=== PATIENT | male | born 1940 | race Caucasian/White ===

== ENCOUNTER → 2018-04-29 10:13 | Outpatient (CLI) | payer MEDICARE, OTHER, SELFPAY ==
[2018-04-29 11:01] LABS: Blood Urea Nitrogen 20 mg/dL (9-20); Calcium 9.7 mg/dL (8.4-10.2); Carbon Dioxide 22 mmol/L (22-32); Chloride 101 mmol/L (98-107); Estimated Glomerular Filt Rate > 60.0 mL/min (>60); Glucose 106 mg/dL (80-110); HEMOLYSIS < 15 (0-50); Potassium 4.5 mmol/L (3.4-5.1); Sodium 141 mmol/L (137-145)
[2018-04-29 12:06] LABS: Creatinine Urine Random 77.2 mg/dL; Protein (Total) Urine Random 65 mg/dL (0-12); Protein Creatinine Ratio Urine 0.84 GRAM/24H
[2018-04-29 13:43] LABS: Hematocrit 40.2 % (41-53); Hemoglobin 13.8 g/dL (13.5-17.5); Mean Corpuscular HGB Conc 34.3 % (30-36); Mean Corpuscular Hemoglobin 31.4 PG (26-34); Mean Corpuscular Volume 91.6 fL (80-100); Platelet Count 200 X10^3/uL (150-400); Red Blood Cell Count 4.39 X10^6/uL (4.5-5.9); Red Cell Distribution Width 13.7 % (11.6-14.8); White Blood Cell Count 4.5 X10^3/uL (4.5-11.0)
[2018-05-01 17:35] LABS: Tacrolimus 8.2 mcg/L (5.0-20.0)
== END ==
PROVIDERS: PCP Family Medicine; Visit Provider Student in an Organized Health Care Education/Training Program
DX: N05.9 Unspecified nephritic syndrome with unspecified morphologic changes (principal); D63.1 Anemia in chronic kidney disease; T86.10 Unspecified complication of kidney transplant; R80.9 Proteinuria, unspecified
CPT/HCPCS: 36415; 80048; 80197; 82570; 84156; 85027

== ENCOUNTER → 2018-06-24 13:06 | Outpatient (CLI) | payer MEDICARE, OTHER, SELFPAY ==
[2018-06-24 14:27] LABS: Hemoglobin 13.8 g/dL (13.5-17.5); Mean Corpuscular HGB Conc 34.5 % (30-36); Mean Corpuscular Hemoglobin 31.5 PG (26-34); Mean Corpuscular Volume 91.4 fL (80-100); Platelet Count 229 X10^3/uL (150-400); Red Blood Cell Count 4.38 X10^6/uL (4.5-5.9); Red Cell Distribution Width 14.1 % (11.6-14.8); White Blood Cell Count 4.3 X10^3/uL (4.5-11.0)
[2018-06-24 15:06] LABS: Blood Urea Nitrogen 24 mg/dL (9-20); Calcium 10.8 mg/dL (8.4-10.2); Carbon Dioxide 25 mmol/L (22-32); Chloride 101 mmol/L (98-107); Estimated Glomerular Filt Rate > 60.0 mL/min (>60); Glucose 117 mg/dL (80-110); HEMOLYSIS < 15 (0-50); Potassium 5.3 mmol/L (3.4-5.1); Sodium 140 mmol/L (137-145)
[2018-06-24 15:48] LABS: Creatinine Urine Random 78.8 mg/dL; Protein (Total) Urine Random 65 mg/dL (0-12); Protein Creatinine Ratio Urine 0.82 GRAM/24H
[2018-06-27 13:52] LABS: Tacrolimus 7.1 mcg/L (5.0-20.0)
== END ==
PROVIDERS: PCP Family Medicine; Visit Provider Student in an Organized Health Care Education/Training Program
DX: N05.9 Unspecified nephritic syndrome with unspecified morphologic changes (principal); D70.9 Neutropenia, unspecified; D63.1 Anemia in chronic kidney disease; T86.10 Unspecified complication of kidney transplant; R80.9 Proteinuria, unspecified; I50.32 Chronic diastolic (congestive) heart failure; D50.0 Iron deficiency anemia secondary to blood loss (chronic); D64.9 Anemia, unspecified
CPT/HCPCS: 36415; 80048; 80197; 82570; 84156; 85027

== ENCOUNTER → 2018-06-29 17:13 | Outpatient (CLI) | payer MEDICARE, OTHER, SELFPAY ==
[2018-06-29 17:55] LABS: HEMOLYSIS < 15 (0-50); Potassium 5.1 mmol/L (3.4-5.1)
== END ==
PROVIDERS: PCP Family Medicine; Visit Provider Student in an Organized Health Care Education/Training Program
DX: E78.5 Hyperlipidemia, unspecified (principal)
CPT/HCPCS: 36415; 84132

== ENCOUNTER → 2018-09-07 16:54 | Outpatient (CLI) | payer MEDICARE, OTHER, SELFPAY ==
--- NOTE | 2018-09-07 17:00 | DI.RAD.S_ITS ---
PROCEDURE: XR LUMBAR SPINE 2-3V INDICATIONS: HX OF COMPRESSION FRACTURE/BACK PAIN TECHNIQUE: 3 views of the lumbar spine were acquired. COMPARISON: [facility], CR, L-SPINE 2-3 VIEWS, 01/18/2018, 14:29. [facility] [place], CR, XR LUMBAR SPINE 2 OR 3 VIEWS, 04/08/2018, 16:18. [facility], MR, L-SPINE WITHOUT CONTRAST, 02/18/2018, 16:17. FINDINGS: Bones: 5 [id number] vertebrae are present. There is normal bony alignment. Mild chronic vertebral body compression fracture of L2 appears unchanged. There is severe degenerative disc disease at L2-L3, and mild to moderate degenerative disc disease at L1-L2, L3-L4 and L5 -S1. Moderate facet disease at L5-S1. No suspicious bony lesions. Soft tissues: Overlying bowel gas pattern is normal. No suspicious soft tissue calcifications. IMPRESSION: 1. Mild chronic compression fracture of L2. 2. Degenerative disc and facet disease. Dictated by: Chelsea Gongora M.D. on 09/08/2018 at 8:50 Approved by: Chelsea Gongora M.D. on 09/08/2018 at 8:53
== END ==
PROVIDERS: PCP Family Medicine; Visit Provider Family Medicine
DX: M54.9 Dorsalgia, unspecified (principal); M48.56XS Collapsed vertebra, not elsewhere classified, lumbar region, sequela of fracture; M51.36 Other intervertebral disc degeneration, lumbar region; M51.37 Other intervertebral disc degeneration, lumbosacral region
CPT/HCPCS: 72100

== ENCOUNTER → 2018-10-05 14:33 | Outpatient (CLI) | payer MEDICARE, OTHER, SELFPAY ==
[2018-10-05 15:35] LABS: Hematocrit 38.1 % (41-53); Hemoglobin 13.1 g/dL (13.5-17.5); Mean Corpuscular HGB Conc 34.3 % (30-36); Mean Corpuscular Hemoglobin 31.3 PG (26-34); Mean Corpuscular Volume 91.2 fL (80-100); Platelet Count 209 X10^3/uL (150-400); Red Blood Cell Count 4.18 X10^6/uL (4.5-5.9); Red Cell Distribution Width 13.6 % (11.6-14.8); White Blood Cell Count 3.5 X10^3/uL (4.5-11.0)
[2018-10-05 16:06] LABS: Creatinine Urine Random 92.1 mg/dL; Protein (Total) Urine Random 60 mg/dL (0-12); Protein Creatinine Ratio Urine 0.65 GRAM/24H
[2018-10-05 16:13] LABS: Blood Urea Nitrogen 16 mg/dL (9-20); Calcium 9.6 mg/dL (8.4-10.2); Carbon Dioxide 23 mmol/L (22-32); Chloride 104 mmol/L (98-107); Estimated Glomerular Filt Rate > 60.0 mL/min (>60); Glucose 53 mg/dL (80-110); HEMOLYSIS < 15 (0-50); Sodium 143 mmol/L (137-145)
[2018-10-08 11:45] LABS: Tacrolimus 10.5 mcg/L (5.0-20.0)
== END ==
PROVIDERS: PCP Family Medicine; Visit Provider Student in an Organized Health Care Education/Training Program
DX: N05.9 Unspecified nephritic syndrome with unspecified morphologic changes (principal); D70.9 Neutropenia, unspecified; D63.1 Anemia in chronic kidney disease; T86.10 Unspecified complication of kidney transplant
CPT/HCPCS: 36415; 80048; 80197; 82570; 84156; 85027

== ENCOUNTER 2018-12-29 08:08 | Day surgery (SDC) | payer MEDICARE, OTHER, SELFPAY ==
[2018-12-29] MEDS: PROPARACAINE 0.5% OPHTH SOL 2 DROPS EYE-OP (08:21)
[2018-12-29] MEDS: CATARACT EYE COMPOUND (10 DROPS/SYRINGE) 3 DROPS EYE-OP (08:25)
[2018-12-29 08:28] VITALS: BP 171/93; PULSE 69; RESP 16; TEMP 36.2; O2SAT 97; BMI 27.2
--- NOTE | 2018-12-29 08:42 | SUR.PREOP ---
pt does not know when he took his medicines or what dosages he is on. He states he has memory problems
[2018-12-29 08:56] VITALS: BMI 27.2
--- NOTE | 2018-12-29 09:06 | PM.PREOP ---
Pre-operative Note Interval Note History & Physical reviewed/Exam performed by Physician: No Changes to H&P: No
--- NOTE | 2018-12-29 09:06 | PM.OP.1 ---
Operative Date/Time/Diagnoses Pre-op diagnosis: Nuclear cataract right eye Procedure & Clinicians Procedure: Cataract Surgery Same procedure as scheduled: Yes Surgeon: Sb Huang Anesthesia Type: MAC +/- and Sedation Operative Notes Procedure in detail: Patient brought to the operating suite. Tetracaine drops placed in the right eye. Patient was prepped and draped in sterile manner. Wire lid speculum was placed in the eye. Betadine drops were placed on the eye. This was irrigated. Lidocaine jelly was placed on the eye. A paracentesis port was created with a side-port blade. 0.1 mL 1% preservative free lidocaine was injected into the anterior chamber. The anterior chamber was deepened with viscoelastic. 2.6 mm keratome was used to create a temporal clear corneal incision. Cystotome and Utrata forceps were used to create continuous tear capsulorrhexis. Balanced salt solution was used to hydro dissect the nucleus. The phacoemulsification handpiece was inserted and the nucleus was removed using the stop and chop technique. The irrigation aspiration handpiece was inserted and the remaining cortex was removed. Anterior chamber was deepened with viscoelastic. An Marino ZCB00 intraocular lens with a power of 25.0 was injected into the capsular bag. Irrigation aspiration handpiece was inserted and the remaining viscoelastic was removed. Incision was hydrated with balanced salt solution and found to be leak free with pressure with Weck-Anai sponges. 0.1 mL Vigamox injected anterior chamber. 0.3 mL Kenalog 10 mg was injected subconjunctivally. Lid speculum was removed. The patient left the operating room in excellent condition. Complications: none Condition: stable Disposition: same day surgery
[2018-12-29] MEDS: PHENYLEPHRINE/LIDOCAINE VIAL (OR) 0.2 ML EYE-OP (09:15)
[2018-12-29] MEDS: TRIAMCINOLONE 50 MG/5 ML VIAL INJ (09:16)
[2018-12-29] MEDS: MOXIFLOXACIN OPHTH DROPS 3 ML BOTTLE 2 DROPS INJ (09:16)
[2018-12-29] MEDS: LIDOCAINE JELLY 2% 5 ML 1 APPLIC TOP (09:16)
[2018-12-29] MEDS: CHONDROIDTIN/SOD HYALURONATE 1.05 ML SYRINGE INTRAOCULA (09:16)
[2018-12-29] MEDS: BALANCED SALT IRRIG SOLN NO.2 500 ML, EPINEPHrine 1 MG IRR (09:17)
[2018-12-29] MEDS: TETRACAINE 0.5% OPHTH DROPS 4 ML 2 DROPS EYE-OP (09:17)
[2018-12-29 09:37] VITALS: BP 122/71; PULSE 63; RESP 16; TEMP 36.3; O2SAT 96
== END 2018-12-29 09:53 ==
LOC: OR 08:10
PROVIDERS: PCP Family Medicine; Visit Provider Ophthalmology
DX: H25.11 Age-related nuclear cataract, right eye (principal); E11.9 Type 2 diabetes mellitus without complications; Z79.84 Long term (current) use of oral hypoglycemic drugs
CPT/HCPCS: J0171; J2250; J3301

== ENCOUNTER → 2019-01-11 13:22 | Outpatient (CLI) | payer MEDICARE, OTHER, SELFPAY ==
[2019-01-11 16:43] LABS: Hematocrit 40.3 % (41-53); Hemoglobin 13.3 g/dL (13.5-17.5); Mean Corpuscular Hemoglobin 30.6 PG (26-34); Mean Corpuscular Volume 92.7 fL (80-100); Platelet Count 189 X10^3/uL (150-400); Red Blood Cell Count 4.34 X10^6/uL (4.5-5.9); Red Cell Distribution Width 14.3 % (11.6-14.8); White Blood Cell Count 3.5 X10^3/uL (4.5-11.0)
[2019-01-11 18:18] LABS: Creatinine Urine Random 70.7 mg/dL; Protein (Total) Urine Random 91 mg/dL (0-12); Protein Creatinine Ratio Urine 1.28 GRAM/24H
[2019-01-11 18:20] LABS: BUN Creatinine Ratio 18.8 (6-22); Blood Urea Nitrogen 15 mg/dL (9-20); Calcium 9.3 mg/dL (8.4-10.2); Carbon Dioxide 25 mmol/L (22-32); Chloride 103 mmol/L (98-107); Estimated Glomerular Filt Rate > 60.0 mL/min (>60); Glucose 81 mg/dL (80-110); HEMOLYSIS < 15 (0-50); Potassium 4.1 mmol/L (3.4-5.1); Sodium 141 mmol/L (137-145)
== END ==
PROVIDERS: Family Provider Family Medicine; PCP Family Medicine; Visit Provider Student in an Organized Health Care Education/Training Program
DX: N05.9 Unspecified nephritic syndrome with unspecified morphologic changes (principal); R80.9 Proteinuria, unspecified; D70.9 Neutropenia, unspecified; D63.1 Anemia in chronic kidney disease
CPT/HCPCS: 36415; 80048; 82570; 84156; 85027

== ENCOUNTER → 2019-02-24 14:28 | Outpatient (CLI) | payer MEDICARE, OTHER, SELFPAY ==
[2019-02-24 14:36] LABS: Bacteria Urine None Seen
[2019-02-24 16:05] LABS: BUN Creatinine Ratio 23.3 (6-22); Blood Urea Nitrogen 21 mg/dL (9-20); Calcium 9.8 mg/dL (8.4-10.2); Carbon Dioxide 22 mmol/L (22-32); Chloride 102 mmol/L (98-107); Estimated Glomerular Filt Rate > 60.0 mL/min (>60); Glucose 119 mg/dL (80-110); HEMOLYSIS < 15 (0-50); Potassium 4.5 mmol/L (3.4-5.1); Sodium 139 mmol/L (137-145)
[2019-02-24 17:11] LABS: Creatinine Urine Random 108.7 mg/dL
[2019-02-24 17:27] LABS: Protein (Total) Urine Random 230 mg/dL (0-12); Protein Creatinine Ratio Urine 2.11 GRAM/24H
[2019-02-24 17:51] LABS: Appearance Urine UA CLEAR; Bilirubin Urine UA NEGATIVE (NEGATIVE); Color Urine UA YELLOW; Glucose Urine UA NEGATIVE (Negative); Ketones Urine UA NEGATIVE (NEGATIVE); Leukocyte Esterase Urine UA NEGATIVE (NEGATIVE); Nitrite Urine UA NEGATIVE (Negative); Occult Blood Urine UA NEGATIVE (Negative); Protein Urine UA 2+ (Negative); Specific Gravity Urine UA 1.025 (1.000-1.035); Urobilinogen Urine UA 0.2 E.U./dL (0.2)
[2019-02-24 18:10] LABS: Culture Indicated Urine Cult Not Indicated; RBC Urine 0-1/HPF (0-5/HPF); Squamous Epithelial Cell Urine 0-1 /HPF (0-5/HPF); WBC Urine 0-1/HPF (0-5/HPF)
== END ==
PROVIDERS: Family Provider Family Medicine; PCP Family Medicine; Visit Provider Student in an Organized Health Care Education/Training Program
DX: N05.9 Unspecified nephritic syndrome with unspecified morphologic changes (principal); N30.00 Acute cystitis without hematuria; R80.9 Proteinuria, unspecified
CPT/HCPCS: 36415; 80048; 81001; 82570; 84156

== ENCOUNTER → 2019-03-29 14:25 | Outpatient (CLI) | payer MEDICARE, OTHER, SELFPAY ==
[2019-03-29 15:38] LABS: Hemoglobin 14.2 g/dL (13.5-17.5); Mean Corpuscular HGB Conc 33.8 % (30-36); Mean Corpuscular Volume 94.6 fL (80-100); Platelet Count 196 X10^3/uL (150-400); Red Blood Cell Count 4.44 X10^6/uL (4.5-5.9); Red Cell Distribution Width 14.8 % (11.6-14.8); White Blood Cell Count 7.9 X10^3/uL (4.5-11.0)
[2019-03-29 16:21] LABS: Creatinine Urine Random 124.5 mg/dL
[2019-03-29 16:22] LABS: Blood Urea Nitrogen 31 mg/dL (9-20); Calcium 9.4 mg/dL (8.4-10.2); Carbon Dioxide 23 mmol/L (22-32); Chloride 95 mmol/L (98-107); Estimated Glomerular Filt Rate > 60.0 mL/min (>60); Glucose 306 mg/dL (80-110); HEMOLYSIS < 15 (0-50); Sodium 132 mmol/L (137-145)
[2019-03-29 16:23] LABS: Potassium 5.4 mmol/L (3.4-5.1)
[2019-03-29 16:30] LABS: Protein (Total) Urine Random 277 mg/dL (0-12); Protein Creatinine Ratio Urine 2.22 GRAM/24H
== END ==
PROVIDERS: Family Provider Family Medicine; PCP Family Medicine; Visit Provider Student in an Organized Health Care Education/Training Program
DX: D70.9 Neutropenia, unspecified (principal); N05.9 Unspecified nephritic syndrome with unspecified morphologic changes; D63.1 Anemia in chronic kidney disease; R80.9 Proteinuria, unspecified
CPT/HCPCS: 36415; 80048; 82570; 84156; 85027

== ENCOUNTER → 2019-05-17 10:44 | Outpatient (CLI) | payer MEDICARE, OTHER, SELFPAY ==
[2019-05-17 11:31] LABS: Hematocrit 36.6 % (41-53); Hemoglobin 12.5 g/dL (13.5-17.5); Mean Corpuscular HGB Conc 34.1 % (30-36); Mean Corpuscular Hemoglobin 31.5 PG (26-34); Mean Corpuscular Volume 92.3 fL (80-100); Platelet Count 214 X10^3/uL (150-400); Red Blood Cell Count 3.97 X10^6/uL (4.5-5.9); White Blood Cell Count 7.9 X10^3/uL (4.5-11.0)
[2019-05-17 11:51] LABS: BUN Creatinine Ratio 22.5 (6-22); Blood Urea Nitrogen 18 mg/dL (9-20); Calcium 9.3 mg/dL (8.4-10.2); Carbon Dioxide 24 mmol/L (22-32); Chloride 96 mmol/L (98-107); Estimated Glomerular Filt Rate > 60.0 mL/min (>60); Glucose 215 mg/dL (80-110); HEMOLYSIS < 15 (0-50); Potassium 4.5 mmol/L (3.4-5.1); Sodium 135 mmol/L (137-145)
[2019-05-17 15:20] LABS: Creatinine Urine Random 129.4 mg/dL
[2019-05-17 15:29] LABS: Protein (Total) Urine Random 265 mg/dL (0-12); Protein Creatinine Ratio Urine 2.04 GRAM/24H
== END ==
PROVIDERS: Family Provider Family Medicine; PCP Family Medicine; Visit Provider Student in an Organized Health Care Education/Training Program
DX: R80.9 Proteinuria, unspecified (principal); N05.9 Unspecified nephritic syndrome with unspecified morphologic changes
CPT/HCPCS: 36415; 80048; 82570; 84156; 85027

== ENCOUNTER → 2019-06-25 16:55 | Outpatient (CLI) | payer MEDICARE, OTHER, SELFPAY ==
[2019-06-25 18:01] LABS: Hematocrit 40.6 % (41-53); Hemoglobin 13.8 g/dL (13.5-17.5); Mean Corpuscular HGB Conc 34.1 % (30-36); Mean Corpuscular Hemoglobin 33.7 PG (26-34); Mean Corpuscular Volume 98.9 fL (80-100); Platelet Count 279 X10^3/uL (150-400); Red Blood Cell Count 4.11 X10^6/uL (4.5-5.9); Red Cell Distribution Width 18.4 % (11.6-14.8); White Blood Cell Count 8.5 X10^3/uL (4.5-11.0)
[2019-06-25 18:22] LABS: Blood Urea Nitrogen 27 mg/dL (9-20); Calcium 10.1 mg/dL (8.4-10.2); Carbon Dioxide 24 mmol/L (22-32); Chloride 94 mmol/L (98-107); Creatinine Urine Random 180.8 mg/dL; Estimated Glomerular Filt Rate > 60.0 mL/min (>60); Glucose 357 mg/dL (80-110); HEMOLYSIS < 15 (0-50); Potassium 5.2 mmol/L (3.4-5.1); Sodium 132 mmol/L (137-145)
[2019-06-25 18:53] LABS: Protein (Total) Urine Random 260 mg/dL (0-12); Protein Creatinine Ratio Urine 1.43 GRAM/24H
== END ==
PROVIDERS: PCP Family Medicine; Visit Provider Student in an Organized Health Care Education/Training Program
DX: N05.9 Unspecified nephritic syndrome with unspecified morphologic changes (principal); D70.9 Neutropenia, unspecified; D63.1 Anemia in chronic kidney disease; R80.9 Proteinuria, unspecified
CPT/HCPCS: 36415; 80048; 82570; 84156; 85027

== ENCOUNTER 2019-07-31 08:29 | Emergency (ER) | payer MEDICARE, OTHER, SELFPAY ==
[2019-07-31 08:41] VITALS: BP 104/71; PULSE 78; RESP 15; TEMP 36.2; O2SAT 95
--- NOTE | 2019-07-31 08:42 | ED_ITS ---
HPI - Fall General Chief Complaint: Fall Stated Complaint: fell, thinks he broke his back Time Seen by Provider: 07/31/19 08:30 Source: patient and family Mode of arrival: Ambulatory Limitations: no limitations History of Present Illness HPI Narrative: 79-year-old nonsmoker with history of diabetes and hypertension presents with low back pain after an accidental ground level fall at home last night. He was walking down some steps and slipped and landed directly on his buttocks. He now has lumbar and sacral pain. He denies any head or neck pain. He is not dizzy nor weak or lightheaded. He denies any chest pain or shortness of breath. He denies any trouble with bowel or bladder control. He denies numbness, tingling or weakness. The pain is worse with motion and improves with rest. It is in the midline and left lower part of his back and does not radiate down the leg. Related Data Home Medications Medication Instructions Recorded Confirmed ezetimibe [Zetia] 10 mg PO DAILY 12/29/18 12/29/18 glyburide 2.5 mg PO DAILY 12/29/18 12/29/18 insulin glargine [Lantus U-100 70 unit SUBCUT BID 12/29/18 12/29/18 Insulin] lidocaine [Lidoderm] 3 patch TOPICAL QDAYP 12/29/18 12/29/18 lisinopril 20 mg PO DAILY 12/29/18 12/29/18 metformin 500 mg PO BID 12/29/18 12/29/18 metoprolol tartrate 25 mg PO BID 12/29/18 12/29/18 zolpidem 5 mg PO BEDTIME 12/29/18 12/29/18 Previous Rx's Medication Instructions Recorded hydrocodone-acetaminophen 1 tab PO Q4-6H PRN #20 tab 07/31/19 ketorolac 10 mg PO Q6H PRN #14 tab 07/31/19 lidocaine [Lidoderm] 1 patch TOP DAILY #15 each 07/31/19 Allergies Allergy/AdvReac Type Severity Reaction Status Date / Time INGREDIENT: NO KNOWN - NO Allergy Unknown Uncoded 02/18/18 12:52 KNOWN DRUG ALLERGY Review of Systems Constitutional Constitutional: Denies chills, Denies fatigue, Denies fever(s), Denies frequent falls, Denies lethargy and Denies weakness Eyes Eyes: Denies change in vision, Denies eye discharge, Denies irritation and Denies loss of vision ENT Ears, Nose, Mouth, and Throat: Denies change in voice, Denies dizziness, Denies neck pain, Denies sore throat and Denies throat swelling Cardiovascular Cardiovascular: Denies chest pain, Denies irregular heart rhythm, Denies lightheadedness, Denies palpitations, Denies dyspnea, Denies dyspnea on exertion and Denies orthopnea Respiratory Respiratory: Denies cough, Denies dyspnea, Denies dyspnea on exertion and Denies wheezing Gastrointestinal Gastrointestinal: Denies abdominal pain, Denies change in bowel habits, Denies diarrhea, Denies nausea and Denies vomiting Genitourinary Genitourinary: Denies hematuria, Denies flank pain, Denies urinary incontinence and Denies urinary urgency Musculoskeletal Musculoskeletal: Reports back pain, Denies muscle weakness, Denies neck pain, Denies numbness and Denies tingling Integumentary/Breasts Skin/Breast: Denies pruritus, Denies erythema, Denies rash and Denies wounds Neurologic Neurologic: Denies behavioral changes, Denies confusion, Denies dizziness, Denies frequent falls, Denies loss of vision, Denies numbness, Denies tingling and Denies weakness Psychiatric Psychiatric: Denies anxiety, Denies behavioral changes, Denies confusion, Denies depression, Denies homicidal ideation and Denies suicidal ideation Endocrine Endocrine: Denies fatigue, Denies flushing and Denies palpitations Hematologic/Lymphatic Hematologic/Lymphatic: Denies easy bruising Allergic/Immunologic Allergic/Immunologic: Denies urticaria, Denies throat swelling and Denies wheezing Exam Narrative Exam Narrative: GENERAL: [79] year old patient appears stated age. Well- nourished, well-developed patient, in mild distress. HEAD: Atraumatic. Normocephalic. EYES: Pupils equal round and reactive. Extraocular motions intact. No scleral icterus. No injection or drainage. ENT: Nose without bleeding, purulent drainage. Throat without erythema, tonsillar hypertrophy or exudate. Airway patent. NECK: Trachea midline. Non tender CARDIOVASCULAR: Regular rate and rhythm without murmurs, gallops, or rubs. RESPIRATORY: Clear to auscultation. Breath sounds equal bilaterally. No wheezes, rales, or rhonchi. GASTROINTESTINAL: Abdomen soft, non-tender, nondistended. EXTREMITIES: No edema or joint tenderness. BACK: Midline lower lumbar pain to palp. No obvious deformity. No stepoffs. No saddle anesthesia. Patellar reflexes in tact. Sensation in tact NEURO: AOx3. SKIN: No rash or erythema of visible areas Initial Vital Signs Initial Vital Signs: Vital Signs Temperature 97.2 F L 07/31/19 08:41 Pulse Rate 78 07/31/19 08:41 Respiratory Rate 15 07/31/19 08:41 Blood Pressure 104/71 07/31/19 08:41 Pulse Oximetry 95 07/31/19 08:41 PFSH Social History household members: spouse Smoking Status: Never smoker Social History household members: spouse Smoking Status: Never smoker Course Orders Ordered: ED Orders 07/31/19 08:42 XR lumbar spine 2-3V Stat XR sacrum coccyx min 2V Stat 07/31/19 09:33 MR lumbar spine wo con Stat Reevaluation(s) Reevaluation #1: Though patient initially denied any neurologic symptoms such as loss of bowel or bladder control his states he actually lost control of his bladder earlier today. At this point an MRI was ordered to rule out cauda Vital Signs Vital signs: Vital Signs - 8 hr 07/31/19 08:41 07/31/19 11:14 07/31/19 12:27 Temperature 97.2 F L 96.6 F L Pulse Rate 78 70 69 Respiratory Rate 15 18 16 Blood Pressure 104/71 Blood Pressure [Right Arm] 105/67 115/79 Pulse Oximetry 95 97 95 MDM - Fall Imaging Data Lumbar / Sacral Xray: Radiologist's impression: [address] [address] XRay Report Signed Patient: Mendy Quarles EMR#: [id number] : 1940Acct:[id number] Age/Sex: 79 / MDate of Service: 07/31/19 Loc: ED Accession Number: [id number] Procedure: XR lumbar spine 2-3V Ordering Provider: Gibson Mcconnell D.O. PROCEDURE: XR LUMBAR SPINE 2-3V INDICATIONS: fall with low back pain TECHNIQUE: 3 views of the lumbar spine were acquired. COMPARISON: [facility], [place], XR SACRUM COCCYX MIN 2V, 07/31/2019, 8:52. [facility], [place], XR LUMBAR SPINE 2-3V, 09/07/2018, 16:39. FINDINGS: Bones: 5 [id number] vertebrae are present. There is mild retrolisthesis at L2-L3 and L3-L4. Mild anterolisthesis also demonstrated at L4-L5 as well as minimal anterolisthesis at L1-L2. There is a mild superior endplate compression deformity of the anterior L2 vertebral body redemonstrated. No new compression fractures. Multilevel disc space narrowing redemonstrated including severe narrowing at L4-L5 with endplate sclerosis and osteophytosis. There is also facet arthropathy in the lower lumbar spine most prominent at L5-S1. Soft tissues: Overlying bowel gas pattern is normal. There is diffuse vascular calcification of the aorta. IMPRESSION: 1. No definite acute fracture or subluxation. 2. Mild multilevel spondylolisthesis and mild superior endplate compression deformity at L2 appear similar to the prior study. Dictated by: Michel Ramey M.D. on 07/31/2019 at 8:09 Approved by: Michel Ramey M.D. on 07/31/2019 at 8:13 [facility] DATE TYPE STATUS AUTHOR Hx 07/31/19 09:33 Michel Ramey 07/31/19 08:42 Michel Ramey 07/31/19 08:42 Michel Ramey 09/07/18 17:00 Cathi Gongora Terr[place] E 79, M0 1940 [facility] ED 86.183kg Fall Search Chart No Data to Display ONSET Today 12:27 Mendy Quarles 79 M [address] [address] XRay Report Signed Patient: Mendy Quarles EMR#: [id number] : 1940Acct:[id number] Age/Sex: 79 / MDate of Service: 07/31/19 Loc: ED Accession Number: [id number] Procedure: XR sacrum coccyx min 2V Ordering Provider: Gibson Mcconnell D.O. PROCEDURE: XR SACRUM COCCYX MIN 2V INDICATIONS: fall with lumbar/sacrum pain TECHNIQUE: 3 views of the sacrum and coccyx acquired. COMPARISON: [facility], [place], XR LUMBAR SPINE 2-3V, 09/07/2018, 16:39. [facility], [place], XR LUMBAR SPINE 2-3V, 07/31/2019, 8:49. FINDINGS: Bones: No definite acute displaced fracture. There is degenerative disc disease and facet arthropathy in the visualized lower lumbar spine including moderate disc space narrowing at L5-S1 with endplate sclerosis and osteophytosis as well as vacuum disc phenomenon. No suspicious bony lesions. Soft tissues: Visualized bowel gas pattern is normal. There are diffuse vascular calcifications. IMPRESSION: 1. No definite displaced fracture. Dictated by: Michel Ramey M.D. on 07/31/2019 at 8:13 Approved by: Michel Ramey M.D. on 07/31/2019 at 8:15 Lumbar MRI: Radiologist's impression: [place] [address] Magnetic Resonance Report Signed Patient: Mendy Quarles EMR#: [id number] : 1940Acct:[id number] Age/Sex: 79 / MDate of Service: 07/31/19 Loc: ED Accession Number: [id number] Procedure: MR lumbar spine wo con Ordering Provider: Gibson Mcconnell D.O. PROCEDURE: MR LUMBAR SPINE WO CON INDICATIONS: fall, back pain, loss of bladder control TECHNIQUE: Noncontrast sagittal T1 spin echo and T2 fast echo, sagittal STIR, axial T1 and T2 fast spin echo through the lumbar spine. In cases with scoliosis, additional coronal T2 fast spin echo may be performed. COMPARISON: [facility], [place], XR LUMBAR SPINE 2-3V, 09/07/2018, 16:39. [facility], [place], XR SACRUM COCCYX MIN 2V, 07/31/2019, 8:52. [facility], [place], XR LUMBAR SPINE 2-3V, 07/31/2019, 8:49. FINDINGS: Image quality: Excellent. Alignment and Curvature: There is a minimal anterolisthesis at T12-L1 and L1-L2 as well as mild grade 1 anterolisthesis at L4-L5. Minimal retrolisthesis demonstrated at L2-L3 and L3-L4. Bone Marrow: Marrow is of normal overall signal. There is a minimally depressed inferior endplate compression fracture of the T12 vertebral body with associated bone marrow edema consistent with an acute fracture. There is superior endplate scalloping along the superior endplate which appears chronic. There is overall loss of height of approximately 35% in the T12 vertebral body centrally. No displaced fragments in the spinal canal. There is also bone marrow edema with low signal intensity lines along the superior endplate of L1 and along the inferior endplate of L4 compatible with nondepressed impaction fractures. A chronic superior endplate compression deformity is redemonstrated at L2 with up to approximately 45% loss of height. No retropulsed bony fragments. Spinal Cord: Conus medullaris terminates at the L1 level. Visualized cord demonstrates normal signal and size. Paraspinous Soft Tissues: No paravertebral masses. There is an exophytic cyst partially visualized in the left kidney. T12-L1: No spinal canal or neuroforaminal narrowing. L1-L2: Mild to moderate loss of disc height with a minimal broad-based disc bulge. There is minimal spinal canal and narrowing. No neuroforaminal narrowing. L2-L3: Severe loss of disc height with reactive endplate fatty changes as well as osteophytosis. There is mild facet arthropathy. There is associated mild spinal canal narrowing with mild bilateral neuroforaminal narrowing. L3-L4: Moderate loss of disc height with a small broad-based disc bulge. There is mild facet arthropathy and ligamentum flavum hypertrophy. The findings contribute to mild spinal canal narrowing with mild bilateral neuroforaminal narrowing. L4-L5: Mild loss of disc height with a small broad-based disc bulge. There is moderate facet arthropathy and ligamentum flavum hypertrophy. There is mild overall spinal canal narrowing with mild bilateral neuroforaminal narrowing. L5-S1: Moderate loss of disc height with a small broad-based disc bulge and mild facet arthropathy. There is minimal spinal canal narrowing with moderate to severe left and mild right neuroforaminal narrowing. IMPRESSION: 1. Minimally depressed acute inferior endplate compression fracture of the T12 vertebral body as described. No retropulsed fragments or associated spinal canal narrowing. 2. Nondepressed impaction fractures along the superior endplate of L1 and inferior endplate of L4 without associated retropulsed fragments. 3. Multilevel spondylolisthesis and degenerative changes without high-grade spinal canal narrowing. There is moderate to severe left neuroforaminal narrowing at L5-S1. Or Dictated by: Michel Ramey M.D. on 07/31/2019 at 10:34 Approved by: Michel Ramey M.D. on 07/31/2019 at 10:46 Discharge Plan Departure Patient Disposition: Home Clinical Impression: L1 vertebral fracture Qualifiers: Encounter type: initial encounter Fracture type: closed Fracture morphology: unspecified fracture morphology Qualified Code(s): S32.019A - Unspecified fracture of first lumbar vertebra, initial encounter for closed fracture Discharge Date/Time: 07/31/19 12:45 Instructions: How to Prevent Falls Activity Restrictions/Additional Instructions: You have been prescribed narcotic medications. While on these medications you cannot drive or operate heavy machinery. Additionally you cannot sign legal documents or perform any duties such as this. 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 Please understand that we cannot provide further refills of narcotics or controlled substances through the ED and your pain management will need to be through your Primary Care Provider Prescriptions: New hydrocodone-acetaminophen 5-325 mg tablet 1 tab PO Q4-6H PRN (Reason: pain) Qty: 20 RF: 0 ketorolac 10 mg tablet 10 mg PO Q6H PRN (Reason: pain) Qty: 14 RF: 0 lidocaine [Lidoderm] 5 % adhesive patch,medicated 1 patch TOP DAILY Qty: 15 RF: 0 No Action lidocaine [Lidoderm] 1 EACH adhesive patch,medicated 3 patch Topical QDAYP RF: 0 metformin 500 mg Tablet 500 mg PO BID RF: 0 Lantus U-100 Insulin 100 unit/mL Solution 70 unit SUBCUT BID RF: 0 glyburide 2.5 mg Tablet 2.5 mg PO DAILY RF: 0 lisinopril 20 mg Tablet 20 mg PO DAILY RF: 0 zolpidem 5 mg Tablet 5 mg PO BEDTIME RF: 0 ezetimibe [Zetia] 10 mg Tablet 10 mg PO DAILY RF: 0 metoprolol tartrate 25 mg Tablet 25 mg PO BID RF: 0 Referrals: Berto Curran MD [Primary Care Provider] -
--- NOTE | 2019-07-31 09:33 | DI.MRI.S_ITS ---
PROCEDURE: MR LUMBAR SPINE WO CON INDICATIONS: fall, back pain, loss of bladder control TECHNIQUE: Noncontrast sagittal T1 spin echo and T2 fast echo, sagittal STIR, axial T1 and T2 fast spin echo through the lumbar spine. In cases with scoliosis, additional coronal T2 fast spin echo may be performed. COMPARISON: [facility], [place], XR LUMBAR SPINE 2-3V, 09/07/2018, 16:39. [facility], [place], XR SACRUM COCCYX MIN 2V, 07/31/2019, 8:52. [facility], [place], XR LUMBAR SPINE 2-3V, 07/31/2019, 8:49. FINDINGS: Image quality: Excellent. Alignment and Curvature: There is a minimal anterolisthesis at T12-L1 and L1-L2 as well as mild grade 1 anterolisthesis at L4-L5. Minimal retrolisthesis demonstrated at L2-L3 and L3-L4. Bone Marrow: Marrow is of normal overall signal. There is a minimally depressed inferior endplate compression fracture of the T12 vertebral body with associated bone marrow edema consistent with an acute fracture. There is superior endplate scalloping along the superior endplate which appears chronic. There is overall loss of height of approximately 35% in the T12 vertebral body centrally. No displaced fragments in the spinal canal. There is also bone marrow edema with low signal intensity lines along the superior endplate of L1 and along the inferior endplate of L4 compatible with nondepressed impaction fractures. A chronic superior endplate compression deformity is redemonstrated at L2 with up to approximately 45% loss of height. No retropulsed bony fragments. Spinal Cord: Conus medullaris terminates at the L1 level. Visualized cord demonstrates normal signal and size. Paraspinous Soft Tissues: No paravertebral masses. There is an exophytic cyst partially visualized in the left kidney. T12-L1: No spinal canal or neuroforaminal narrowing. L1-L2: Mild to moderate loss of disc height with a minimal broad-based disc bulge. There is minimal spinal canal and narrowing. No neuroforaminal narrowing. L2-L3: Severe loss of disc height with reactive endplate fatty changes as well as osteophytosis. There is mild facet arthropathy. There is associated mild spinal canal narrowing with mild bilateral neuroforaminal narrowing. L3-L4: Moderate loss of disc height with a small broad-based disc bulge. There is mild facet arthropathy and ligamentum flavum hypertrophy. The findings contribute to mild spinal canal narrowing with mild bilateral neuroforaminal narrowing. L4-L5: Mild loss of disc height with a small broad-based disc bulge. There is moderate facet arthropathy and ligamentum flavum hypertrophy. There is mild overall spinal canal narrowing with mild bilateral neuroforaminal narrowing. L5-S1: Moderate loss of disc height with a small broad-based disc bulge and mild facet arthropathy. There is minimal spinal canal narrowing with moderate to severe left and mild right neuroforaminal narrowing. IMPRESSION: 1. Minimally depressed acute inferior endplate compression fracture of the T12 vertebral body as described. No retropulsed fragments or associated spinal canal narrowing. 2. Nondepressed impaction fractures along the superior endplate of L1 and inferior endplate of L4 without associated retropulsed fragments. 3. Multilevel spondylolisthesis and degenerative changes without high-grade spinal canal narrowing. There is moderate to severe left neuroforaminal narrowing at L5-S1. Or Dictated by: Michel Ramey M.D. on 07/31/2019 at 10:34 Approved by: Michel Ramey M.D. on 07/31/2019 at 10:46
[2019-07-31 11:14] VITALS: BP 105/67; PULSE 70; RESP 18; O2SAT 97
[2019-07-31 12:27] VITALS: BP 115/79; PULSE 69; RESP 16; TEMP 35.9; O2SAT 95
== END 2019-07-31 12:45 | disposition home or self-care (01) ==
PROVIDERS: Emergency Provider Emergency Medicine; PCP Family Medicine
DX: S32.019A Unspecified fracture of first lumbar vertebra, initial encounter for closed fracture (principal); W18.30XA Fall on same level, unspecified, initial encounter
CPT/HCPCS: 72100; 72148; 72220; 99283; 99284

== ENCOUNTER → 2019-08-09 15:25 | Outpatient (CLI) | payer MEDICARE, OTHER, SELFPAY ==
[2019-08-09 16:14] LABS: Hematocrit 40.8 % (41-53); Hemoglobin 13.9 g/dL (13.5-17.5); Mean Corpuscular HGB Conc 34.1 % (30-36); Mean Corpuscular Hemoglobin 34.3 PG (26-34); Mean Corpuscular Volume 100.6 fL (80-100); Platelet Count 280 X10^3/uL (150-400); Red Blood Cell Count 4.06 X10^6/uL (4.5-5.9); Red Cell Distribution Width 16.6 % (11.6-14.8); White Blood Cell Count 6.4 X10^3/uL (4.5-11.0)
[2019-08-09 17:14] LABS: BUN Creatinine Ratio 34.3 (6-22); Blood Urea Nitrogen 24 mg/dL (9-20); Calcium 9.3 mg/dL (8.4-10.2); Carbon Dioxide 23 mmol/L (22-32); Chloride 94 mmol/L (98-107); Estimated Glomerular Filt Rate > 60.0 mL/min (>60); Glucose 393 mg/dL (80-110); HEMOLYSIS < 15 (0-50); Potassium 4.8 mmol/L (3.4-5.1); Sodium 131 mmol/L (137-145)
[2019-08-09 17:41] LABS: Protein (Total) Urine Random 274 mg/dL (0-12)
[2019-08-09 17:42] LABS: Creatinine Urine Random 162.4 mg/dL; Protein Creatinine Ratio Urine 1.68 GRAM/24H
== END ==
PROVIDERS: PCP Family Medicine; Visit Provider Student in an Organized Health Care Education/Training Program
DX: N05.9 Unspecified nephritic syndrome with unspecified morphologic changes (principal); D70.9 Neutropenia, unspecified; R80.9 Proteinuria, unspecified; D63.1 Anemia in chronic kidney disease
CPT/HCPCS: 36415; 80048; 82570; 84156; 85027

== ENCOUNTER 2019-08-14 14:05 | Emergency (ER) | payer MEDICARE, OTHER, SELFPAY ==
[2019-08-14 14:14] VITALS: BP 129/76; PULSE 107; RESP 15; TEMP 36.4; O2SAT 94; BMI 27.2
--- NOTE | 2019-08-14 14:28 | DI.CT.S_ITS ---
PROCEDURE: CT FACIAL BONES WO CON INDICATIONS: Ground-level fall, facial injury. TECHNIQUE: Noncontrast 2.5 mm thick axial images acquired from the mandible through the frontal sinuses, with coronal and sagittal reformatting. For radiation dose reduction, the following was used: automated exposure control, adjustment of mA and/or kV according to patient size. COMPARISON: None. FINDINGS: Image quality: Diagnostic. Bones and teeth: Orbital miller are intact. Sinus miller show no fracture or deformity. The bony nasal septum is deviated towards the patient's left. There may be very subtle impacted fracture involving the right nasal bone (image 79, series 2). Visualized portions of the mandible demonstrate no fractures or subluxation. Zygomatic arches are intact. Pterygoid plates are intact. Visualized portions of the skull base and auditory canals are intact. Severe degenerative changes are noted involving the left temporomandibular joint. Sinuses: Paranasal sinuses are aerated, without fluid levels, mucosal thickening, or mucoceles. Mastoid air cells are aerated. Soft tissues: No edema, masses, or fluid collections. No enlarged lymph nodes. No soft tissue lacerations or debris. Extensive carotid artery atherosclerosis is evident at the level of the bilateral carotid bulbs. Parenchyma atrophy and areas of chronic small vessel ischemic change are present within the imaged portions of the brain. Please see the dictated CT of the brain for complete details from 08/14/19. IMPRESSION: 1. Probable minimally impacted right nasal bone fracture. Clinical correlation is recommended. 2. No fractures of the orbits or maxilla are evident. Dictated by: Yaw Levi M.D. on 08/14/2019 at 15:18 Approved by: Yaw Levi M.D. on 08/14/2019 at 15:22
--- NOTE | 2019-08-14 14:28 | DI.CT.S_ITS ---
PROCEDURE: CT CERVICAL SPINE WO CON INDICATIONS: pain sp fall TECHNIQUE: Noncontrast 3 mm thick sections acquired from the skull base to the T4 level. Sagittal and coronal reformats were then constructed. For radiation dose reduction, the following was used: automated exposure control, adjustment of mA and/or kV according to patient size. COMPARISON: None. FINDINGS: Image quality: Diagnostic. Bones: The cervical thoracic, craniocervical, and atlantoaxial junctions are well-maintained. There is straightening of the normal cervical lordosis with grade 1 anterolisthesis of C4 on C5. The vertebral body heights are well-maintained throughout the cervical spine. There is no acute fracture or dislocation. No suspicious osseous lesions are identified. Moderate multilevel degenerative changes of the cervical spine are present demonstrated multilevel moderate areas of disc height loss, disc osteophyte formation, and facet arthrosis. Soft tissues: Prevertebral soft tissues are normal in thickness. No paravertebral hematomas. No apical pneumothoraces. Carotid artery atherosclerosis is present. Aortic atherosclerosis is also noted. IMPRESSION: 1. No acute fracture of the cervical spine. 2. Moderate multilevel degenerative changes of the cervical spine. 3. Straightening of the normal cervical lordosis may be related to muscle spasm. Degenerative change may also result in this appearance. Dictated by: Yaw Levi M.D. on 08/14/2019 at 15:22 Approved by: Yaw Levi M.D. on 08/14/2019 at 15:29
--- NOTE | 2019-08-14 14:28 | DI.RAD.S_ITS ---
PROCEDURE: XR LUMBAR SPINE 2-3V INDICATIONS: pain sp fall TECHNIQUE: 3 views of the lumbar spine were acquired. COMPARISON: [facility], CR, XR LUMBAR SPINE 2-3V, 07/31/2019, 8:49. [facility], CR, XR LUMBAR SPINE 2-3V, 09/07/2018, 16:39. FINDINGS: Bones: 5 lumbar type vertebral bodies are identified. For counting purposes, the last well formed disc is presumed to represent L5-S1. There continues to be moderate sized compression deformity involving the L2 vertebral body with approximately 50% anterior vertebral height loss. A T12 compression deformity is identified with approximately 40% anterior vertebral height loss, which is more prominent on the current study compared to the examination from 07/31/19. Otherwise, the remainder of the vertebral body heights are well-maintained. No displaced fractures or dislocations are identified. Moderate to severe multilevel degenerative changes of the lumbar spine are similar to the previous study. Soft tissues: Overlying bowel gas pattern is normal. There is aortic atherosclerosis. There may be calcifications involving the spleen. An inferior left renal calculus appears to be present. No suspicious soft tissue calcifications. IMPRESSION: 1. Chronic T12 and L2 compression deformities with interval increase in degree of compression at T12. A superimposed acute process should be excluded clinically. 2. 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 3. Nonobstructing inferior left renal calculus is suspected. Dictated by: Yaw Levi M.D. on 08/14/2019 at 15:32 Approved by: Yaw Levi M.D. on 08/14/2019 at 14:35
--- NOTE | 2019-08-14 14:28 | DI.CT.S_ITS ---
PROCEDURE: CT HEAD/BRAIN WO CON INDICATIONS: ground level fall TECHNIQUE: Noncontrast 4.5 mm thick angled axial sections acquired from the foramen magnum to the vertex, with coronal and sagittal reformats. For radiation dose reduction, the following was used: automated exposure control, adjustment of mA and/or kV according to patient size. COMPARISON: [facility], CT, CT FACIAL BONES WO CON, 08/14/2019, 14:35. [facility], MR, BRAIN WITHOUT CONTRAST, 09/12/2016, 15:22. FINDINGS: Image quality: Diagnostic. CSF spaces: Basal cisterns are patent. No extra-axial fluid collections. Ventricles are mildly prominent with corresponding parenchymal volume loss. Brain: No midline shift. No intracranial masses or hemorrhage. Shine-white matter interface is normal. Subtle areas of low attenuation are seen within the periventricular white matter of the supratentorial brain. Skull and face: Calvarium and visualized facial bones are intact, without suspicious lesions. Sinuses: Visualized sinuses and mastoids are clear. IMPRESSION: 1. No acute intracranial hemorrhage. 2. Moderate chronic small vessel ischemic changes and parenchymal volume loss. Dictated by: Yaw Levi M.D. on 08/14/2019 at 15:15 Approved by: Yaw Levi M.D. on 08/14/2019 at 15:18
--- NOTE | 2019-08-14 14:28 | DI.RAD.S_ITS ---
PROCEDURE: XR THORACIC SPINE 2V INDICATIONS: pain sp fall TECHNIQUE: 2 views of the thoracic spine were acquired. COMPARISON: [facility], CR, XR LUMBAR SPINE 2 OR 3 VIEWS, 04/08/2018, 16:18. [facility], CR, XR LUMBAR SPINE 2-3V, 08/14/2019, 14:52. [facility], CR, XR THORACOLUMBAR SPINE 2 VIEWS, 04/08/2018, 16:42. FINDINGS: Bones: The cervicothoracic junction is adequately visualized on the CT of the cervical spine from 08/14/19 in the alignment through this region is within normal limits. Anterior wedging involving the T12 vertebral body may be slightly more prominent on the current study when compared to the exam from 04/08/18, given differences in imaging technique. Otherwise, the remainder of the vertebral body heights throughout the thoracic spine are within normal limits. There is straightening of the normal thoracic kyphosis. Mild to moderate degenerative changes of the thoracic spine are present. Soft tissues: No paravertebral stripe thickening. IMPRESSION: 1. Chronic T12 compression deformity with mild interval increase in degree of compression. A superimposed acute process is difficult to exclude and clinical correlation is recommended. 2. No new compression fractures of the thoracic spine. Dictated by: Yaw Levi M.D. on 08/14/2019 at 15:29 Approved by: Yaw Levi M.D. on 08/14/2019 at 15:32
[2019-08-14 14:30] VITALS: BP 107/78; PULSE 95; O2SAT 94
--- NOTE | 2019-08-14 14:36 | ED.FALL ---
HPI - Fall <Deedee Jaime [employer]PERVISOR-BC - Last Filed: 08/14/19 20:10> General Chief Complaint: Fall Stated Complaint: fall/bruised face Time Seen by Provider: 08/14/19 14:19 Source: patient Mode of arrival: Wheelchair Limitations: no limitations History of Present Illness HPI Narrative: The patient is a 79-year-old male nonsmoker with history of diabetes who presents with a chief complaint of a fall on FridayAugust 11. states that he caught his cane and fell, hitting the right side of his face. She denies any loss of consciousness. He states he is not sure. states that the patient has a history of memory issues and dementia, which is longstanding but she wonders if it is worse since his fall. He complains of back pain, but notes that he has chronic back pain. states that he has a known compression fracture in his back. Patient states that he did not want to come to the emergency department is not sure why his brought him in today. He denies any visual deficits, nausea vomiting fever. He denies any pain other than chronic back pain. Related Data Home Medications Medication Instructions Recorded Confirmed ezetimibe [Zetia] 10 mg PO DAILY 12/29/18 12/29/18 glyburide 2.5 mg PO DAILY 12/29/18 12/29/18 insulin glargine [Lantus U-100 70 unit SUBCUT BID 12/29/18 12/29/18 Insulin] lidocaine [Lidoderm] 3 patch TOPICAL QDAYP 12/29/18 12/29/18 lisinopril 20 mg PO DAILY 12/29/18 12/29/18 metformin 500 mg PO BID 12/29/18 12/29/18 metoprolol tartrate 25 mg PO BID 12/29/18 12/29/18 zolpidem 5 mg PO BEDTIME 12/29/18 12/29/18 Previous Rx's Medication Instructions Recorded hydrocodone-acetaminophen 1 tab PO Q4-6H PRN #20 tab 07/31/19 ketorolac 10 mg PO Q6H PRN #14 tab 07/31/19 lidocaine [Lidoderm] 1 patch TOP DAILY #15 each 07/31/19 Allergies Allergy/AdvReac Type Severity Reaction Status Date / Time No Known Drug Allergies Allergy Verified 08/14/19 14:18 Review of Systems <Deedee JaimeANAHI-BC - Last Filed: 08/14/19 20:10> Review of Systems Narrative: GENERAL: Denies chills, fatigue, malaise, fever, sweats. HEENT: See HPI RESPIRATORY: Denies dyspnea, cough, wheezing, hemoptysis, sputum. CARDIOVASCULAR: Denies chest pain, palpitations, orthopnea, edema, GASTROINTESTINAL: Denies nausea, vomiting, abdominal pain, diarrhea, constipation, melena. : Denies dysuria, frequency, incontinence, hematuria, urinary retention. MUSCULOSKELETAL: See HPI SKIN: See HPI NEUROLOGIC: Denies weakness, headache, numbness, change in speech, confusion, seizures, incoordination. PSYCHIATRIC: No concerning psychosocial issues. 12 point review of systems is negative except for those stated above Exam <Deedee JaimeANAHI-BC - Last Filed: 08/14/19 20:10> Narrative Exam Narrative: GENERAL: Elderly chronically ill appearing male in no acute distress HEAD: Paranoid ecchymosis right side. Bruising over nasal bridge. Pain to palpation nasal bridge around right eye. No palpable deformities to scalp. EYES: Pupils equal round and reactive. Extraocular motions intact. No scleral icterus. No injection or drainage. ENT: Nose without bleeding, purulent drainage or septal hematoma. Throat without erythema, tonsillar hypertrophy or exudate. Uvula midline. Airway patent. NECK: Trachea midline. No JVD or lymphadenopathy. Supple, nontender, no meningeal signs. CARDIOVASCULAR: Regular rate and rhythm RESPIRATORY: Clear to auscultation. Breath sounds equal bilaterally. No wheezes, rales, or rhonchi. No increased respiratory effort. No accessory muscle use. No stridor. GASTROINTESTINAL: Abdomen soft, non-tender, nondistended. No hepato-splenomegaly, or palpable masses. No guarding. Active bowel sounds all 4 quadrants. EXTREMITIES: No clubbing, cyanosis, or edema. No joint tenderness, effusion, or edema noted. BACK: Diffuse pain to C-spine, high T-spine, low L-spine. No flank tenderness. NEURO: Alert. Oriented to place and name 's name. Disoriented to year. Strength is equal upper and lower extremities bilaterally. Stable gait. Clear speech. Symmetric smile. SKIN: Periorbital ecchymosis noted right eye. No overt lacerations over face. No Bonner signs. Initial Vital Signs Initial Vital Signs: Vital Signs Temperature 97.6 F 08/14/19 14:14 Pulse Rate 107 H 08/14/19 14:14 Respiratory Rate 15 08/14/19 14:14 Blood Pressure 129/76 08/14/19 14:14 Pulse Oximetry 94 08/14/19 14:14 <Delicia Dunn DO - Last Filed: 08/22/19 01:40> Initial Vital Signs Initial Vital Signs: Vital Signs Temperature 97.6 F 08/14/19 14:14 Pulse Rate 107 H 08/14/19 14:14 Respiratory Rate 15 08/14/19 14:14 Blood Pressure 129/76 08/14/19 14:14 Pulse Oximetry 94 08/14/19 14:14 Scores <BREE Nickerson - Last Filed: 08/14/19 20:10> GCS Redfield coma scale eye opening: Spontaneous Redfield coma scale verbal response: Orientated Redfield coma scale motor response: Obey commands Redfield coma scale total score: 15 Course <BREE Nickerson - Last Filed: 08/14/19 20:10> Orders Ordered: Discontinued Medications Magnesium Oxide (Mag Ox) 400 mg PO NOW ONE Stop: 08/14/19 16:12 Last Admin: 08/14/19 16:20 Dose: 400 mg Documented by: DAMARI Vital Signs Vital signs: Vital Signs - 8 hr 08/14/19 14:14 08/14/19 14:30 08/14/19 16:15 Temperature 97.6 F Pulse Rate 107 H 95 H 64 Respiratory Rate 15 16 Blood Pressure 129/76 Blood Pressure [Left Arm] 107/78 118/93 H Pulse Oximetry 94 94 100 <Delicia Dunn DO - Last Filed: 08/22/19 01:40> Orders Ordered: Discontinued Medications Magnesium Oxide (Mag Ox) 400 mg PO NOW ONE Stop: 08/14/19 16:12 Last Admin: 08/14/19 16:20 Dose: 400 mg Documented by: DAMARI Vital Signs Vital signs: Vital Signs - 8 hr 08/14/19 14:14 08/14/19 14:30 08/14/19 16:15 Temperature 97.6 F Pulse Rate 107 H 95 H 64 Respiratory Rate 15 16 Blood Pressure 129/76 Blood Pressure [Left Arm] 107/78 118/93 H Pulse Oximetry 94 94 100 MDM - Fall <Deedee Jaime, [employer] SUPERVISOR-BC - Last Filed: 08/14/19 20:10> Lab Data Result diagrams: 08/14/19 14:00 08/14/19 14:00 Labs: Lab Results 08/14/19 08/14/19 08/14/19 Range/Units 14:00 14:00 14:00 WBC 5.7 (4.5-11.0) X10^3/uL RBC 4.29 L (4.5-5.9) X10^6/uL Hgb 14.6 (13.5-17.5) g/dL Hct 42.8 (41-53) % MCV 99.7 (80-100) fL MCH 34.1 H (26-34) PG MCHC 34.2 (30-36) % RDW 16.2 H (11.6-14.8) % Plt Count 301 (150-400) X10^3/uL Neut % (Auto) 75.1 H (50-75) % Lymph % (Auto) 19.9 L (25-40) % Irwin % (Auto) 4.0 (3-14) % Eos % (Auto) 0.5 L (2-4) % Baso % (Auto) 0.5 (0-2) % Neut # (Auto) 4300 (3459-3171) /uL Lymph # (Auto) 1100 (1058-4813) /uL Irwin # (Auto) 200 (0-900) /uL Eos # (Auto) 0 (0-450) /uL Baso # (Auto) 0 (0-100) /uL Sodium 135 L (137-145) mmol/L Potassium 3.9 (3.4-5.1) mmol/L Chloride 95 L (98-107) mmol/L Carbon Dioxide 24 (22-32) mmol/L BUN 30 H (9-20) mg/dL Creatinine 0.90 (0.66-1.25) mg/dL Estimated GFR > 60.0 (>60) mL/min BUN/Creatinine Ratio 33.3 H (6-22) Glucose 380 H (80-110) mg/dL Calcium 9.5 (8.4-10.2) mg/dL Magnesium (1.6-2.3) mg/dL Total Bilirubin 0.8 (0.2-1.3) mg/dL AST 38 (17-59) IU/L ALT 35 (21-72) IU/L Alkaline Phosphatase 175 H (38-126) U/L Ammonia < 9.0 L (9-30) umol/L Total Protein 6.9 (6.3-8.2) g/dL Albumin 4.1 (3.5-5.0) g/dL Globulin 2.8 (1.7-4.1) g/dL Albumin/Globulin Ratio 1.5 (1.0-2.8) Lipase 222 (23-300) U/L Urine RBC (0-5/HPF) Urine WBC (0-5/HPF) Urine Bacteria (None) Hyaline Casts (None) Granular Casts (None) Urine Mucus (Negative) Ur Culture Indicated? 08/14/19 08/14/19 Range/Units 14:36 16:31 WBC (4.5-11.0) X10^3/uL RBC (4.5-5.9) X10^6/uL Hgb (13.5-17.5) g/dL Hct (41-53) % MCV (80-100) fL MCH (26-34) PG MCHC (30-36) % RDW (11.6-14.8) % Plt Count (150-400) X10^3/uL Neut % (Auto) (50-75) % Lymph % (Auto) (25-40) % Irwin % (Auto) (3-14) % Eos % (Auto) (2-4) % Baso % (Auto) (0-2) % Neut # (Auto) (9802-0326) /uL Lymph # (Auto) (1665-9664) /uL Irwin # (Auto) (0-900) /uL Eos # (Auto) (0-450) /uL Baso # (Auto) (0-100) /uL Sodium (137-145) mmol/L Potassium (3.4-5.1) mmol/L Chloride (98-107) mmol/L Carbon Dioxide (22-32) mmol/L BUN (9-20) mg/dL Creatinine (0.66-1.25) mg/dL Estimated GFR (>60) mL/min BUN/Creatinine Ratio (6-22) Glucose (80-110) mg/dL Calcium (8.4-10.2) mg/dL Magnesium 1.3 L (1.6-2.3) mg/dL Total Bilirubin (0.2-1.3) mg/dL AST (17-59) IU/L ALT (21-72) IU/L Alkaline Phosphatase (38-126) U/L Ammonia (9-30) umol/L Total Protein (6.3-8.2) g/dL Albumin (3.5-5.0) g/dL Globulin (1.7-4.1) g/dL Albumin/Globulin Ratio (1.0-2.8) Lipase (23-300) U/L Urine RBC 1-5/hpf (0-5/HPF) Urine WBC 1-5/hpf (0-5/HPF) Urine Bacteria None seen (None) Hyaline Casts 5-10/lpf (None) Granular Casts 0-1/lpf (None) Urine Mucus 1+ H (Negative) Ur Culture Indicated? Cult not indicated Urine Dip Bedside Urine Glucose 100 mg/dl Bedside Urine Bilirubin - Negative Bedside Urine Ketone - Negative Urine Specific [place] 1.020 Bedside Urine Occult Blood - Negative Bedside Urine pH 5.5 Bedside Urine Protein ++ 100 Bedside Urine Urobilinogen +/- 1mg Bedside Urine Nitrite - Negative Bedside Urine Leukocytes - Negative Esterase Imaging Data T-spine x-ray: Radiologist's impression: [address] [address] XRay Report Signed Patient: Mendy Quarles EMR#: [id number] : 1940Acct:[id number] Age/Sex: 79 / MDate of Service: 08/14/19 Loc: ED Accession Number: [id number] Procedure: XR thoracic spine 2V Ordering Provider: Deedee Jaime PROCEDURE: XR THORACIC SPINE 2V INDICATIONS: pain sp fall TECHNIQUE: 2 views of the thoracic spine were acquired. COMPARISON: [facility], CR, XR LUMBAR SPINE 2 OR 3 VIEWS, 04/08/2018, 16:18. [facility], CR, XR LUMBAR SPINE 2-3V, 08/14/2019, 14:52. [facility], CR, XR THORACOLUMBAR SPINE 2 VIEWS, 04/08/2018, 16:42. FINDINGS: Bones: The cervicothoracic junction is adequately visualized on the CT of the cervical spine from 08/14/19 in the alignment through this region is within normal limits. Anterior wedging involving the T12 vertebral body may be slightly more prominent on the current study when compared to the exam from 04/08/18, given differences in imaging technique. Otherwise, the remainder of the vertebral body heights throughout the thoracic spine are within normal limits. There is straightening of the normal thoracic kyphosis. Mild to moderate degenerative changes of the thoracic spine are present. Soft tissues: No paravertebral stripe thickening. IMPRESSION: 1. Chronic T12 compression deformity with mild interval increase in degree of compression. A superimposed acute process is difficult to exclude and clinical correlation is recommended. 2. No new compression fractures of the thoracic spine. Dictated by: Yaw Levi M.D. on 08/14/2019 at 15:29 Approved by: Yaw Levi M.D. on 08/14/2019 at 15:32 L-spine x-ray: Radiologist's impression: [address] [address] XRay Report Signed Patient: Mendy Quarles EMR#: [id number] : 1940Acct:[id number] Age/Sex: 79 / MDate of Service: 08/14/19 Loc: ED Accession Number: [id number] Procedure: XR lumbar spine 2-3V Ordering Provider: Deedee Jaime- PROCEDURE: XR LUMBAR SPINE 2-3V INDICATIONS: pain sp fall TECHNIQUE: 3 views of the lumbar spine were acquired. COMPARISON: [facility], CR, XR LUMBAR SPINE 2-3V, 07/31/2019, 8:49. [facility], CR, XR LUMBAR SPINE 2-3V, 09/07/2018, 16:39. FINDINGS: Bones: 5 lumbar type vertebral bodies are identified. For counting purposes, the last well formed disc is presumed to represent L5-S1. There continues to be moderate sized compression deformity involving the L2 vertebral body with approximately 50% anterior vertebral height loss. A T12 compression deformity is identified with approximately 40% anterior vertebral height loss, which is more prominent on the current study compared to the examination from 07/31/19. Otherwise, the remainder of the vertebral body heights are well-maintained. No displaced fractures or dislocations are identified. Moderate to severe multilevel degenerative changes of the lumbar spine are similar to the previous study. Soft tissues: Overlying bowel gas pattern is normal. There is aortic atherosclerosis. There may be calcifications involving the spleen. An inferior left renal calculus appears to be present. No suspicious soft tissue calcifications. IMPRESSION: 1. Chronic T12 and L2 compression deformities with interval increase in degree of compression at T12. A superimposed acute process should be excluded clinically. 2. 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 3. Nonobstructing inferior left renal calculus is suspected. Dictated by: Yaw Levi M.D. on 08/14/2019 at 15:32 Approved by: Yaw Levi M.D. on 08/14/2019 at 14:35 CT scan - head: Radiologist's impression: Mendy Quarles 79 M 1940 [place] [address] CT Scan Report Signed Patient: Mendy Quarles EMR#: [id number] : 1940Acct:[id number] Age/Sex: 79 / MDate of Service: 08/14/19 Loc: ED Accession Number: [id number] Procedure: CT head/brain wo con Ordering Provider: Deedee Jaime [facility] PROCEDURE: CT HEAD/BRAIN WO CON INDICATIONS: ground level fall TECHNIQUE: Noncontrast 4.5 mm thick angled axial sections acquired from the foramen magnum to the vertex, with coronal and sagittal reformats. For radiation dose reduction, the following was used: automated exposure control, adjustment of mA and/or kV according to patient size. COMPARISON: [facility], CT, CT FACIAL BONES WO CON, 08/14/2019, 14:35. [facility], MR, BRAIN WITHOUT CONTRAST, 09/12/2016, 15:22. FINDINGS: Image quality: Diagnostic. CSF spaces: Basal cisterns are patent. No extra-axial fluid collections. Ventricles are mildly prominent with corresponding parenchymal volume loss. Brain: No midline shift. No intracranial masses or hemorrhage. Shine-white matter interface is normal. Subtle areas of low attenuation are seen within the periventricular white matter of the supratentorial brain. Skull and face: Calvarium and visualized facial bones are intact, without suspicious lesions. Sinuses: Visualized sinuses and mastoids are clear. IMPRESSION: 1. No acute intracranial hemorrhage. 2. Moderate chronic small vessel ischemic changes and parenchymal volume loss. Dictated by: Yaw Levi M.D. on 08/14/2019 at 15:15 Approved by: Yaw Levi M.D. on 08/14/2019 at 15:[address]: Radiologist's impression: [address] [address] [address] Scan Report Signed Patient: Mendy Quarles EMR#: [id number] : 1940Acct:[id number] Age/Sex: 79 / MDate of Service: 08/14/19 Loc: ED Accession Number: [id number] Procedure: CT facial bones wo con Ordering Provider: Deedee Jaime-ZECHARIAH PROCEDURE: CT FACIAL BONES WO CON INDICATIONS: Ground-level fall, facial injury. TECHNIQUE: Noncontrast 2.5 mm thick axial images acquired from the mandible through the frontal sinuses, with coronal and sagittal reformatting. For radiation dose reduction, the following was used: automated exposure control, adjustment of mA and/or kV according to patient size. COMPARISON: None. FINDINGS: Image quality: Diagnostic. Bones and teeth: Orbital miller are intact. Sinus miller show no fracture or deformity. The bony nasal septum is deviated towards the patient's left. There may be very subtle impacted fracture involving the right nasal bone (image 79, series 2). Visualized portions of the mandible demonstrate no fractures or subluxation. Zygomatic arches are intact. Pterygoid plates are intact. Visualized portions of the skull base and auditory canals are intact. Severe degenerative changes are noted involving the left temporomandibular joint. Sinuses: Paranasal sinuses are aerated, without fluid levels, mucosal thickening, or mucoceles. Mastoid air cells are aerated. Soft tissues: No edema, masses, or fluid collections. No enlarged lymph nodes. No soft tissue lacerations or debris. Extensive carotid artery atherosclerosis is evident at the level of the bilateral carotid bulbs. Parenchyma atrophy and areas of chronic small vessel ischemic change are present within the imaged portions of the brain. Please see the dictated CT of the brain for complete details from 08/14/19. IMPRESSION: 1. Probable minimally impacted right nasal bone fracture. Clinical correlation is recommended. 2. No fractures of the orbits or maxilla are evident. Dictated by: Yaw Levi M.D. on 08/14/2019 at 15:18 Approved by: Yaw Levi M.D. on 08/14/2019 at 15:22 CT C-spine: Radiologist's impression: [address] [address] [address] Scan Report Signed Patient: Mendy Quarles EMR#: [id number] : 1940Acct:[id number] Age/Sex: 79 / MDate of Service: 08/14/19 Loc: ED Accession Number: [id number] Procedure: CT cervical spine wo con Ordering Provider: Deedee Jaime PROCEDURE: CT CERVICAL SPINE WO CON INDICATIONS: pain sp fall TECHNIQUE: Noncontrast 3 mm thick sections acquired from the skull base to the T4 level. Sagittal and coronal reformats were then constructed. For radiation dose reduction, the following was used: automated exposure control, adjustment of mA and/or kV according to patient size. COMPARISON: None. FINDINGS: Image quality: Diagnostic. Bones: The cervical thoracic, craniocervical, and atlantoaxial junctions are well-maintained. There is straightening of the normal cervical lordosis with grade 1 anterolisthesis of C4 on C5. The vertebral body heights are well-maintained throughout the cervical spine. There is no acute fracture or dislocation. No suspicious osseous lesions are identified. Moderate multilevel degenerative changes of the cervical spine are present demonstrated multilevel moderate areas of disc height loss, disc osteophyte formation, and facet arthrosis. Soft tissues: Prevertebral soft tissues are normal in thickness. No paravertebral hematomas. No apical pneumothoraces. Carotid artery atherosclerosis is present. Aortic atherosclerosis is also noted. IMPRESSION: 1. No acute fracture of the cervical spine. 2. Moderate multilevel degenerative changes of the cervical spine. 3. Straightening of the normal cervical lordosis may be related to muscle spasm. Degenerative change may also result in this appearance. Dictated by: Yaw Levi M.D. on 08/14/2019 at 15:22 Approved by: Yaw Levi M.D. on 08/14/2019 at 15:29 [facility] Narrative Medical decision making narrative: The patient is a 79-year-old male who presents several days after ground level fall. He does have a history of dementia according to his , so it is difficult to rule out a C C-spine injury. Given his mental state, pain to palpation of his neck and face, I did obtain images on the patient. These came back with a compression fracture at T12, which is slightly worsened compared to last exam. He however he has no pain to palpation of that area, so I do not believe that the worsening is acute. He is no loss of bowel or bladder, no complaints of numbness. I discussed at length that he is to follow up with these occur. The patient's magnesium was slightly low, so I did give him a dose in the emergency department. He ambulated steadily around the emergency department with a walker and passed a ambulation trial with nursing. I encouraged patient to come back to the emergency department immediately if he falls again, rather than waiting several days. The patient could be exhibiting concussion symptoms, so I did give them these discharge instructions. I discussed at length the importance of follow-up. stated comfort in going home, states she feels comfortable taking him home. His urine has no signs of infections. I discussed at length coming back to the emergency department for any acute concerns as well as follow-up with PCP. No questions or concerns upon discharge. <Delicia Dunn, - Last Filed: 08/22/19 01:40> Lab Data Labs: Lab Results 08/14/19 08/14/19 08/14/19 Range/Units 14:00 14:00 14:00 WBC 5.7 (4.5-11.0) X10^3/uL RBC 4.29 L (4.5-5.9) X10^6/uL Hgb 14.6 (13.5-17.5) g/dL Hct 42.8 (41-53) % MCV 99.7 (80-100) fL MCH 34.1 H (26-34) PG MCHC 34.2 (30-36) % RDW 16.2 H (11.6-14.8) % Plt Count 301 (150-400) X10^3/uL Neut % (Auto) 75.1 H (50-75) % Lymph % (Auto) 19.9 L (25-40) % Irwin % (Auto) 4.0 (3-14) % Eos % (Auto) 0.5 L (2-4) % Baso % (Auto) 0.5 (0-2) % Neut # (Auto) 4300 (5399-0499) /uL Lymph # (Auto) 1100 (2215-7462) /uL Irwin # (Auto) 200 (0-900) /uL Eos # (Auto) 0 (0-450) /uL Baso # (Auto) 0 (0-100) /uL Sodium 135 L (137-145) mmol/L Potassium 3.9 (3.4-5.1) mmol/L Chloride 95 L (98-107) mmol/L Carbon Dioxide 24 (22-32) mmol/L BUN 30 H (9-20) mg/dL Creatinine 0.90 (0.66-1.25) mg/dL Estimated GFR > 60.0 (>60) mL/min BUN/Creatinine Ratio 33.3 H (6-22) Glucose 380 H (80-110) mg/dL Calcium 9.5 (8.4-10.2) mg/dL Magnesium (1.6-2.3) mg/dL Total Bilirubin 0.8 (0.2-1.3) mg/dL AST 38 (17-59) IU/L ALT 35 (21-72) IU/L Alkaline Phosphatase 175 H (38-126) U/L Ammonia < 9.0 L (9-30) umol/L Total Protein 6.9 (6.3-8.2) g/dL Albumin 4.1 (3.5-5.0) g/dL Globulin 2.8 (1.7-4.1) g/dL Albumin/Globulin Ratio 1.5 (1.0-2.8) Lipase 222 (23-300) U/L Urine RBC (0-5/HPF) Urine WBC (0-5/HPF) Urine Bacteria (None) Hyaline Casts (None) Granular Casts (None) Urine Mucus (Negative) Ur Culture Indicated? 08/14/19 08/14/19 Range/Units 14:36 16:31 WBC (4.5-11.0) X10^3/uL RBC (4.5-5.9) X10^6/uL Hgb (13.5-17.5) g/dL Hct (41-53) % MCV (80-100) fL MCH (26-34) PG MCHC (30-36) % RDW (11.6-14.8) % Plt Count (150-400) X10^3/uL Neut % (Auto) (50-75) % Lymph % (Auto) (25-40) % Irwin % (Auto) (3-14) % Eos % (Auto) (2-4) % Baso % (Auto) (0-2) % Neut # (Auto) (1507-0830) /uL Lymph # (Auto) (6498-5453) /uL Irwin # (Auto) (0-900) /uL Eos # (Auto) (0-450) /uL Baso # (Auto) (0-100) /uL Sodium (137-145) mmol/L Potassium (3.4-5.1) mmol/L Chloride (98-107) mmol/L Carbon Dioxide (22-32) mmol/L BUN (9-20) mg/dL Creatinine (0.66-1.25) mg/dL Estimated GFR (>60) mL/min BUN/Creatinine Ratio (6-22) Glucose (80-110) mg/dL Calcium (8.4-10.2) mg/dL Magnesium 1.3 L (1.6-2.3) mg/dL Total Bilirubin (0.2-1.3) mg/dL AST (17-59) IU/L ALT (21-72) IU/L Alkaline Phosphatase (38-126) U/L Ammonia (9-30) umol/L Total Protein (6.3-8.2) g/dL Albumin (3.5-5.0) g/dL Globulin (1.7-4.1) g/dL Albumin/Globulin Ratio (1.0-2.8) Lipase (23-300) U/L Urine RBC 1-5/hpf (0-5/HPF) Urine WBC 1-5/hpf (0-5/HPF) Urine Bacteria None seen (None) Hyaline Casts 5-10/lpf (None) Granular Casts 0-1/lpf (None) Urine Mucus 1+ H (Negative) Ur Culture Indicated? Cult not indicated Urine Dip Bedside Urine Glucose 100 mg/dl Bedside Urine Bilirubin - Negative Bedside Urine Ketone - Negative Urine Specific [place] 1.020 Bedside Urine Occult Blood - Negative Bedside Urine pH 5.5 Bedside Urine Protein ++ 100 Bedside Urine Urobilinogen +/- 1mg Bedside Urine Nitrite - Negative Bedside Urine Leukocytes - Negative Esterase Discharge Plan Departure Patient Disposition: Home Clinical Impression: Fall from ground level Fracture of nasal bone Qualifiers: Encounter type: initial encounter Fracture type: closed Qualified Code(s): S02.2XXA - Fracture of nasal bones, initial encounter for closed fracture Back pain Qualifiers: Back pain location: low back pain Chronicity: chronic Back pain laterality: bilateral Sciatica presence: without sciatica Qualified Code(s): M54.5 - Low back pain Closed T12 fracture Qualifiers: Encounter type: initial encounter Fracture morphology: wedge compression Qualified Code(s): S22.080A - Wedge compression fracture of T11-T12 vertebra, initial encounter for closed fracture Discharge Date/Time: 08/14/19 17:30 Instructions: How to Choose and Use a Walker, DI for Nose Fracture, DI for Low Back Pain, DI for Contusion, How to Prevent Falls, DI for Thoracic Back Pain Activity Restrictions/Additional Instructions: Please follow up with primary care provider in the next few days. Today we scanned her face, neck and head. We found a broken nose. We did lab work, which came back mostly normal. Her magnesium was slightly low, and we have replaced in the emergency department. Your urine is not infected at this point. We did x-rays of her back, and found your chronic T12 fracture. I have given you discharge instructions regarding concussion. This will you know what to watch out for. Please come back to the emergency department for any sudden neurological changes, continence of bowel or incontinence of bladder as well as numbness in her groin. Please come back for any acute concerns such as chest pain, shortness of breath etc Prescriptions: No Action hydrocodone-acetaminophen 5-325 mg tablet 1 tab PO Q4-6H PRN (Reason: pain) Qty: 20 RF: 0 ketorolac 10 mg tablet 10 mg PO Q6H PRN (Reason: pain) Qty: 14 RF: 0 lidocaine [Lidoderm] 5 % adhesive patch,medicated 1 patch TOP DAILY Qty: 15 RF: 0 lidocaine [Lidoderm] 1 EACH adhesive patch,medicated 3 patch Topical QDAYP RF: 0 metformin 500 mg Tablet 500 mg PO BID RF: 0 Lantus U-100 Insulin 100 unit/mL Solution 70 unit SUBCUT BID RF: 0 glyburide 2.5 mg Tablet 2.5 mg PO DAILY RF: 0 lisinopril 20 mg Tablet 20 mg PO DAILY RF: 0 zolpidem 5 mg Tablet 5 mg PO BEDTIME RF: 0 ezetimibe [Zetia] 10 mg Tablet 10 mg PO DAILY RF: 0 metoprolol tartrate 25 mg Tablet 25 mg PO BID RF: 0 Referrals: Berto Curran MD [Primary Care Provider] -
[2019-08-14 14:46] LABS: Ammonia (NH3) < 9.0 umol/L (9-30)
[2019-08-14 14:46] LABS: Magnesium 1.3 mg/dL (1.6-2.3)
[2019-08-14 14:47] LABS: Alanine Aminotransferase 35 IU/L (21-72); Albumin 4.1 g/dL (3.5-5.0); Albumin Globulin Ratio 1.5 (1.0-2.8); Alkaline Phosphatase 175 U/L (38-126); Aspartate Aminotransferase 38 IU/L (17-59); BUN Creatinine Ratio 33.3 (6-22); Bilirubin Total 0.8 mg/dL (0.2-1.3); Blood Urea Nitrogen 30 mg/dL (9-20); Calcium 9.5 mg/dL (8.4-10.2); Carbon Dioxide 24 mmol/L (22-32); Chloride 95 mmol/L (98-107); Estimated Glomerular Filt Rate > 60.0 mL/min (>60); Globulin 2.8 g/dL (1.7-4.1); Glucose 380 mg/dL (80-110); HEMOLYSIS 16 (0-50); Lipase 222 U/L (23-300); Potassium 3.9 mmol/L (3.4-5.1); Sodium 135 mmol/L (137-145); Total Protein 6.9 g/dL (6.3-8.2)
[2019-08-14 14:58] LABS: Add Manual Diff / Slide Review NO; Basophils Absolute Auto 0 /uL (0-100); Basophils Percent Auto 0.5 % (0-2); Eosinophils Absolute Auto 0 /uL (0-450); Eosinophils Percent Auto 0.5 % (2-4); Hematocrit 42.8 % (41-53); Hemoglobin 14.6 g/dL (13.5-17.5); Lymphocytes Absolute Auto 1100 /uL (1100-4500); Lymphocytes Percent Auto 19.9 % (25-40); Mean Corpuscular HGB Conc 34.2 % (30-36); Mean Corpuscular Hemoglobin 34.1 PG (26-34); Mean Corpuscular Volume 99.7 fL (80-100); Monocytes Absolute Auto 200 /uL (0-900); Neutrophils Absolute Auto 4300 /uL (1500-7000); Neutrophils Percent Auto 75.1 % (50-75); Platelet Count 301 X10^3/uL (150-400); Red Blood Cell Count 4.29 X10^6/uL (4.5-5.9); Red Cell Distribution Width 16.2 % (11.6-14.8); White Blood Cell Count 5.7 X10^3/uL (4.5-11.0)
--- NOTE | 2019-08-14 15:02 | PC.NURSE ---
Pt arrived with . awake and alert. confused at times. quiet. reports pt fell 3 days ago and noted injury to face--abrasions for nose and forehead and bruised R eye appearing to heal. placed in [facility]. poor historian, denies blood thinners. reports he has falled 3 times in 3 years and has become less steady on feet and inquiring MD about a walker. pt able to transfer from to bed with assistance. VSS. IV placed and labs sent and CT head obtained.
--- NOTE | 2019-08-14 15:48 | PC.NURSE ---
C-spine cleared by MARCIO Jaime
--- NOTE | 2019-08-14 16:11 | PC.NURSE ---
pt passed ambulation trial using walker
[2019-08-14 16:15] VITALS: BP 118/93; PULSE 64; RESP 16; O2SAT 100
[2019-08-14] MEDS: MAGNESIUM OXIDE 400 MG TABLET PO (16:20)
[2019-08-14 16:32] LABS: Bacteria Urine None Seen
[2019-08-14 17:09] LABS: RBC Urine 1-5/HPF (0-5/HPF); WBC Urine 1-5/HPF (0-5/HPF)
[2019-08-14 17:11] LABS: Culture Indicated Urine Cult Not Indicated; Granular Casts Urine 0-1/LPF; Hyaline Casts Urine 5-10/LPF; Mucus Urine 1+ (Negative)
== END 2019-08-14 17:30 | disposition home or self-care (01) ==
PROVIDERS: Emergency Provider Nurse Practitioner Family; PCP Family Medicine
DX: S02.2XXA Fracture of nasal bones, initial encounter for closed fracture (principal); M54.5 Low back pain; S22.080A Wedge compression fracture of T11-T12 vertebra, initial encounter for closed fracture; E11.9 Type 2 diabetes mellitus without complications; W18.30XA Fall on same level, unspecified, initial encounter
CPT/HCPCS: 36415; 70450; 70486; 72070; 72100; 72125; 80053; 81003; 81015; 82140; 83690; 83735; 85025; 99283; 99284

== ENCOUNTER 2019-08-22 10:09 | Observation (INO) | payer MEDICARE, OTHER, SELFPAY ==
[2019-08-22] VITALS (11 sets, daily range): BP systolic 79–123; BP diastolic 50–92; PULSE 86–122; RESP 18–36; TEMP 36.1–36.7; O2SAT 93–99; BMI 27.2
--- NOTE | 2019-08-22 10:18 | DI.RAD.S_ITS ---
PROCEDURE: XR CHEST 2V INDICATIONS: shortness of breath TECHNIQUE: 2 views of the chest were acquired. COMPARISON: [facility], , CHEST 2 VIEW, 01/23/2011, 8:43. [facility], , XR LUMBAR SPINE 2-3V, 08/14/2019, 14:52. [facility], , XR THORACIC SPINE 2V, 08/14/2019, 14:41. [facility], , CHEST 2 VIEW, 02/25/2012, 8:59. FINDINGS: Surgical changes and devices: None. Lungs and pleura: An incomplete inspiratory result is noted, causing a crowded appearance to the lung markings. Mild, streaky opacities are seen at the lung bases. No pneumothorax or significant pleural effusions are seen. Mediastinum: The cardiac contours are within normal limits. The aorta demonstrates calcification and tortuosity. Bones and chest wall: Age-appropriate bony degenerative changes are seen. No suspicious bony abnormalities. Soft tissues appear unremarkable. IMPRESSION: Low lung volumes, with likely atelectasis at the lung bases. Dictated by: George Barajas M.D. on 08/22/2019 at 9:41 Approved by: George Barajas M.D. on 08/22/2019 at 9:42
[2019-08-22 10:28] LABS: Hematocrit 44.3 % (41-53); Hemoglobin 14.9 g/dL (13.5-17.5); Mean Corpuscular HGB Conc 33.6 % (30-36); Mean Corpuscular Hemoglobin 33.8 PG (26-34); Mean Corpuscular Volume 100.6 fL (80-100); Platelet Count 314 X10^3/uL (150-400); Red Cell Distribution Width 15.9 % (11.6-14.8); White Blood Cell Count 5.2 X10^3/uL (4.5-11.0)
[2019-08-22 10:30] LABS: Add Manual Diff / Slide Review YES
[2019-08-22 10:34] LABS: Alanine Aminotransferase 41 IU/L (21-72); Albumin 4.3 g/dL (3.5-5.0); Albumin Globulin Ratio 1.5 (1.0-2.8); Alkaline Phosphatase 126 U/L (38-126); Aspartate Aminotransferase 31 IU/L (17-59); Bilirubin Total 0.6 mg/dL (0.2-1.3); Blood Urea Nitrogen 24 mg/dL (9-20); Calcium 9.5 mg/dL (8.4-10.2); Carbon Dioxide 23 mmol/L (22-32); Chloride 98 mmol/L (98-107); Estimated Glomerular Filt Rate > 60.0 mL/min (>60); Globulin 2.8 g/dL (1.7-4.1); Glucose 138 mg/dL (80-110); HEMOLYSIS < 15 (0-50); Potassium 3.6 mmol/L (3.4-5.1); Sodium 137 mmol/L (137-145); Total Protein 7.1 g/dL (6.3-8.2)
[2019-08-22 10:39] LABS: Lactate (Lactic Acid) 2.9 mmol/L (0.7-2.1)
--- NOTE | 2019-08-22 10:40 | ED.WEAKNESS ---
HPI - Weakness General Chief complaint: Weakness Time Seen by Provider: 08/22/19 10:21 Source: patient and EMS Mode of arrival: EMS Limitations: no limitations History of Present Illness HPI Narrative: 79-year-old male with reported history of some dementia. Also has a history of hypertension. Was seen here within the past week for a mechanical fall. Has known compression fractures in his back. Was brought in by EMS. Initially difficult to obtain history. Patient was oriented to place and time but stated he does not know why he was brought to the emergency department. EMS reports that they were called with the patient's for weakness and shortness of breath. Patient declined any chest pain or problems breathing. Patient's eventually arrived to the emergency department approximately 1.5-2 hours after the patient arrived. She stated that yesterday patient was at his baseline state health. She stated that he did spend most of his time sitting down yesterday. She states he walked up a flight of stairs yesterday without any problems. She stated that this morning the patient woke to go to the restroom. states that she heard him in the bathroom calling her name. She walked in. There was no signs of trauma. Does not appear that the patient fell. He was complaining of being very short of breath and seemed to be weak in his knees. This is why she called 911. Related Data Home Medications Medication Instructions Recorded Confirmed ezetimibe [Zetia] 10 mg PO DAILY 12/29/18 08/22/19 insulin glargine [Lantus U-100 70 unit SUBCUT BID 12/29/18 08/22/19 Insulin] lisinopril 40 mg PO DAILY 12/29/18 08/22/19 metformin 1,000 mg PO BID 12/29/18 08/22/19 metoprolol tartrate 100 mg PO BID 12/29/18 08/22/19 amlodipine 10 mg PO DAILY 08/22/19 08/22/19 gemfibrozil 600 mg PO BID 08/22/19 08/22/19 glipizide 5 mg PO BID 08/22/19 08/22/19 hydrochlorothiazide 25 mg PO 1700 08/22/19 08/22/19 ibuprofen 400 mg PO Q6H PRN 08/22/19 08/22/19 Previous Rx's Medication Instructions Recorded hydrocodone-acetaminophen 1 tab PO Q4-6H PRN #20 tab 07/31/19 lidocaine [Lidoderm] 1 patch TOP DAILY #15 each 07/31/19 Allergies Allergy/AdvReac Type Severity Reaction Status Date / Time No Known Drug Allergies Allergy Verified 08/22/19 10:15 Review of Systems Constitutional Constitutional: Denies fever(s) Cardiovascular Cardiovascular: Denies chest pain and Denies dyspnea Respiratory Respiratory: Denies dyspnea Musculoskeletal Comments: Lower extremity weakness Integumentary/Breasts Skin/Breast: Denies lesions and Denies rash Neurologic Neurologic: Denies behavioral changes Comments: Baseline mental status per Psychiatric Psychiatric: Denies behavioral changes Hematologic/Lymphatic Hematologic/Lymphatic: Denies easy bleeding and Denies easy bruising Patient History Medical/Surgical History Medical History Hyperlipidemia (Acute) Hypertension (Acute) Social History household members: spouse Smoking Status: Never smoker alcohol intake: never Family/Social History Social History household members: spouse Smoking Status: Never smoker alcohol intake: never Substance Use Type: does not use Exam Initial Vital Signs Initial Vital Signs: Vital Signs Temperature 97.8 F 08/22/19 10:15 Pulse Rate 86 08/22/19 10:15 Respiratory Rate 26 H 08/22/19 10:15 Blood Pressure 123/92 H 08/22/19 10:15 Pulse Oximetry 97 08/22/19 10:15 Course Orders Ordered: ED Orders 08/22/19 10:15 B Type Natriuretic Peptide Stat Complete Blood Count AUTO DIFF Stat Comprehensive Metabolic Panel Stat Lactate (Lactic Acid) Stat Partial Thromboplastin Time Stat Procalcitonin Stat Prothrombin Time INR Stat Troponin I Stat 08/22/19 10:18 XR chest 2V Stat EKG-12 Lead Stat 08/22/19 11:23 Consult to Physical Therapy Evaluate & Treat 08/22/19 12:53 CT angio chest PE protocol Stat 08/22/19 14:54 Consult to Physician Routine 08/22/19 14:55 RT Consult Eval and Treat Now 08/22/19 15:05 Urine Microscopic Stat Sodium Chloride (Normal Saline 0.9%) 1,000 mls @ 125 mls/hr IV CONT DEEPTHI Last Infusion: 08/22/19 16:49 Dose: 125 mls/hr Documented by: Infusion: 08/22/19 15:50 Dose: 0 mls/hr Documented by: Admin: 08/22/19 14:58 Dose: 125 mls/hr Documented by: BLANCA Influenza Virus Vaccine (Flu Vaccine) 0.5 ml IM .ONCE ONE Stop: 08/23/19 09:01 Vital Signs Vital signs: Vital Signs - 8 hr 08/22/19 11:20 08/22/19 12:14 08/22/19 12:30 Pulse Rate 92 H 97 H 122 H Respiratory Rate 36 H Blood Pressure [Left Arm] 118/75 102/81 79/50 L Pulse Oximetry 94 99 08/22/19 12:40 08/22/19 13:19 08/22/19 14:30 Pulse Rate 101 H 101 H 99 H Respiratory Rate 18 22 18 Blood Pressure [Left Arm] 94/60 90/71 101/77 Pulse Oximetry 99 97 96 08/22/19 15:00 Pulse Rate 103 H Respiratory Rate 24 Blood Pressure [Left Arm] 106/65 Pulse Oximetry 94 MDM - Weakness Lab Data Attestation: I reviewed the patient's lab results. Result diagrams: 08/22/19 10:15 08/22/19 10:15 Labs: Lab Results 08/22/19 08/22/19 08/22/19 Range/Units 10:15 10:15 10:15 WBC 5.2 (4.5-11.0) X10^3/uL RBC 4.40 L (4.5-5.9) X10^6/uL Hgb 14.9 (13.5-17.5) g/dL Hct 44.3 (41-53) % MCV 100.6 H (80-100) fL MCH 33.8 (26-34) PG MCHC 33.6 (30-36) % RDW 15.9 H (11.6-14.8) % Plt Count 314 (150-400) X10^3/uL Neut % (Auto) Not Reportable Lymph % (Auto) Not Reportable [place] % (Auto) Not Reportable Eos % (Auto) Not Reportable Baso % (Auto) Not Reportable Lymph # (Auto) Not Reportable [place] # (Auto) Not Reportable Baso # (Auto) Not Reportable Total Counted 100 Seg Neutrophils % 49.0 (38-70) % Lymphocytes % (Manual) 42.0 (25-45) % Monocytes % (Manual) 7.0 (2-11) % Eosinophils % (Manual) 2.0 (2-4) % Neutrophils # (Manual) 2548 L (8922-3471) /uL RBC Morphology Not Reportable Anisocytosis 1+ H Macrocytosis 1+ H PT (10.1-12.7) SECONDS INR (0.9-1.3) APTT (26.4-36.2) SECONDS Sodium 137 (137-145) mmol/L Potassium 3.6 (3.4-5.1) mmol/L Chloride 98 (98-107) mmol/L Carbon Dioxide 23 (22-32) mmol/L BUN 24 H (9-20) mg/dL Creatinine 1.00 (0.66-1.25) mg/dL Estimated GFR > 60.0 (>60) mL/min BUN/Creatinine Ratio 24.0 H (6-22) Glucose 138 H D (80-110) mg/dL Lactate 2.9 H (0.7-2.1) mmol/L Calcium 9.5 (8.4-10.2) mg/dL Total Bilirubin 0.6 (0.2-1.3) mg/dL AST 31 (17-59) IU/L ALT 41 (21-72) IU/L Alkaline Phosphatase 126 (38-126) U/L Troponin I (0.01-0.034) ng/mL B-Natriuretic Peptide (<100) Total Protein 7.1 (6.3-8.2) g/dL Albumin 4.3 (3.5-5.0) g/dL Globulin 2.8 (1.7-4.1) g/dL Albumin/Globulin Ratio 1.5 (1.0-2.8) Procalcitonin (<0.5) ng/mL Urine RBC (0-5/HPF) Urine WBC (0-5/HPF) Urine Bacteria (None) Urine Mucus (Negative) Ur Culture Indicated? 08/22/19 08/22/19 08/22/19 Range/Units 10:15 10:15 10:15 WBC (4.5-11.0) X10^3/uL RBC (4.5-5.9) X10^6/uL Hgb (13.5-17.5) g/dL Hct (41-53) % MCV (80-100) fL MCH (26-34) PG MCHC (30-36) % RDW (11.6-14.8) % Plt Count (150-400) X10^3/uL Neut % (Auto) Lymph % (Auto) [place] % (Auto) Eos % (Auto) Baso % (Auto) Lymph # (Auto) [place] # (Auto) Baso # (Auto) Total Counted Seg Neutrophils % (38-70) % Lymphocytes % (Manual) (25-45) % Monocytes % (Manual) (2-11) % Eosinophils % (Manual) (2-4) % Neutrophils # (Manual) (9262-6160) /uL RBC Morphology Anisocytosis Macrocytosis PT 11.0 (10.1-12.7) SECONDS INR 1.0 (0.9-1.3) APTT 38 H (26.4-36.2) SECONDS Sodium (137-145) mmol/L Potassium (3.4-5.1) mmol/L Chloride (98-107) mmol/L Carbon Dioxide (22-32) mmol/L BUN (9-20) mg/dL Creatinine (0.66-1.25) mg/dL Estimated GFR (>60) mL/min BUN/Creatinine Ratio (6-22) Glucose (80-110) mg/dL Lactate (0.7-2.1) mmol/L Calcium (8.4-10.2) mg/dL Total Bilirubin (0.2-1.3) mg/dL AST (17-59) IU/L ALT (21-72) IU/L Alkaline Phosphatase (38-126) U/L Troponin I < 0.012 (0.01-0.034) ng/mL B-Natriuretic Peptide < 100 (<100) Total Protein (6.3-8.2) g/dL Albumin (3.5-5.0) g/dL Globulin (1.7-4.1) g/dL Albumin/Globulin Ratio (1.0-2.8) Procalcitonin (<0.5) ng/mL Urine RBC (0-5/HPF) Urine WBC (0-5/HPF) Urine Bacteria (None) Urine Mucus (Negative) Ur Culture Indicated? 08/22/19 08/22/19 08/22/19 Range/Units 10:15 12:35 15:05 WBC (4.5-11.0) X10^3/uL RBC (4.5-5.9) X10^6/uL Hgb (13.5-17.5) g/dL Hct (41-53) % MCV (80-100) fL MCH (26-34) PG MCHC (30-36) % RDW (11.6-14.8) % Plt Count (150-400) X10^3/uL Neut % (Auto) Lymph % (Auto) [place] % (Auto) Eos % (Auto) Baso % (Auto) Lymph # (Auto) [place] # (Auto) Baso # (Auto) Total Counted Seg Neutrophils % (38-70) % Lymphocytes % (Manual) (25-45) % Monocytes % (Manual) (2-11) % Eosinophils % (Manual) (2-4) % Neutrophils # (Manual) (9839-5026) /uL RBC Morphology Anisocytosis Macrocytosis PT (10.1-12.7) SECONDS INR (0.9-1.3) APTT (26.4-36.2) SECONDS Sodium (137-145) mmol/L Potassium (3.4-5.1) mmol/L Chloride (98-107) mmol/L Carbon Dioxide (22-32) mmol/L BUN (9-20) mg/dL Creatinine (0.66-1.25) mg/dL Estimated GFR (>60) mL/min BUN/Creatinine Ratio (6-22) Glucose (80-110) mg/dL Lactate 2.0 (0.7-2.1) mmol/L Calcium (8.4-10.2) mg/dL Total Bilirubin (0.2-1.3) mg/dL AST (17-59) IU/L ALT (21-72) IU/L Alkaline Phosphatase (38-126) U/L Troponin I (0.01-0.034) ng/mL B-Natriuretic Peptide (<100) Total Protein (6.3-8.2) g/dL Albumin (3.5-5.0) g/dL Globulin (1.7-4.1) g/dL Albumin/Globulin Ratio (1.0-2.8) Procalcitonin 0.11 (<0.5) ng/mL Urine RBC 0-1/hpf (0-5/HPF) Urine WBC 0-1/hpf (0-5/HPF) Urine Bacteria None seen (None) Urine Mucus 1+ H (Negative) Ur Culture Indicated? Cult not indicated Urine Dip Bedside Urine Glucose Negative Bedside Urine Bilirubin - Negative Bedside Urine Ketone - Negative Urine Specific [place] 1.010 Bedside Urine Occult Blood +/- Bedside Urine pH 5.0 Bedside Urine Protein +/- 15 Bedside Urine Urobilinogen - Negative Bedside Urine Nitrite - Negative Bedside Urine Leukocytes - Negative Esterase Imaging Data Chest x-ray: Radiologist's impression: [address] [address] XRay Report Signed Patient: Mendy Quarles EMR#: [id number] : 1940Acct:[id number] Age/Sex: 79 / MDate of Service: 08/22/19 Loc: ED Accession Number: [id number] Procedure: XR chest 2V Ordering Provider: Berto Cruz D.O. PROCEDURE: XR CHEST 2V INDICATIONS: shortness of breath TECHNIQUE: 2 views of the chest were acquired. COMPARISON: [facility], CHEST 2 VIEW, 01/23/2011, 8:43. [facility], XR LUMBAR SPINE 2-3V, 08/14/2019, 14:52. [facility], XR THORACIC SPINE 2V, 08/14/2019, 14:41. [facility], CHEST 2 VIEW, 02/25/2012, 8:59. FINDINGS: Surgical changes and devices: None. Lungs and pleura: An incomplete inspiratory result is noted, causing a crowded appearance to the lung markings. Mild, streaky opacities are seen at the lung bases. No pneumothorax or significant pleural effusions are seen. Mediastinum: The cardiac contours are within normal limits. The aorta demonstrates calcification and tortuosity. Bones and chest wall: Age-appropriate bony degenerative changes are seen. No suspicious bony abnormalities. Soft tissues appear unremarkable. IMPRESSION: Low lung volumes, with likely atelectasis at the lung bases. Dictated by: George Barajas M.D. on 08/22/2019 at 9:41 Approved by: George Barajas M.D. on 08/22/2019 at 9:42 CT scan - chest: Radiologist's impression: [address] [address] [address] Scan Report Signed Patient: Mendy Quarles EMR#: [id number] : 1940Acct:[id number] Age/Sex: 79 / MDate of Service: 08/22/19 Loc: ED Accession Number: [id number] Procedure: CT angio chest PE protocol Ordering Provider: Berto Cruz D.O. PROCEDURE: CT ANGIO CHEST PE PROTOCOL INDICATIONS: Chest pain, shortness of breath, tachycardia TECHNIQUE: After the administration of intravenous contrast, 2 mm thick sections acquired from the pulmonary apices to the posterior costophrenic angles. 3-dimensional maximum intensity projection (MIP) coronal and sagittal reformats were then acquired through the thorax. For radiation dose reduction, the following was used: automated exposure control, adjustment of mA and/or kV according to patient size. COMPARISON: None. FINDINGS: Image quality: Excellent. Pulmonary arteries: Pulmonary arteries are normal in size, and demonstrate no intraluminal filling defects to suggest central pulmonary embolism. Lungs and pleura: Mild dependent consolidations can be seen at both lung bases, right worse than left. No pleural effusions or pneumothorax. Central and peripheral airways are patent. Mediastinum: Heart size is normal, without pericardial effusion. No mediastinal or hilar adenopathy. Thoracic aorta is normal in caliber and enhancement. Esophagus is normal in caliber, without hiatal hernia. Bones and chest wall: No suspicious bony lesions. Ribs and thoracic spine appear intact throughout. Thyroid gland demonstrates no significant CT abnormality. No axillary or supraclavicular adenopathy. Abdomen: A gallstone can be seen within the gallbladder neck, as on series 4 image 141. Incidental note is made of an accessory spleen along the hilum of the primary spleen. Upper abdominal calcified lesions are seen adjacent to the proximal transverse colon, with the largest measuring 1.3 cm, as on series 4 image 147. The visualized portions of the upper abdominal structures are otherwise unremarkable for imaging technique. IMPRESSION: Negative for pulmonary embolism. Consolidative changes can be seen at both lung bases, right more prominent than left. This is felt most likely to be related to atelectasis, although differential diagnosis includes mild infiltrates. Focal calcified lesions are seen adjacent proximal transverse colon. These are most likely benign lesion. Please correlate with patient history. 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 on 08/22/2019 at 13:13 Approved by: George Barajas M.D. on 08/22/2019 at 13:16 ECG Data Attestation: I personally reviewed and interpreted this ECG as follows: Prior ECG tracings: not available for review Interpretation: Sinus rhythm Ventricular rate 85 Occasional PVC Normal QRS Nonspecific ST T wave changes MDM Narrative Medical decision making narrative: Patient seems to be at baseline mental status for the patient's who is at bedside. His chest x-ray is unremarkable. CT of the chest shows no signs of acute pathology. Nonspecific changes in the EKG. Patient is not having chest pain. His troponin is negative BNP is unremarkable. Patient was seen by physical therapy who stated that he was able to stand at bedside however he became very short of breath. He became hypotensive and tachycardic. There was 1 report that he was hypoxic during this time. Given his symptoms he did not take any steps with physical therapy. The physical therapist thought that he could potentially walk had he not become hypotensive and tachycardic and and short of breath that they did not feel like this was safe given his other symptoms. He has no signs of pneumonia will hold on any antibiotics. No signs of heart failure. No diagnosis of heart failure. Will hold on any diuresis. He did feel better when he was lying down with oxygen on. She has no signs of pulmonary embolism. I did discuss the case with Dr. Curran who is his primary doctor. Will admit for observation for continued evaluation and treatment. Discussed this with the patient and his were bedside. They both expressed understanding and agreement. Discharge Plan Departure Patient Disposition: Admitted as Observation Clinical Impression: WELLER (dyspnea on exertion), Tachycardia, Back Pain Hypotension Qualifiers: Hypotension type: unspecified hypotension type Qualified Code(s): I95.9 - Hypotension, unspecified Discharge Date/Time: 08/22/19 16:05 Admit Date/Time: 08/22/19 15:53 Admit Provider: Berto Curran
[2019-08-22 11:16] LABS: Neutrophils Absolute Manual 2548 /uL (3000-5900); Total Cells Counted 100
[2019-08-22 11:17] LABS: Anisocytosis 1+; Macrocytosis 1+
[2019-08-22 12:25] LABS: Reflexed Lactate in 2 Hours Y
--- NOTE | 2019-08-22 12:53 | DI.CT.S_ITS ---
PROCEDURE: CT ANGIO CHEST PE PROTOCOL INDICATIONS: Chest pain, shortness of breath, tachycardia TECHNIQUE: After the administration of intravenous contrast, 2 mm thick sections acquired from the pulmonary apices to the posterior costophrenic angles. 3-dimensional maximum intensity projection (MIP) coronal and sagittal reformats were then acquired through the thorax. For radiation dose reduction, the following was used: automated exposure control, adjustment of mA and/or kV according to patient size. COMPARISON: None. FINDINGS: Image quality: Excellent. Pulmonary arteries: Pulmonary arteries are normal in size, and demonstrate no intraluminal filling defects to suggest central pulmonary embolism. Lungs and pleura: Mild dependent consolidations can be seen at both lung bases, right worse than left. No pleural effusions or pneumothorax. Central and peripheral airways are patent. Mediastinum: Heart size is normal, without pericardial effusion. No mediastinal or hilar adenopathy. Thoracic aorta is normal in caliber and enhancement. Esophagus is normal in caliber, without hiatal hernia. Bones and chest wall: No suspicious bony lesions. Ribs and thoracic spine appear intact throughout. Thyroid gland demonstrates no significant CT abnormality. No axillary or supraclavicular adenopathy. Abdomen: A gallstone can be seen within the gallbladder neck, as on series 4 image 141. Incidental note is made of an accessory spleen along the hilum of the primary spleen. Upper abdominal calcified lesions are seen adjacent to the proximal transverse colon, with the largest measuring 1.3 cm, as on series 4 image 147. The visualized portions of the upper abdominal structures are otherwise unremarkable for imaging technique. IMPRESSION: Negative for pulmonary embolism. Consolidative changes can be seen at both lung bases, right more prominent than left. This is felt most likely to be related to atelectasis, although differential diagnosis includes mild infiltrates. Focal calcified lesions are seen adjacent proximal transverse colon. These are most likely benign lesion. Please correlate with patient history. 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 on 08/22/2019 at 13:13 Approved by: George Barajas M.D. on 08/22/2019 at 13:16
--- NOTE | 2019-08-22 12:56 | PC.NURSE ---
during PT, pt was sitting up, face is pale, difficulty with breathing. oxygen applied. Dr. Cruz aware. see vital signs at 1230
[2019-08-22 13:15] LABS: PTT Partial Thromboplastin Tim 38 SECONDS (26.4-36.2)
[2019-08-22 13:25] LABS: Troponin I < 0.012 ng/mL (0.01-0.034)
[2019-08-22 13:40] LABS: B Type Natriuretic Peptide < 100 (<100)
--- NOTE | 2019-08-22 14:04 | PT.IIE ---
Physical Therapy Inpatient Evaluation/Re-Eval M1 PT/OT-IP Prior Functional Status Start: 08/22/19 11:29 Freq: Status: Active Protocol: Document 08/22/19 12:54 AW (Rec: 08/22/19 14:03 AW [id number]) Medical Review Prior Functional Status Medical History Reviewed Yes Communication Able to make needs known. No known deficits Mobility and Gait Prior to a fall three weeks ago, pt and his spouse report he was independent with all mobilities, requiring no AD. He could walk a few miles with no need for assist. Pt has had 2 falls in the past three weeks. Since the first fall, he has been using two canes ( one hurry cane, one SPC) for ambulation. Activities of Daily Living and IADL's Independent with all ADL's Social History Household Members spouse Living Arrangements House Number of Floors (Floors) Two Floors Number of Stairs To Enter/Railing? 2 ZAK with no railing. Home Environment Standard Height Toilet,Walk in Shower Home Equipment Four Wheel Walker,Quad Cane, Straight Cane,Hand Held Shower Employment Status Retired Additional Social History Comment Pt lives with his spouse. Both are retired, spouse is able to assist as needed. Home has 2 stories with bedroom on second level. 11 stairs to second level with left rail ( ascending) M2 PT-IP Current Condition Start: 08/22/19 11:29 Freq: Status: Active Protocol: Document 08/22/19 12:54 AW (Rec: 08/22/19 14:03 AW [id number]) Physical Therapy Current Condition Current Condition Evaluation Date 08/22/19 Treatment Diagnosis respiratory distress, impaired transfers and gait Weight Bearing Status Weight Bearing Status Full Weight Bearing M3 PT-IP Subjective Start: 08/22/19 11:29 Freq: Status: Active Protocol: Document 08/22/19 12:54 AW (Rec: 08/22/19 14:03 AW [id number]) Subjective Physical Therapy Visit Type Type Initial Evaluation Visit Start Time 12:05 Visit Stop Time 12:45 Total Visit Minutes 40 Notes Pt's spouse present for entire evaluation Physical Therapy Visit Comments Patient Comments I have trouble breathing when I stand up. Patient Goals Pt hopes to return home with spouse support Therapy Pain Assessment Pain When Pain Assessed During Mobility Pain Present Pain Present Denied Pain M4 PT-IP Mobility and Gait Start: 08/22/19 11:29 Freq: Status: Active Protocol: Document 08/22/19 12:54 AW (Rec: 08/22/19 14:03 AW [id number]) PT-Bed Mobility Assessment Rolling Type of Rolling Roll to Right Level of Assist Independent Supine to Sit Supine to Sit Standby Assistance Sit to Supine Sit to Supine Contact Guard Assistance Scooting Scooting to Edge of Bed Standby Assistance Scooting Up and Down in Bed Independent PT-Transfer Assessment Sit to and From Stand Sit to and from Stand Contact Guard Assistance Equipment Transfer Assistive Device Gait Belt,Front Wheeled Walker Orthotic/Prosthetic Devices or Brace: No Comments Mobility Comments Pt unable to transfer. Once assisted to standing, respiratory rate increased and pt reported lightheadedness. BP in sitting was 102/81. BP upon immediate standing 99/82. Pt complained of increasing lightheadedness and became pale within one minute of standing. Upon return to sitting, BP was 79/50 which recovered to 94/60 after two minutes. HR kandy to 122 in standing. SpO2 remained constant with a range of 94-97 %. Pt was assisted back to supine on the gurney and left with nursing. Gait Assessment Comments Gait Comments Unable due to respiratory distress PT-Balance Assessment Sitting Balance and Reactions Static Sitting Balance Ability Good Dynamic Sitting Balance Ability Good Standing Balance and Reactions Static Standing Balance Ability Fair Dynamic Standing Balance Ability Fair Device Used FWW M5 PT-IP Objective Assessments Start: 08/22/19 11:29 Freq: Status: Active Protocol: Document 08/22/19 12:54 AW (Rec: 08/22/19 14:03 AW [id number]) Orientation Orientation/Cognition Level of Alertness Confusional State Orientation Name,Place Language Function Ability No Deficits Noted Safety Awareness Decreased Safety Awareness Memory Description Short Term Impaired,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 He was oriented to self and place but was unable to explain why he was in the ED or to identify the year, month . Gross Range of Motion Upper Extremity ROM Assessment Within Functional Limits Lower Extremity ROM Assessment Within Functional Limits Strength Upper Extremity Strength Assessment Within Functional Limits Lower Extremity Strength Assessment Left Impaired Comments Strength Comments RLE 5/5 LLE 4/5 Coordination Assessment Gross Coordination Gross Coordination WNL Sensation Assessment Sensation Gross Sensation WNL M6 PT-IP Treatment Start: 08/22/19 11:29 Freq: Status: Active Protocol: Document 08/22/19 12:54 AW (Rec: 08/22/19 14:03 AW [id number]) Physical Therapy Treatment Education Education Provided Safety Other Treatments Other Treatment Performed Provided education on breath awareness, breathing techniques, safe use of FWW. M7 PT-IP Assessment and Plan Start: 08/22/19 11:29 Freq: Status: Active Protocol: Document 08/22/19 12:54 AW (Rec: 08/22/19 14:03 AW [id number]) PT Summary Assessment and Plan Potential Rehabilitation Potential Good Status of Condition at Evaluation Evolving Summary Impairments Strength,Balance,Cognition,Bed Mobility,Transfers,Gait, Activity Tolerance Assessment Summary Pt is a 79 yo man with history of diabetes and hypertension. He was seen in the ED on 07/31 after a fall which resulted in T12-L1 compression fractures. He was admitted to ED today with respiratory distress. PLOF: Pt reports independence with all functional mobility and ADL's prior to the 07/31/19 fall. Since that time, he has remained independent with ADLs but does endorse use of bilateral canes for ambulation . CLOF: Pt reports two falls in the last month. He is limited in his mobility by respiratory distress and orthostatic hypotension. PT will continue to follow this pt if admitted. Goals Bed Mobility Goal Independent Transfer Goal Independent Gait Goal Standby Assistance,Cane Gait Distance 100 Other Goals up/down 2 steps with no railing SBA * may use bilateral canes for ambulation and stair goals. Days to Meet Goals 5 Frequency of Treatment Frequency Of Treatment Once a Day Treatment Plan Physical Therapy Treatment Plan Bed Mobility Training,Transfer Training,Gait Training, Therapeutic Exercise,Balance Retraining,Discharge Planning, Neuromuscular Re-ed, Coordination Retraining Other Recommendations and Next Treatment full set of orthostatic BP's; Focus ambulation with least restrictive device if able Recommendations To Nursing Amount of Assist Needed 1 Person Assist Discharge Recommendations PT Discharge Recommendations Home with Assistance,Home Health Equipment Needed for Home Before may need FWW for home use Discharge
[2019-08-22 14:58] LABS: Procalcitonin 0.11 ng/mL (<0.5)
[2019-08-22] MEDS: SODIUM CHLORIDE 0.9% 1,000 ML 125 ML IV (14:58)
[2019-08-22 15:17] LABS: Bacteria Urine None Seen
[2019-08-22 15:25] LABS: Culture Indicated Urine Cult Not Indicated; Mucus Urine 1+ (Negative); RBC Urine 0-1/HPF (0-5/HPF); WBC Urine 0-1/HPF (0-5/HPF)
[2019-08-23] VITALS (7 sets, daily range): BP systolic 108–123; BP diastolic 66–85; PULSE 71–116; RESP 18–20; TEMP 36.3–36.9; O2SAT 93–95
--- NOTE | 2019-08-23 06:34 | PC.NURSE ---
Pt is alert to self, and year, not to month/day, knows he's in a hospital. NS@125mL/hr running as ordered. No complaints of pain. denies chest pain. Pt's HR went into the 140s while standing up voiding. Tele:ST/Afib Pt does get OOB without calling, bed alarm on
[2019-08-23] MEDS: SODIUM CHLORIDE 0.9% 1,000 ML 125 ML IV (06:44)
[2019-08-23] MEDS: glipiZIDE 5 MG TABLET PO ×2 (07:38→16:23)
[2019-08-23] MEDS: METFORMIN HCL 500 MG TABLET 1000 MG PO ×2 (07:38→16:23)
--- NOTE | 2019-08-23 08:01 | PC.NURSE ---
Addendum entered by Farida Duque R.N. 08/23/19 11:31: Late note 1015: Patient resting in chair, increased RR of 30 noted, patient c/o feeling SOB and lightheaded, denies chest pain or feelings of apprehension. O2 is at 98%, BP is 102/63, HR 121. Patient repositioned in the chair, reminded to breath through nose to slow his RR. Patient reports decreased WOB and SOB within 5 minutes. Original Note: Patient sitting in chair eating breakfast. A/O to self, not the date or year. Can tell me he's in the hospital but not which hospital. Denies N/V, SOB, chest pain, feeling lightheaded or dizzy. Lung sounds are clear bilaterally, diminished in the bases Abd is distended, firm, patient denies tenderness or pain, last BM was 08/21. Call light in reach, legs elevated, chair alarm on. Patient denies further needs at this time.
--- NOTE | 2019-08-23 08:49 | PM.HP.1 ---
History of Present Illness History of Present Illness Date Patient Seen: 08/23/19 Time Patient Seen: 08:17 Chief complaint: weakness Narrative: Patient is a 79-year-old male with a history of multiple medical issues. Was brought by ambulance to the emergency room with weakness and complaints of shortness of breath. He had over the last week and a half had 2 fairly significant falls both which were evaluated by ER visit with and with multiple x-ray imaging and follow-up evaluation in my office. Lots pain sore back compression fractures no head changes on CT scan although he did fall and hit his head and was done. Does have a history of some dementia not great thinking this morning main complaint continues to be weakness and a is some component of shortness of breath. Period of Full workup in ER again last evening with chest CT scans to exclude pulmonary embolism and chest x-rays lab work all not really finding a clear-cut reason for sudden onset of weakness which I think talking to him this morning was more significant than the shortness of breath issue. He has been very immobile since his fall a week and half ago not breathing deeply because of mild musculoskeletal discomfort and I think he may have gotten a little atelectasis and progressive weakness secondary to no exercise activity no deep breathing and not much appetite. Has not had any choking swallowing difficulty and of aspiration. No fevers chills or nausea or vomiting. No bleeding that he is aware of and. ER evaluation labs CT scans x-rays and a chemistry tests which looked for failure heart heart injury acute ischemia all negative. Patient History Medical History Hyperlipidemia (Acute) Hypertension (Acute) Social History household members: spouse Smoking Status: Never smoker alcohol intake: never Family & Social History Social History: household members spouse Prior Living Arrangements House Safety & Behavioral: Feels Safe in Current Yes Environment Been Physically Hurt or No Threatened By a Person Suicidal Ideation Description None Suicide Plan Description No Plan Tobacco & Substance use: Smoking Status Never smoker alcohol intake never Substance Use Type does not use Meds Home Medications and Allergies Home Medications Medication Instructions Recorded Confirmed Type ezetimibe [Zetia] 10 mg PO DAILY 12/29/18 08/22/19 History insulin glargine [Lantus U-100 70 unit SUBCUT BID 12/29/18 08/22/19 History Insulin] lisinopril 40 mg PO DAILY 12/29/18 08/22/19 History metformin 1,000 mg PO BID 12/29/18 08/22/19 History metoprolol tartrate 100 mg PO BID 12/29/18 08/22/19 History hydrocodone-acetaminophen 1 tab PO Q4-6H PRN #20 tab 07/31/19 08/22/19 Rx lidocaine [Lidoderm] 1 patch TOP DAILY #15 each 07/31/19 08/22/19 Rx amlodipine 10 mg PO DAILY 08/22/19 08/22/19 History gemfibrozil 600 mg PO BID 08/22/19 08/22/19 History glipizide 5 mg PO BID 08/22/19 08/22/19 History hydrochlorothiazide 25 mg PO 1700 08/22/19 08/22/19 History ibuprofen 400 mg PO Q6H PRN 08/22/19 08/22/19 History prednisone 5 mg PO DAILY 08/22/19 08/22/19 History Allergies Allergy/AdvReac Type Severity Reaction Status Date / Time No Known Drug Allergies Allergy Verified 08/22/19 10:15 Review of Systems Review of Systems Narrative: Patient is a facially edematous and sitting breathing slightly rapidly but answering questions clearly in chair with exception of some memory limitations No complaint of headache or vision change No neck pain Breathing rapidly but takes shallow breaths secondary to some discomfort Denies chest pain palpitations or racing falls Abdomen is obese no hepatosplenomegaly had No complaints of numbness radiating pain down arms or legs other than fact that back hurts and he is just sore all over from these recent falls No real cognitive change acutely since the falls or with his episode last night No fevers chills cough sputum production nausea vomiting no urinary symptoms Exam Vital Signs (past 8 hours): - 08/23/19 05:00 08/23/19 08:00 Temperature 98.4 F 97.8 F Pulse Rate 111 H 116 H Respiratory Rate 18 20 Blood Pressure 108/67 116/69 Pulse Oximetry 93 93 Oxygen Delivery Method Room Air Oxygen Flow Rate 0 Narrative Exam Narrative: Obese white male sitting somewhat uncomfortably in chair at bedside speech is clear and with a respiratory rate slightly tachypneic PERRLA EOMs intact Speech clear Neck obesity think this is secondary to some steroid effect Lungs decreased breath sounds but no rales wheezes or signs of fluid Heart rate is regular rate and rhythm without murmur Abdomen is obese nontender no hepatosplenomegaly or mass Neuro diffusely intact although diffusely weak speech is clear some cognition deficit which is stable long-term Back mid level back pain with recent slight aggravation of pre-existing compression fractures in lower thoracic spine secondary to recent fall Objective Labs Result Diagrams: 08/22/19 10:15 08/22/19 10:15 Labs: Laboratory Results - last 24 hr 08/22/19 08/22/19 08/22/19 10:15 10:15 10:15 WBC 5.2 RBC 4.40 L Hgb 14.9 Hct 44.3 MCV 100.6 H MCH 33.8 MCHC 33.6 RDW 15.9 H Plt Count 314 Neut % (Auto) Not Reportable Lymph % (Auto) Not Reportable Parmer % (Auto) Not Reportable Eos % (Auto) Not Reportable Baso % (Auto) Not Reportable Lymph # (Auto) Not Reportable Parmer # (Auto) Not Reportable Baso # (Auto) Not Reportable Total Counted 100 Seg Neutrophils % 49.0 Lymphocytes % (Manual) 42.0 Monocytes % (Manual) 7.0 Eosinophils % (Manual) 2.0 Neutrophils # (Manual) 2548 L RBC Morphology Not Reportable Anisocytosis 1+ H Macrocytosis 1+ H PT INR APTT Sodium 137 Potassium 3.6 Chloride 98 Carbon Dioxide 23 BUN 24 H Creatinine 1.00 Estimated GFR > 60.0 BUN/Creatinine Ratio 24.0 H Glucose 138 H D Lactate 2.9 H Calcium 9.5 Total Bilirubin 0.6 AST 31 ALT 41 Alkaline Phosphatase 126 Troponin I B-Natriuretic Peptide Total Protein 7.1 Albumin 4.3 Globulin 2.8 Albumin/Globulin Ratio 1.5 Procalcitonin Urine RBC Urine WBC Urine Bacteria Urine Mucus Ur Culture Indicated? 08/22/19 08/22/19 08/22/19 10:15 10:15 10:15 WBC RBC Hgb Hct MCV MCH MCHC RDW Plt Count Neut % (Auto) Lymph % (Auto) Parmer % (Auto) Eos % (Auto) Baso % (Auto) Lymph # (Auto) Parmer # (Auto) Baso # (Auto) Total Counted Seg Neutrophils % Lymphocytes % (Manual) Monocytes % (Manual) Eosinophils % (Manual) Neutrophils # (Manual) RBC Morphology Anisocytosis Macrocytosis PT 11.0 INR 1.0 APTT 38 H Sodium Potassium Chloride Carbon Dioxide BUN Creatinine Estimated GFR BUN/Creatinine Ratio Glucose Lactate Calcium Total Bilirubin AST ALT Alkaline Phosphatase Troponin I < 0.012 B-Natriuretic Peptide < 100 Total Protein Albumin Globulin Albumin/Globulin Ratio Procalcitonin Urine RBC Urine WBC Urine Bacteria Urine Mucus Ur Culture Indicated? 08/22/19 08/22/19 08/22/19 10:15 12:35 15:05 WBC RBC Hgb Hct MCV MCH MCHC RDW Plt Count Neut % (Auto) Lymph % (Auto) Parmer % (Auto) Eos % (Auto) Baso % (Auto) Lymph # (Auto) Parmer # (Auto) Baso # (Auto) Total Counted Seg Neutrophils % Lymphocytes % (Manual) Monocytes % (Manual) Eosinophils % (Manual) Neutrophils # (Manual) RBC Morphology Anisocytosis Macrocytosis PT INR APTT Sodium Potassium Chloride Carbon Dioxide BUN Creatinine Estimated GFR BUN/Creatinine Ratio Glucose Lactate 2.0 Calcium Total Bilirubin AST ALT Alkaline Phosphatase Troponin I B-Natriuretic Peptide Total Protein Albumin Globulin Albumin/Globulin Ratio Procalcitonin 0.11 Urine RBC 0-1/hpf Urine WBC 0-1/hpf Urine Bacteria None seen Urine Mucus 1+ H Ur Culture Indicated? Cult not indicated Assessment & Plan Assessment & Plan narrative: Assessment 1. Patient is a 79-year-old male admitted with weakness in sense of shortness of breath he has had some falls think secondary to sensory ataxia or making poor decisions within the last week or 2 with a lot of musculoskeletal is comfort including mid back. I think he has probably not been moving and getting up exercising his balance or strength or deep breathing during that whole time. Full evaluation in the ER shows CT of chest normal chest x-ray clear EKG normal no chest pain troponins and BNP unremarkable lab unremarkable in terms of risk suggestion of infection elevated white count low blood count consistent bleeding or anemia. So I think this is combination of communication of impact on his chronic medical problems with acute in activity probably atelectasis superimposed over his baseline dementia and overall weakness. Assessment 2. Diabetes patient is not taking good care of his diabetes in terms of exercise and diet and. For gets an irregularly takes medications has had moderate elevations of A1c. That could be contributing to his acute weakness as well Assessment 3. Hypertension patient takes a mix of medications which are usually keep a blood pressure in fair control will continue those at this point Assessment 4. Recent compression fractures to back mild aggravation of pre-existing issues on CT scan within the last 7-10 days. Local lidocaine patch and will have physical therapy evaluate Assessment 5. Poor hard to control hyperlipidemia patient's and intolerant of multiple statins is on ezetimibe be and gemfibrozil. Will continue those medications for now Assessment 6. Appears dyspneic with effort. RT evaluation and work with him on with possibly may have been some atelectatic constriction of breathing secondary to his fall and compression fractures. Assessment 7. Component of dementia patient has poor insight and is not very compliant with his ongoing medical management for his chronic problems. Assessment 8. Gait is somewhat difficult social situation at home for both the patient and his spouse consider social professionals evaluation. Time Spent With Patient Time with patient: Greater than 35 minutes Quality VTE Deep Vein Thrombosis/Pulmonary Embolism Present on Admission: No
[2019-08-23] MEDS: EZETIMIBE 10 MG TABLET PO (09:58)
[2019-08-23] MEDS: AMLODIPINE 5 MG TABLET 10 MG PO (09:58)
[2019-08-23] MEDS: METOPROLOL IR 50 MG TABLET 100 MG PO ×2 (09:59→21:44)
[2019-08-23] MEDS: LISINOPRIL 20 MG TABLET 40 MG PO (09:59)
[2019-08-23] MEDS: LIDOCAINE PATCH 1 EACH ADH..PATCH TOP (09:59)
[2019-08-23] MEDS: INFLUENZA VACCINE 0.5 ML SYRINGE IM (10:12)
[2019-08-23] MEDS: predniSONE 2.5 MG TABLET 5 MG PO (10:18)
[2019-08-23] MEDS: GEMFIBROZIL 600 MG TABLET PO ×2 (10:26→21:44)
[2019-08-23] MEDS: INSULIN GLARGINE 100 UNIT/ML 3ML PEN 70 UNIT SUBCUT (10:30)
--- NOTE | 2019-08-23 10:32 | CM.DANOTE ---
Addendum entered by Rianna Taylor LPN 08/23/19 13:32: Met at length with pt his of 12 years, Martina. Pt mostly dozed during the discussion, rousing only to request Martina's assistance with getting comfortable in his bed. . Went over the HH specifics and Martina readily agrees to this. She does say my will fight this, he does not want anyone but me helping him and he thinks he can do everything himself. He will do best if Dr. Curran tells him this is needed. Martina plans to be here at 0700 tomorrow and to wait for Dr. Curran. At this point will request RN/OT/PT/POUCH MAKER and ESCAPEMENT MAKER (is unclear after more discussion what type of funds pt has at his disposal. Martina is on joint accounts but is not on for pt's 401K). She says she knows POA paperwork is needed but, again, says he has little insight into what is going on. She says she did well when caring for dementia residents at the [facility] but it's very different when I am the . Discussed hiring in a caregiver for a couple of hours a couple of times a week to give her time to do errands and also do some planning and thinking. She says she can hardly take care of herself and her health needs and to do more that get through each day is all that she can manage. Went over the information in the Senior Resource Guide for [facility] and with special attention to the [facility] Senior Information and Assist program as well as the t caregiver agencies. She had never seen any of this and expressed thankfulness for same. HH agency list: discussed (as well as need for homebound status). Pt will be homebound while recovering and is generally homebound but until recently has been going out in the car with Martina almost daily and then sits in the car while she runs errands. PT has never had HHS and Martina with no preference. /Cm HH vendor calendar is consulted: [facility] for this week: [facility]. Will obtain HH orders and Face/Face signature tomorrow when the physician rounds. OF NOTE: Martina is quite petite and appears frail. He is noted to be much larger and thus her physical assist ability to care for him is likely minimal. Original Note: Discharge Planning/Care Management DCP: assessment: case received, EMR reviewed and met briefly with pt. He was found sitting in chair, working with 2 RNs on breathing techniques. Pt does carry a diagnosis of dementia so decision made to call his , Martina Contreras: [phone]. Introduced self and role. Made appt to see her when she comes in this morning about 1130. Pt is a 79 year old male who admitted to care of PCP: Dr. Curran. Payer: Medicare and [employer]. Admission status: OBS: confirmed now by UR RN Michel. Pt lives at home with Martina. He has been able to mobilize independently with AD until 3 weeks ago when he fell. He has been getting around with 2 canes but mostly doing alot of sitting, per his . PT is seeing pt and thus far is recommending [facility]. Martina agrees this will be helpful. Will discuss specifics with her when she arrives. Martina says she is committed to keeping pt at home and is looking for another house that is more conducive to this (no stairs etc.). She uses to run an Adult Family Home so says she is aware of what is needed. Pt does have the funds to hire private caregiver help if need be. Martina says she has some health challenges herself and knows she needs to have backup care for her . Will plan for RN/PT/OT/POUCH MAKER and ESCAPEMENT MAKER as part of HH plan. Will need Face/Face document to be signed by Dr. Curran. P: follow as per above CM Discharge Assessment Start: 08/23/19 10:23 Freq: Status: Active Protocol: Document 08/23/19 10:24 ITV (Rec: 08/23/19 10:32 ITV [id number]) Discharge Planning Assessment Advance Directives? Yes History Provided By Family Member,Medical Record Prior Living Arrangements House Household Members spouse Document 08/23/19 10:26 ITV (Rec: 08/23/19 10:32 ITV [id number]) Discharge Planning Assessment Advance Directives? Yes History Provided By Patient,Family Member Prior Living Arrangements House Household Members spouse Type of transporation used prior to Relies on Others admit Independent with ADL's No Is patient alert and oriented? No Comment needs supportive assist from at baseline. has been able to mobilize independently until recent falls. DME Already Rented / Owned FWW / Walker,Cane Discharge Plan Home with Home Health Transportation Arrangement will set this up with pt's . Whiteboard Updated in Patient Room with Yes name and ext. # of Museum Guide Review Status In Process
[2019-08-23] MEDS: hydroCHLOROthiazide 25 MG TABLET PO (16:23)
--- NOTE | 2019-08-23 16:56 | PT.IPTN ---
Physical Therapy Treatment Note M2 PT-IP Current Condition Start: 08/22/19 11:29 Freq: Status: Active Protocol: Document 08/22/19 12:54 AW (Rec: 08/22/19 14:03 AW [id number]) Physical Therapy Current Condition Current Condition Evaluation Date 08/22/19 Treatment Diagnosis respiratory distress, impaired transfers and gait Weight Bearing Status Weight Bearing Status Full Weight Bearing M3 PT-IP Subjective Start: 08/22/19 11:29 Freq: Status: Active Protocol: Document 08/23/19 16:53 LJ (Rec: 08/23/19 16:56 LJ [id number]) Subjective Physical Therapy Visit Type Type Patient Refusal Notes Pt visited 9:00 am for therapy . States he just got into the chair and did not want to get up again. Pt visited again at 4:45 states he just got back into bed and did not want to get up again. Nursing states he has been up 2 times with 1 person assist and FWW to walk to the bathroom. See pt first thing in morning to treat prior to other activity. M4 PT-IP Mobility and Gait Start: 08/22/19 11:29 Freq: Status: Active Protocol: Document 08/22/19 12:54 AW (Rec: 08/22/19 14:03 AW [id number]) PT-Bed Mobility Assessment Rolling Type of Rolling Roll to Right Level of Assist Independent Supine to Sit Supine to Sit Standby Assistance Sit to Supine Sit to Supine Contact Guard Assistance Scooting Scooting to Edge of Bed Standby Assistance Scooting Up and Down in Bed Independent PT-Transfer Assessment Sit to and From Stand Sit to and from Stand Contact Guard Assistance Equipment Transfer Assistive Device Gait Belt,Front Wheeled Walker Orthotic/Prosthetic Devices or Brace: No Comments Mobility Comments Pt unable to transfer. Once assisted to standing, respiratory rate increased and pt reported lightheadedness. BP in sitting was 102/81. BP upon immediate standing 99/82. Pt complained of increasing lightheadedness and became pale within one minute of standing. Upon return to sitting, BP was 79/50 which recovered to 94/60 after two minutes. HR kandy to 122 in standing. SpO2 remained constant with a range of 94-97 %. Pt was assisted back to supine on the gurney and left with nursing. Gait Assessment Comments Gait Comments Unable due to respiratory distress PT-Balance Assessment Sitting Balance and Reactions Static Sitting Balance Ability Good Dynamic Sitting Balance Ability Good Standing Balance and Reactions Static Standing Balance Ability Fair Dynamic Standing Balance Ability Fair Device Used FWW M5 PT-IP Objective Assessments Start: 08/22/19 11:29 Freq: Status: Active Protocol: Document 08/22/19 12:54 AW (Rec: 08/22/19 14:03 AW [id number]) Orientation Orientation/Cognition Level of Alertness Confusional State Orientation Name,Place Language Function Ability No Deficits Noted Safety Awareness Decreased Safety Awareness Memory Description 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 He was oriented to self and place but was unable to explain why he was in the ED or to identify the year, month . Gross Range of Motion Upper Extremity ROM Assessment Within Functional Limits Lower Extremity ROM Assessment Within Functional Limits Strength Upper Extremity Strength Assessment Within Functional Limits Lower Extremity Strength Assessment Left Impaired Comments Strength Comments RLE 5/5 LLE 4/5 Coordination Assessment Gross Coordination Gross Coordination WNL Sensation Assessment Sensation Gross Sensation WNL M6 PT-IP Treatment Start: 08/22/19 11:29 Freq: Status: Active Protocol: Document 08/22/19 12:54 AW (Rec: 08/22/19 14:03 AW [id number]) Physical Therapy Treatment Education Education Provided Safety Other Treatments Other Treatment Performed Provided education on breath awareness, breathing techniques, safe use of FWW. M7 PT-IP Assessment and Plan Start: 08/22/19 11:29 Freq: Status: Active Protocol: Document 08/22/19 12:54 AW (Rec: 08/22/19 14:03 AW [id number]) PT Summary Assessment and Plan Potential Rehabilitation Potential Good Status of Condition at Evaluation Evolving Summary Impairments Strength,Balance,Cognition,Bed Mobility,Transfers,Gait, Activity Tolerance Assessment Summary Pt is a 79 yo man with history of diabetes and hypertension. He was seen in the ED on 07/31 after a fall which resulted in T12-L1 compression fractures. He was admitted to ED today with respiratory distress. PLOF: Pt reports independence with all functional mobility and ADL's prior to the 07/31/19 fall. Since that time, he has remained independent with ADLs but does endorse use of bilateral canes for ambulation . CLOF: Pt reports two falls in the last month. He is limited in his mobility by respiratory distress and orthostatic hypotension. PT will continue to follow this pt if admitted. Goals Bed Mobility Goal Independent Transfer Goal Independent Gait Goal Standby Assistance,Cane Gait Distance 100 Other Goals up/down 2 steps with no railing SBA * may use bilateral canes for ambulation and stair goals. Days to Meet Goals 5 Frequency of Treatment Frequency Of Treatment Once a Day Treatment Plan Physical Therapy Treatment Plan Bed Mobility Training,Transfer Training,Gait Training, Therapeutic Exercise,Balance Retraining,Discharge Planning, Neuromuscular Re-ed, Coordination Retraining Other Recommendations and Next Treatment full set of orthostatic BP's; Focus ambulation with least restrictive device if able Recommendations To Nursing Amount of Assist Needed 1 Person Assist Discharge Recommendations PT Discharge Recommendations Home with Assistance,Home Health Equipment Needed for Home Before may need FWW for home use Discharge
[2019-08-24] VITALS (7 sets, daily range): BP systolic 105–127; BP diastolic 57–73; PULSE 73–87; RESP 16–20; TEMP 36.3–36.8; O2SAT 92–94
[2019-08-24 05:33] LABS: Hematocrit 33.5 % (41-53); Hemoglobin 11.6 g/dL (13.5-17.5); Mean Corpuscular HGB Conc 34.6 % (30-36); Mean Corpuscular Hemoglobin 34.4 PG (26-34); Mean Corpuscular Volume 99.5 fL (80-100); Platelet Count 197 X10^3/uL (150-400); Red Blood Cell Count 3.36 X10^6/uL (4.5-5.9); Red Cell Distribution Width 15.9 % (11.6-14.8); White Blood Cell Count 4.5 X10^3/uL (4.5-11.0)
[2019-08-24 05:34] LABS: Add Manual Diff / Slide Review YES
[2019-08-24 05:39] LABS: Alanine Aminotransferase 47 IU/L (21-72); Albumin Globulin Ratio 1.2 (1.0-2.8); Alkaline Phosphatase 84 U/L (38-126); Aspartate Aminotransferase 33 IU/L (17-59); BUN Creatinine Ratio 21.4 (6-22); Bilirubin Total 0.3 mg/dL (0.2-1.3); Blood Urea Nitrogen 15 mg/dL (9-20); Calcium 7.6 mg/dL (8.4-10.2); Carbon Dioxide 21 mmol/L (22-32); Chloride 107 mmol/L (98-107); Estimated Glomerular Filt Rate > 60.0 mL/min (>60); Globulin 2.5 g/dL (1.7-4.1); Glucose 138 mg/dL (80-110); HEMOLYSIS < 15 (0-50); Potassium 3.5 mmol/L (3.4-5.1); Sodium 135 mmol/L (137-145); Total Protein 5.5 g/dL (6.3-8.2)
[2019-08-24 05:41] LABS: B Type Natriuretic Peptide < 100 (<100)
[2019-08-24] MEDS: SODIUM CHLORIDE 0.9% 1,000 ML 125 ML IV ×3 (06:14→22:55)
--- NOTE | 2019-08-24 06:58 | PC.NURSE ---
Fingerstick at 0200 was 52, pt asymptomatic. Given some juice and a sandwich. Blood sugar went back up to 153.
[2019-08-24 07:08] LABS: Neutrophils Absolute Manual 3555 /uL (3000-5900); Total Cells Counted 100
[2019-08-24 07:11] LABS: Anisocytosis 1+
--- NOTE | 2019-08-24 07:54 | PM.PN.1 ---
Subjective Subjective Date Patient Seen: 08/24/19 Time Patient Seen: 08:04 Interval history: Patient is a 79-year-old male admitted for weakness and dyspnea on exertion in setting of dementia, poorly managed medical conditions and recent fall with compression fractures. Working diagnosis is atelectasis from poor inspiratory effort secondary to pain from compression fractures and muscle wasting from inactivity after the fall leading to weakness. Patient is working with physical therapy and respiratory therapy and is making some progress but is not back to baseline. He is tolerating diet with no nausea or vomiting. Afebrile with stable vital signs throughout. Reports pain controlled with medication. Exam Vital Signs (past 8 hours): - 08/24/19 03:00 Temperature 97.4 F L Pulse Rate 85 Respiratory Rate 18 Blood Pressure 105/70 Pulse Oximetry 94 Oxygen Delivery Method Room Air Oxygen Flow Rate 0 Narrative Exam Narrative: General: Alert and oriented, no acute distress. HEENT: PERRLA EOMs intact Lungs: Poor inspiratory effort with decreased breath sounds, no rales or wheezes. CV: regular rate and rhythm without murmur GI: Abdomen is obese, nontender, nondistended. Nohepatosplenomegaly or mass. Neuro: Intact although diffusely weak speech. Some cognition deficit. M/S: Mid-thoracic back pain. Objective Labs Result Diagrams: 08/24/19 05:10 08/24/19 05:10 Labs: Laboratory Results - last 24 hr 08/24/19 08/24/19 05:10 05:10 WBC 4.5 RBC 3.36 L Hgb 11.6 L Hct 33.5 L MCV 99.5 MCH 34.4 H MCHC 34.6 RDW 15.9 H Plt Count 197 Neut % (Auto) Not Reportable Lymph % (Auto) Not Reportable [place] % (Auto) Not Reportable Eos % (Auto) Not Reportable Baso % (Auto) Not Reportable Lymph # (Auto) Not Reportable [place] # (Auto) Not Reportable Baso # (Auto) Not Reportable Total Counted 100 Seg Neutrophils % 72.0 H Band Neutrophils % 7.0 Lymphocytes % (Manual) 14.0 L Monocytes % (Manual) 5.0 Basophils % (Manual) 1.0 Myelocytes % 1.0 H Neutrophils # (Manual) 3555 RBC Morphology See below Anisocytosis 1+ H Sodium 135 L Potassium 3.5 Chloride 107 Carbon Dioxide 21 L BUN 15 Creatinine 0.70 Estimated GFR > 60.0 BUN/Creatinine Ratio 21.4 Glucose 138 H Calcium 7.6 L Total Bilirubin 0.3 AST 33 ALT 47 Alkaline Phosphatase 84 B-Natriuretic Peptide < 100 Total Protein 5.5 L Albumin 3.0 L Globulin 2.5 Albumin/Globulin Ratio 1.2 Assessment & Plan Assessment & Plan narrative: Assessment 1. Patient is a 79-year-old male admitted with weakness, multifactorial and exacerbated by dementia and poor compliance with medication management, acute on chronic. PT consulting, continue. Assessment 2. Diabetes mellitus type 2, continue home Zetia, glipizide, metformin, and Lantus. Assessment 3. Hypertension controlled on home medications, continue. Assessment 4. Compression fractures, acute. Continue lidocaine patch and hydrocodone as needed. Physical therapy following. Assessment 5. Hyperlipidemia with poor control, will continue home medication therapy for now S patient is intolerant of statins. Assessment 6. Dyspnea with exertion, possibly secondary to fall versus compression fractures. RT consulting, continue. Assessment 7. Dementia, as above. Assessment 8. Fall risk, PT consulting. Assessment 9: Anemia, hyponatremia, hypochloremia, likely dilutional from fluids, will watch closely and trend values. Quality VTE Deep Vein Thrombosis/Pulmonary Embolism Present on Admission: No
[2019-08-24] MEDS: GEMFIBROZIL 600 MG TABLET PO ×2 (08:14→21:51)
[2019-08-24] MEDS: LISINOPRIL 20 MG TABLET 40 MG PO (08:14)
[2019-08-24] MEDS: EZETIMIBE 10 MG TABLET PO (08:14)
[2019-08-24] MEDS: predniSONE 2.5 MG TABLET 5 MG PO (08:15)
[2019-08-24] MEDS: LIDOCAINE PATCH 1 EACH ADH..PATCH TOP (08:16)
[2019-08-24] MEDS: METOPROLOL IR 50 MG TABLET 100 MG PO ×2 (08:17→21:51)
[2019-08-24] MEDS: hydroCHLOROthiazide 25 MG TABLET PO (08:18)
[2019-08-24] MEDS: AMLODIPINE 5 MG TABLET 10 MG PO (08:18)
[2019-08-24] MEDS: IBUPROFEN 400 MG TABLET PO (09:34)
[2019-08-24] MEDS: HYDROCODONE/ACET 5/325 TABLET 1 TAB PO (09:34)
[2019-08-24] MEDS: METFORMIN HCL 500 MG TABLET 1000 MG PO ×2 (09:44→16:57)
[2019-08-24] MEDS: glipiZIDE 5 MG TABLET PO ×2 (09:44→16:57)
--- NOTE | 2019-08-24 10:21 | PC.NURSE ---
Pt is A&Ox3. Given 1 vicodin and Ibuprofen for complaints of 7/10 back pain. Pt also has a lidocaine patch on his lower back. BS 87 this am and up to 126 after eating breakfast. Given oral diabetic medications and 70u of insulin held at this time until noon BS check. is in room and pt no longer denies discomfort.
[2019-08-24] MEDS: INSULIN GLARGINE 100 UNIT/ML 3ML PEN 70 UNIT SUBCUT (12:24)
--- NOTE | 2019-08-24 14:11 | PT.IPTN ---
Physical Therapy Treatment Note M2 PT-IP Current Condition Start: 08/22/19 11:29 Freq: Status: Active Protocol: Document 08/22/19 12:54 AW (Rec: 08/22/19 14:03 AW [id number]) Physical Therapy Current Condition Current Condition Evaluation Date 08/22/19 Treatment Diagnosis respiratory distress, impaired transfers and gait Weight Bearing Status Weight Bearing Status Full Weight Bearing M3 PT-IP Subjective Start: 08/22/19 11:29 Freq: Status: Active Protocol: Document 08/24/19 13:57 CLB (Rec: 08/24/19 15:53 CLB [id number]) Subjective Physical Therapy Visit Type Type Treatment Note Visit Start Time 13:57 Visit Stop Time 14:11 Total Visit Minutes 14 Number of LEARNING FACILITATOR Visits 1 Physical Therapy Visit Comments Patient Comments Pt wanting to get up to use toilet and have a shower. M4 PT-IP Mobility and Gait Start: 08/22/19 11:29 Freq: Status: Active Protocol: Document 08/24/19 13:57 CLB (Rec: 08/24/19 15:53 CLB [id number]) PT-Bed Mobility Assessment Rolling Type of Rolling Roll to Left Level of Assist Independent Supine to Sit Supine to Sit Standby Assistance Scooting Scooting to Edge of Bed Standby Assistance PT-Transfer Assessment Sit to and From Stand Sit to and from Stand Contact Guard Assistance Equipment Transfer Assistive Device Gait Belt,Front Wheeled Walker Orthotic/Prosthetic Devices or Brace: No Transfers Transfer Destination Toilet Transfer Technique Stand Step Pivot Transfer Ability Level of Assist Contact Guard Assistance Gait Assessment Gait Gait Assistance Required: Contact Guard Assist Distance (Feet) 10 Able to Maintain Weight Bearing Status Yes During Gait Assistive Devices Assistive Device Gait Belt,Front Wheeled Walker Orthotic/Prosthetic Devices or Brace: No Gait Deviations General Gait Pattern Decreased Stride Length, Decreased Feet Clearance, Flexed Trunk,Wide Based Gait Factors Limiting Gait Function Factors Limiting Gait Function Decreased Activity Tolerance, Decreased Strength,Poor Balance,Poor Safety Awareness, Respiratory Distress Comments Gait Comments Pt able to ambulate to BR ~ 10ft with FWW/CGA. M5 PT-IP Objective Assessments Start: 08/22/19 11:29 Freq: Status: Active Protocol: Document 08/22/19 12:54 AW (Rec: 08/22/19 14:03 AW [id number]) Orientation Orientation/Cognition Level of Alertness Confusional State Orientation Name,Place Language Function Ability No Deficits Noted Safety Awareness Decreased Safety Awareness Memory Description Short Term Impaired,[place]ison Impaired Comments Pt presented with waxing and waning mentation/awareness. He was oriented to self and place but was unable to explain why he was in the ED or to identify the year, month . Gross Range of Motion Upper Extremity ROM Assessment Within Functional Limits Lower Extremity ROM Assessment Within Functional Limits Strength Upper Extremity Strength Assessment Within Functional Limits Lower Extremity Strength Assessment Left Impaired Comments Strength Comments RLE 5/5 LLE 4/5 Coordination Assessment Gross Coordination Gross Coordination WNL Sensation Assessment Sensation Gross Sensation WNL M6 PT-IP Treatment Start: 08/22/19 11:29 Freq: Status: Active Protocol: Document 08/22/19 12:54 AW (Rec: 08/22/19 14:03 AW [id number]) Physical Therapy Treatment Education Education Provided Safety Other Treatments Other Treatment Performed Provided education on breath awareness, breathing techniques, safe use of FWW. M7 PT-IP Assessment and Plan Start: 08/22/19 11:29 Freq: Status: Active Protocol: Document 08/24/19 13:57 CLB (Rec: 08/24/19 15:53 CLB [id number]) PT Summary Assessment and Plan Summary Impairments Strength,Balance,Cognition,Bed Mobility,Transfers,Gait, Activity Tolerance Assessment Summary Pt able to ambulate to BR with CGA using FWW. RN recommended pt ambulate w/o O2 and pt was able to ambulate ~10ft, O2 sats on RA 91%. Left pt on toilet with SIGNAL MAINTAINER present to give pt a shower. Goals Bed Mobility Goal Independent Transfer Goal Independent Gait Goal Standby Assistance,Cane Gait Distance 100 Other Goals up/down 2 steps with no railing SBA * may use bilateral canes for ambulation and stair goals. Days to Meet Goals 5 Frequency of Treatment Frequency Of Treatment Once a Day Treatment Plan Physical Therapy Treatment Plan Bed Mobility Training,Transfer Training,Gait Training, Therapeutic Exercise,Balance Retraining,Discharge Planning, Neuromuscular Re-ed, Coordination Retraining Other Recommendations and Next Treatment increase ambulation distance Focus with least restrictive device, stairs if able, Recommendations To Nursing Amount of Assist Needed 1 Person Assist Discharge Recommendations PT Discharge Recommendations Home with Assistance,Home Health Equipment Needed for Home Before may need FWW for home use Discharge
--- NOTE | 2019-08-24 17:39 | CM.DPC ---
DCP: continued: Pt did not d/c today as expected. Dr. Simpson was here to see him and confirmed he will stay on until tomorrow. and pt requesting assistance with notarizing POA and AD paperwork. Called Medical Records for assist and they kindly provided notary support for pt. P: remains home with [facility] and when stable for same.
[2019-08-25 03:02] VITALS: BP 134/77; PULSE 78; RESP 18; TEMP 36.4; O2SAT 91
[2019-08-25 06:04] LABS: BUN Creatinine Ratio 17.1 (6-22); Blood Urea Nitrogen 12 mg/dL (9-20); Calcium 7.5 mg/dL (8.4-10.2); Carbon Dioxide 20 mmol/L (22-32); Chloride 111 mmol/L (98-107); Estimated Glomerular Filt Rate > 60.0 mL/min (>60); Glucose 67 mg/dL (80-110); HEMOLYSIS < 15 (0-50); Potassium 3.3 mmol/L (3.4-5.1); Sodium 138 mmol/L (137-145)
[2019-08-25] MEDS: SODIUM CHLORIDE 0.9% 1,000 ML 125 ML IV (06:12)
[2019-08-25 06:16] LABS: Hematocrit 32.7 % (41-53); Mean Corpuscular HGB Conc 33.7 % (30-36); Mean Corpuscular Hemoglobin 34.4 PG (26-34); Mean Corpuscular Volume 102.2 fL (80-100); Platelet Count 192 X10^3/uL (150-400); Red Cell Distribution Width 15.9 % (11.6-14.8); White Blood Cell Count 3.7 X10^3/uL (4.5-11.0)
[2019-08-25 06:20] LABS: Add Manual Diff / Slide Review YES
--- NOTE | 2019-08-25 06:25 | PC.NURSE ---
Pt BG ranged from 47 at 0300. Gave pt 120cc OJ with cheese stick. Recheck at 0330 BG 66. gave OJ and cheese stick. BG recheck at 0400 86. Recheck at 0430 BG 81. Pt BG more than 70 x2. Recheck BG at 0600 57, OJ and cheese stick given. Called provider, await return call. Pt had no symptoms of hypoglycemia during the night. He stated, this orange juice is good. Offered education as to why OJ/protein was given and rational for freq BG checks, what goal BG range is ideally. Reinforcing BG control education.
[2019-08-25 07:29] LABS: Anisocytosis 1+; Macrocytosis 1+; Neutrophils Absolute Manual 2775 /uL (3000-5900); Total Cells Counted 100
[2019-08-25 07:55] VITALS: BP 133/80; PULSE 89; RESP 17; TEMP 36.1; O2SAT 92
[2019-08-25] MEDS: EZETIMIBE 10 MG TABLET PO (09:33)
[2019-08-25] MEDS: hydroCHLOROthiazide 25 MG TABLET PO (09:33)
[2019-08-25] MEDS: predniSONE 2.5 MG TABLET 5 MG PO (09:33)
[2019-08-25] MEDS: GEMFIBROZIL 600 MG TABLET PO (09:34)
[2019-08-25] MEDS: AMLODIPINE 5 MG TABLET 10 MG PO (09:34)
[2019-08-25] MEDS: METOPROLOL IR 50 MG TABLET 100 MG PO (09:35)
[2019-08-25 09:39] VITALS: BP 128/76; PULSE 97
[2019-08-25] MEDS: LISINOPRIL 20 MG TABLET 40 MG PO (09:39)
[2019-08-25] MEDS: LIDOCAINE PATCH 1 EACH ADH..PATCH TOP (09:43)
[2019-08-25] MEDS: IBUPROFEN 400 MG TABLET PO (09:52)
[2019-08-25] MEDS: HYDROCODONE/ACET 5/325 TABLET 1 TAB PO (11:15)
--- NOTE | 2019-08-25 12:56 | PM.DS.1 ---
History of Present Illness History of Present Illness Date Patient Seen: 08/25/19 Time Patient Seen: 12:30 Chief complaint: weakness Narrative: Patient is a 79-year-old male with a history of multiple medical issues. Was brought by ambulance to the emergency room with weakness and complaints of shortness of breath. He had over the last week and a half had 2 fairly significant falls both which were evaluated by ER visit with and with multiple x-ray imaging and follow-up evaluation in my office. Lots pain sore back compression fractures no head changes on CT scan although he did fall and hit his head and was done. Does have a history of some dementia not great thinking this morning main complaint continues to be weakness and a is some component of shortness of breath. Period of Full workup in ER again last evening with chest CT scans to exclude pulmonary embolism and chest x-rays lab work all not really finding a clear-cut reason for sudden onset of weakness which I think talking to him this morning was more significant than the shortness of breath issue. He has been very immobile since his fall a week and half ago not breathing deeply because of mild musculoskeletal discomfort and I think he may have gotten a little atelectasis and progressive weakness secondary to no exercise activity no deep breathing and not much appetite. Has not had any choking swallowing difficulty and of aspiration. No fevers chills or nausea or vomiting. No bleeding that he is aware of and. ER evaluation labs CT scans x-rays and a chemistry tests which looked for failure heart heart injury acute ischemia all negative. Discharge Providers Provider Date of admission: 08/22/19 15:53 Discharge Date: 08/25/19 Primary care physician: Berto Curran MD Consults: 08/22/19 11:23 Consult to Physical Therapy Evaluate & Treat Comment: Physician Instructions: Evaluate and Treat 08/22/19 14:54 Consult to Physician Routine Comment: Consulting Provider: Berto Curran Reason for consultation: Admission Has provider been notified: Yes Discharge provider: Berto Curran MD Summary Hospital Course Hospital Course: Patient been worked with with physical therapy gotten some strength back. I think that he had been immobile secondary to some falls at home and that led to with weakness and and deconditioning. Much better at this point not having any concerns with profound weakness or shortness of breath. Has had some low blood sugars which resolved with orange juice. Will not anticipate that having at home because patient does have does not have nearly the controlled diet. We have reviewed that at length today Status at Discharge Cognitive/behavioral status at discharge: at baseline, oriented Time Spent with Patient Time spent: Greater than 30 minutes Exam Vital Signs (past 8 hours): - 08/25/19 07:55 08/25/19 09:39 Temperature 97 F L Pulse Rate 89 97 H Respiratory Rate 17 Blood Pressure 133/80 128/76 Pulse Oximetry 92 Oxygen Delivery Method Room Air Oxygen Flow Rate 0 Narrative Exam Narrative: PERRLA EOMs intact Sitting comfortably speaking clearly answering questions clearly knowledge is heel after work better on his blood sugar Lungs clear to auscultation and percussion Heart shows regular rate and rhythm without murmur S3 No significant dependent edema Abdomen soft no hepatosplenomegaly mass rebound or guarding Skin without significant lesions Neuro symmetrical nonfocal motor sensory speech clear cranial nerves intact Objective Labs Result Diagrams: 08/25/19 05:10 08/25/19 05:10 Labs: Laboratory Results - last 24 hr 08/25/19 08/25/19 05:10 05:10 WBC 3.7 L RBC 3.20 L Hgb 11.0 L Hct 32.7 L MCV 102.2 H MCH 34.4 H MCHC 33.7 RDW 15.9 H Plt Count 192 Neut % (Auto) Not Reportable Lymph % (Auto) Not Reportable [place] % (Auto) Not Reportable Eos % (Auto) Not Reportable Baso % (Auto) Not Reportable Lymph # (Auto) Not Reportable [place] # (Auto) Not Reportable Baso # (Auto) Not Reportable Total Counted 100 Seg Neutrophils % 67.0 Band Neutrophils % 8.0 H Lymphocytes % (Manual) 18.0 L Monocytes % (Manual) 6.0 Metamyelocytes % 1.0 H Neutrophils # (Manual) 2775 L RBC Morphology See below Anisocytosis 1+ H Macrocytosis 1+ H Sodium 138 Potassium 3.3 L Chloride 111 H Carbon Dioxide 20 L BUN 12 Creatinine 0.70 Estimated GFR > 60.0 BUN/Creatinine Ratio 17.1 Glucose 67 L Calcium 7.5 L Discharge Plan Discharge Plan Patient Disposition: Home Discharge comment: Patient with resolution of weakness and sense of shortness of breath. Discharge Med Rec/Prescriptions Prescriptions: Continued hydrocodone-acetaminophen 5-325 mg tablet 1 tab PO Q4-6H PRN (Reason: pain) Qty: 20 RF: 0 lidocaine [Lidoderm] 5 % adhesive patch,medicated 1 patch TOP DAILY Qty: 15 RF: 0 metformin 500 mg Tablet 1,000 mg PO BID RF: 0 Lantus U-100 Insulin 100 unit/mL Solution 70 unit SUBCUT BID RF: 0 lisinopril 20 mg Tablet 40 mg PO DAILY RF: 0 ezetimibe [Zetia] 10 mg Tablet 10 mg PO DAILY RF: 0 metoprolol tartrate 25 mg Tablet 100 mg PO BID RF: 0 amlodipine 10 mg Tablet 10 mg PO DAILY RF: 0 glipizide 5 mg Tablet 5 mg PO BID RF: 0 ibuprofen 200 mg Capsule 400 mg PO Q6H PRN (Reason: Breakthrough Pain, Moderate) RF: 0 gemfibrozil 600 mg Tablet 600 mg PO BID RF: 0 hydrochlorothiazide 25 mg Tablet 25 mg PO 1700 RF: 0 prednisone 5 mg Tablet 5 mg PO DAILY RF: 0 Follow up/Referrals: Berto Curran MD [Primary Care Provider] - Provider Discharge Instructions Diet: Carb-consistent/Diabetic Activity: walking Skin/Wound/Dressing Care Report to your healthcare provider any signs of infection, such as:: chills, fever, night sweats and increased pain Discharge Data Primary Care Provider: Berto Curran Attending Provider: Berto Curran Admit Date/Time: 08/22/19 15:53 Quality VTE Deep Vein Thrombosis/Pulmonary Embolism Present on Admission: No
--- NOTE | 2019-08-25 13:41 | CM.DPC ---
DCP Cont: Spoke to Dr. Curran who was here, and asked if he was discharging patient today. Stated that he could go home today, and would write discharge orders. Patient will be getting [facility], already called them and let them know that patient is being discharged. Patient will be getting O.T, P.T, nursing, DIVISION SERGEANT, and bath aide. Sent over face to face, orders, DC summary, and prog note matching date on face to face. P:Patient is to be discharged today home with [facility]. Cecelia Huynh RN/Director News
--- NOTE | 2019-08-25 15:21 | PC.NURSE ---
Discharge Note: Pt with uneventful shift. Pt with hypoglycemia overnight. MD Rodriguez and Magdy notified. All hypoglycemics held per MD order. Pt with BG 68 this am, given orange juice and protein snack at that time. Then BG 132 at lunch. BG rechecked at discharge and 200. Pt instructed to resume all medications as they had been taken prior to admission. Pt currently on RA, SPO2 mid 90s. Slight dyspnea on exertion, pt denies SOB but RR increased with activity. Pt SB assist to bathroom. Able to dress himself with minimum assistance. Pt's at bedside and updated with plan, participating in pt care. Pt discharged to ER by wheelchair to private vehicle without incident.
== END 2019-08-25 15:46 | disposition home or self-care (01) ==
LOC: ED 14:53 → AC 15:58
PROVIDERS: Student in an Organized Health Care Education/Training Program; Admitting Provider Family Medicine; Emergency Provider Emergency Medicine; PCP Family Medicine; Visit Provider Family Medicine
DX: R53.1 Weakness (principal); R06.02 Shortness of breath; Z23 Encounter for immunization; I10 Essential (primary) hypertension; F03.90 Unspecified dementia, unspecified severity, without behavioral disturbance, psychotic disturbance, mood disturbance, and anxiety; Z91.81 History of falling; M48.50XD Collapsed vertebra, not elsewhere classified, site unspecified, subsequent encounter for fracture with routine healing
CPT/HCPCS: 36415; 71046; 71275; 80048; 80053; 81003; 81015; 82550; 82962; 83605; 83880; 84145; 84484; 85025; 85610; 85730; 90471; 90656; 93005; 94760; 96360; 96361; 97162; 97530; 99282; 99284; 99285; G0378; Q2038; Q9967

== ENCOUNTER 2019-08-25 19:50 | Emergency (ER) | payer MEDICARE, OTHER, SELFPAY ==
[2019-08-22 16:03] VITALS: BMI 27.2
[2019-08-25 19:51] VITALS: BP 153/79; PULSE 94; RESP 16; TEMP 36.2; O2SAT 96
--- NOTE | 2019-08-25 19:51 | ED_ITS ---
HPI - Back Pain/Injury General Chief Complaint: Fall Stated Complaint: Back pain s/p fall Time Seen by Provider: 08/25/19 19:50 Source: patient and family Mode of arrival: Ambulatory Limitations: no limitations History of Present Illness HPI Narrative: 79-year-old male nonsmoker with history of hypertension, hyperli pidemia, chronic back pain and what sounds like early dementia presents by EMS for evaluation of some back pain. He was recently he discharge from the hospital after a multi day stay to evaluate for frequent falls and weakness. In the and no significant home diagnoses were made. He was discharged home with extensive discussion regarding how to safely get through his home including the use of ambulation assisted devices such as cane or walker. He was admittedly being a bit stubborn this afternoon and refused to use his walker and his feet got caught up in a rug and he fell forward. He denies hitting his head and has no neck pain. He states his back pain is at his baseline. He admitted the does not have full recall but this has been the norm for him as of late. His is at bedside and states that he looks like he is largely at his baseline, she is visibly angered that he is not using his walker Complaint: back pain and fall Onset (ago): hour(s) Duration: improved Similar Symptoms Previously: Yes Location: lumbar spine Severity: moderate Quality: aching Radiation: none Relieving factors: none Exacerbating factors: movement Context: fall Associated symptoms: denies other symptoms Related Data Home Medications Medication Instructions Recorded Confirmed Lantus U-100 Insulin 70 unit SUBCUT BID 12/29/18 08/22/19 ezetimibe [Zetia] 10 mg PO DAILY 12/29/18 08/22/19 lisinopril 40 mg PO DAILY 12/29/18 08/22/19 metformin 1,000 mg PO BID 12/29/18 08/22/19 metoprolol tartrate 100 mg PO BID 12/29/18 08/22/19 amlodipine 10 mg PO DAILY 08/22/19 08/22/19 gemfibrozil 600 mg PO BID 08/22/19 08/22/19 glipizide 5 mg PO BID 08/22/19 08/22/19 hydrochlorothiazide 25 mg PO 1700 08/22/19 08/22/19 ibuprofen 400 mg PO Q6H PRN 08/22/19 08/22/19 prednisone 5 mg PO DAILY 08/22/19 08/22/19 Previous Rx's Medication Instructions Recorded hydrocodone-acetaminophen 1 tab PO Q4-6H PRN #20 tab 07/31/19 lidocaine [Lidoderm] 1 patch TOP DAILY #15 each 07/31/19 Allergies Allergy/AdvReac Type Severity Reaction Status Date / Time No Known Drug Allergies Allergy Verified 08/22/19 10:15 Review of Systems Constitutional Constitutional: Denies chills, Denies fatigue, Denies fever(s), Denies frequent falls, Denies lethargy and Denies weakness Eyes Eyes: Denies change in vision, Denies eye discharge, Denies irritation and Denies loss of vision ENT Ears, Nose, Mouth, and Throat: Denies change in voice, Denies dizziness, Denies neck pain, Denies sore throat and Denies throat swelling Cardiovascular Cardiovascular: Denies chest pain, Denies irregular heart rhythm, Denies lightheadedness, Denies palpitations, Denies dyspnea, Denies dyspnea on exertion and Denies orthopnea Respiratory Respiratory: Denies cough, Denies dyspnea, Denies dyspnea on exertion and Denies wheezing Gastrointestinal Gastrointestinal: Denies abdominal pain, Denies change in bowel habits, Denies diarrhea, Denies nausea and Denies vomiting Genitourinary Genitourinary: Denies hematuria, Denies flank pain, Denies urinary incontinence and Denies urinary urgency Musculoskeletal Musculoskeletal: Reports back pain, Denies muscle weakness, Denies neck pain, Denies numbness and Denies tingling Integumentary/Breasts Skin/Breast: Denies pruritus, Denies erythema, Denies rash and Denies wounds Neurologic Neurologic: Denies behavioral changes, Denies confusion, Denies dizziness, Denies frequent falls, Denies loss of vision, Denies numbness, Denies tingling and Denies weakness Psychiatric Psychiatric: Denies anxiety, Denies behavioral changes, Denies confusion, Denies depression, Denies homicidal ideation and Denies suicidal ideation Endocrine Endocrine: Denies fatigue, Denies flushing and Denies palpitations Hematologic/Lymphatic Hematologic/Lymphatic: Denies easy bruising Allergic/Immunologic Allergic/Immunologic: Denies urticaria, Denies throat swelling and Denies wheezing Patient History Medical History Hyperlipidemia (Acute) Hypertension (Acute) Social History household members: spouse Smoking Status: Never smoker alcohol intake: never Social History household members: spouse Smoking Status: Never smoker alcohol intake: never Exam Narrative Exam Narrative: GENERAL: [79] year old patient appears stated age. Well- nourished, well-developed patient, in mild distress. HEAD: Atraumatic. Normocephalic. EYES: Pupils equal round and reactive. Extraocular motions intact. No scleral icterus. No injection or drainage. ENT: Nose without bleeding, purulent drainage. Throat without erythema, tonsillar hypertrophy or exudate. Airway patent. NECK: Trachea midline. Non tender CARDIOVASCULAR: Regular rate and rhythm without murmurs, gallops, or rubs. RESPIRATORY: Clear to auscultation. Breath sounds equal bilaterally. No wheezes, rales, or rhonchi. GASTROINTESTINAL: Abdomen soft, non-tender, nondistended. EXTREMITIES: No edema or joint tenderness. BACK: Nontender without deformity or crepitance. No flank tenderness. NEURO: AOx3. SKIN: No rash or erythema of visible areas Initial Vital Signs Initial Vital Signs: Vital Signs Temperature 97.2 F L 08/25/19 19:51 Pulse Rate 94 H 08/25/19 19:51 Respiratory Rate 16 08/25/19 19:51 Blood Pressure 153/79 H 08/25/19 19:51 Pulse Oximetry 96 08/25/19 19:51 Course Orders Ordered: ED Orders 08/25/19 20:50 Complete Blood Count AUTO DIFF Stat Comprehensive Metabolic Panel Stat Troponin & CK Cardiac Panel Stat Vital Signs Vital signs: Vital Signs - 8 hr 08/25/19 19:51 08/25/19 23:03 Temperature 97.2 F L Pulse Rate 94 H 81 Respiratory Rate 16 26 H Blood Pressure 153/79 H 142/77 H Pulse Oximetry 96 96 MDM - Back Pain/Injury Lab Data Result diagrams: 08/25/19 20:50 08/25/19 20:50 Labs: Lab Results 08/25/19 08/25/19 Range/Units 20:50 20:50 WBC 4.3 L (4.5-11.0) X10^3/uL RBC 3.50 L (4.5-5.9) X10^6/uL Hgb 11.9 L (13.5-17.5) g/dL Hct 35.7 L (41-53) % MCV 102.0 H (80-100) fL MCH 34.1 H (26-34) PG MCHC 33.4 (30-36) % RDW 16.0 H (11.6-14.8) % Plt Count 214 (150-400) X10^3/uL Neut % (Auto) 77.9 H (50-75) % Lymph % (Auto) 13.1 L (25-40) % [place] % (Auto) 7.2 (3-14) % Eos % (Auto) 1.2 L (2-4) % Baso % (Auto) 0.6 (0-2) % Neut # (Auto) 3300 (4812-6190) /uL Lymph # (Auto) 600 L (1900-7677) /uL [place] # (Auto) 300 (0-900) /uL Eos # (Auto) 100 (0-450) /uL Baso # (Auto) 0 (0-100) /uL Sodium 138 (137-145) mmol/L Potassium 3.9 (3.4-5.1) mmol/L Chloride 109 H (98-107) mmol/L Carbon Dioxide 19 L (22-32) mmol/L BUN 10 (9-20) mg/dL Creatinine 0.60 L (0.66-1.25) mg/dL Estimated GFR > 60.0 (>60) mL/min BUN/Creatinine Ratio 16.7 (6-22) Glucose 205 H D (80-110) mg/dL Calcium 8.1 L (8.4-10.2) mg/dL Total Bilirubin 0.4 (0.2-1.3) mg/dL AST 43 (17-59) IU/L ALT 67 (21-72) IU/L Alkaline Phosphatase 132 H D (38-126) U/L Total Creatine Kinase 27 L (55-170) U/L CK-MB (CK-2) TNP CK-MB (CK-2) Rel Index TNP Troponin I < 0.012 (0.01-0.034) ng/mL Total Protein 6.5 (6.3-8.2) g/dL Albumin 3.7 (3.5-5.0) g/dL Globulin 2.8 (1.7-4.1) g/dL Albumin/Globulin Ratio 1.3 (1.0-2.8) Urine Dip Bedside Urine Bilirubin - Negative Bedside Urine Ketone - Negative Urine Specific [place] 1.015 Bedside Urine Occult Blood - Negative Bedside Urine pH 6.0 Bedside Urine Protein + 30 Bedside Urine Urobilinogen - Negative Bedside Urine Nitrite - Negative Bedside Urine Leukocytes - Negative Esterase MDM Narrative Medical decision making narrative: Patient ambulates to the department with the use of a walker and feels great, he is requesting discharge. He and have had questions answered to their apparent satisfaction and had been given return precautions. He understands the need to use assistance while ambulating Discharge Plan Departure Patient Disposition: Home Clinical Impression: Fall from ground level Discharge Date/Time: 08/25/19 23:03 Instructions: How to Prevent Falls Activity Restrictions/Additional Instructions: *You have been diagnosed with [fall] *What to do: *Take medications as directed *Follow up with your primary care provider in 2-3 days, call for an appointment. Let them know you were seen in the Emergency Department and that we ask that you be seen in follow up *Return to ER if you should have any new, worsening or concerning symptoms USE YOUR WALKER OR CANE Prescriptions: No Action hydrocodone-acetaminophen 5-325 mg tablet 1 tab PO Q4-6H PRN (Reason: pain) Qty: 20 RF: 0 lidocaine [Lidoderm] 5 % adhesive patch,medicated 1 patch TOP DAILY Qty: 15 RF: 0 metformin 500 mg Tablet 1,000 mg PO BID RF: 0 Lantus U-100 Insulin 100 unit/mL Solution 70 unit SUBCUT BID RF: 0 lisinopril 20 mg Tablet 40 mg PO DAILY RF: 0 ezetimibe [Zetia] 10 mg Tablet 10 mg PO DAILY RF: 0 metoprolol tartrate 25 mg Tablet 100 mg PO BID RF: 0 amlodipine 10 mg Tablet 10 mg PO DAILY RF: 0 glipizide 5 mg Tablet 5 mg PO BID RF: 0 ibuprofen 200 mg Capsule 400 mg PO Q6H PRN (Reason: Breakthrough Pain, Moderate) RF: 0 gemfibrozil 600 mg Tablet 600 mg PO BID RF: 0 hydrochlorothiazide 25 mg Tablet 25 mg PO 1700 RF: 0 prednisone 5 mg Tablet 5 mg PO DAILY RF: 0 Referrals: Berto Curran MD [Primary Care Provider] -
[2019-08-25 21:09] LABS: Add Manual Diff / Slide Review NO; Basophils Absolute Auto 0 /uL (0-100); Basophils Percent Auto 0.6 % (0-2); Eosinophils Absolute Auto 100 /uL (0-450); Eosinophils Percent Auto 1.2 % (2-4); Hematocrit 35.7 % (41-53); Hemoglobin 11.9 g/dL (13.5-17.5); Lymphocytes Absolute Auto 600 /uL (1100-4500); Lymphocytes Percent Auto 13.1 % (25-40); Mean Corpuscular HGB Conc 33.4 % (30-36); Mean Corpuscular Hemoglobin 34.1 PG (26-34); Monocytes Absolute Auto 300 /uL (0-900); Monocytes Percent Auto 7.2 % (3-14); Neutrophils Absolute Auto 3300 /uL (1500-7000); Neutrophils Percent Auto 77.9 % (50-75); Platelet Count 214 X10^3/uL (150-400); White Blood Cell Count 4.3 X10^3/uL (4.5-11.0)
[2019-08-25 21:19] LABS: Alanine Aminotransferase 67 IU/L (21-72); Albumin 3.7 g/dL (3.5-5.0); Albumin Globulin Ratio 1.3 (1.0-2.8); Alkaline Phosphatase 132 U/L (38-126); Aspartate Aminotransferase 43 IU/L (17-59); BUN Creatinine Ratio 16.7 (6-22); Bilirubin Total 0.4 mg/dL (0.2-1.3); Blood Urea Nitrogen 10 mg/dL (9-20); Calcium 8.1 mg/dL (8.4-10.2); Carbon Dioxide 19 mmol/L (22-32); Chloride 109 mmol/L (98-107); Creatine Kinase 27 U/L (55-170); Estimated Glomerular Filt Rate > 60.0 mL/min (>60); Globulin 2.8 g/dL (1.7-4.1); Glucose 205 mg/dL (80-110); HEMOLYSIS < 15 (0-50); Potassium 3.9 mmol/L (3.4-5.1); Sodium 138 mmol/L (137-145); Total Protein 6.5 g/dL (6.3-8.2)
[2019-08-25 21:30] LABS: Troponin I < 0.012 ng/mL (0.01-0.034)
[2019-08-25 23:03] VITALS: BP 142/77; PULSE 81; RESP 26; O2SAT 96
--- NOTE | 2019-08-25 23:06 | PC.NURSE ---
Pt able to successfully ambulate independently with walker and steady gait approx 20 yards with RN at side.
== END 2019-08-25 23:03 | disposition home or self-care (01) ==
PROVIDERS: Emergency Provider Emergency Medicine; PCP Family Medicine
DX: M54.9 Dorsalgia, unspecified (principal)
CPT/HCPCS: 36415; 80053; 81003; 82550; 84484; 85025

== ENCOUNTER 2019-09-03 03:50 | Emergency (ER) | payer MEDICARE, OTHER, SELFPAY ==
[2019-08-22 16:03] VITALS: BMI 27.2
[2019-09-03 03:50] VITALS: BP 119/70; PULSE 87; RESP 15; TEMP 36.7; O2SAT 93; BMI 30.4
--- NOTE | 2019-09-03 03:55 | DI.CT.S_ITS ---
PROCEDURE: CT HEAD/BRAIN WO CON INDICATIONS: weakness TECHNIQUE: Noncontrast 4.5 mm thick angled axial sections acquired from the foramen magnum to the vertex, with coronal and sagittal reformats. For radiation dose reduction, the following was used: automated exposure control, adjustment of mA and/or kV according to patient size. COMPARISON: [facility], CT, CT HEAD/BRAIN WO CON, 08/14/2019, 14:35. FINDINGS: Image quality: Excellent. CSF spaces: Basal cisterns are patent. No extra-axial fluid collections. The ventricles are symmetric in size and shape. Brain: No intracranial bleeds or masses. There is cerebral volume loss for age, with resultant ventricular and sulcal prominence. There are periventricular and deep white matter chronic small vessel ischemic changes. There is intracranial internal carotid artery atherosclerosis. Skull and face: Calvarium and visualized facial bones appear intact, without suspicious lesions. Sinuses: Visualized sinuses and mastoids are clear. IMPRESSION: 1. No acute intracranial abnormalities. 2. Cerebral volume loss and chronic microvascular ischemic changes. No significant discrepancy with the drywall taper radiology preliminary report. Dictated by: Chelsea Gongora M.D. on 09/03/2019 at 7:40 Approved by: Chelsea Gongora M.D. on 09/03/2019 at 7:41
[2019-09-03 04:08] LABS: Add Manual Diff / Slide Review NO; Basophils Absolute Auto 100 /uL (0-100); Basophils Percent Auto 1.5 % (0-2); Eosinophils Absolute Auto 100 /uL (0-450); Eosinophils Percent Auto 3.1 % (2-4); Hematocrit 39.4 % (41-53); Hemoglobin 13.4 g/dL (13.5-17.5); Lymphocytes Absolute Auto 1500 /uL (1100-4500); Lymphocytes Percent Auto 34.3 % (25-40); Mean Corpuscular HGB Conc 33.9 % (30-36); Mean Corpuscular Hemoglobin 33.8 PG (26-34); Mean Corpuscular Volume 99.7 fL (80-100); Monocytes Absolute Auto 500 /uL (0-900); Monocytes Percent Auto 12.4 % (3-14); Neutrophils Absolute Auto 2100 /uL (1500-7000); Neutrophils Percent Auto 48.7 % (50-75); Platelet Count 312 X10^3/uL (150-400); Red Blood Cell Count 3.96 X10^6/uL (4.5-5.9); Red Cell Distribution Width 16.2 % (11.6-14.8); White Blood Cell Count 4.3 X10^3/uL (4.5-11.0)
[2019-09-03 04:16] LABS: Acetaminophen < 10 ug/mL (10-30); Alanine Aminotransferase 49 IU/L (21-72); Albumin 4.1 g/dL (3.5-5.0); Albumin Globulin Ratio 1.5 (1.0-2.8); Alkaline Phosphatase 81 U/L (38-126); Aspartate Aminotransferase 42 IU/L (17-59); BUN Creatinine Ratio 14.4 (6-22); Bilirubin Total 0.7 mg/dL (0.2-1.3); Blood Urea Nitrogen 13 mg/dL (9-20); Calcium 8.2 mg/dL (8.4-10.2); Carbon Dioxide 21 mmol/L (22-32); Chloride 104 mmol/L (98-107); Estimated Glomerular Filt Rate > 60.0 mL/min (>60); Ethanol (ETOH) < 10 mg/dL; Globulin 2.8 g/dL (1.7-4.1); Glucose 70 mg/dL (80-110); HEMOLYSIS 28 (0-50); Potassium 3.8 mmol/L (3.4-5.1); Salicylate < 1.0 mg/dL (<20); Sodium 140 mmol/L (137-145); Total Protein 6.9 g/dL (6.3-8.2)
[2019-09-03 04:27] LABS: Troponin I < 0.012 ng/mL (0.01-0.034)
[2019-09-03 04:32] LABS: Prolactin 29.4 ng/mL (3.7-17.9)
[2019-09-03 04:35] LABS: Prothrombin Time 11.8 SECONDS (10.1-12.7)
[2019-09-03 04:38] LABS: PTT Partial Thromboplastin Tim 38 SECONDS (26.4-36.2)
[2019-09-03 04:48] LABS: Lactate (Lactic Acid) 2.4 mmol/L (0.7-2.1)
--- NOTE | 2019-09-03 04:49 | ED.GENADULT ---
HPI - General Adult General Chief complaint: Diabetic Problem Stated complaint: Diabetic issue Time Seen by Provider: 09/03/19 03:52 Source: patient and EMS Mode of arrival: EMS Limitations: no limitations History of Present Illness HPI narrative: Patient is a 79-year-old male with history of diabetes hypertension hyperlipidemia presenting with increased weakness and confusion. He actually was admitted the hospital August 23 through . He was having recurrent falls. Now apparently his insulin is being adjusted. EMS arrived they state that he was extremely weak and confused. Glucose may have been as low as 55 however they got it at about 89. He was given orange juice. He is awake and alert and following some commands no focal deficits. He does complain of some back pain which he has complained of before there is no sign of trauma Related Data Home Medications Medication Instructions Recorded Confirmed Lantus U-100 Insulin 70 unit SUBCUT BID 12/29/18 08/22/19 ezetimibe [Zetia] 10 mg PO DAILY 12/29/18 08/22/19 lisinopril 40 mg PO DAILY 12/29/18 08/22/19 metformin 1,000 mg PO BID 12/29/18 08/22/19 metoprolol tartrate 100 mg PO BID 12/29/18 08/22/19 amlodipine 10 mg PO DAILY 08/22/19 08/22/19 gemfibrozil 600 mg PO BID 08/22/19 08/22/19 glipizide 5 mg PO BID 08/22/19 08/22/19 hydrochlorothiazide 25 mg PO 1700 08/22/19 08/22/19 ibuprofen 400 mg PO Q6H PRN 08/22/19 08/22/19 prednisone 5 mg PO DAILY 08/22/19 08/22/19 Previous Rx's Medication Instructions Recorded hydrocodone-acetaminophen 1 tab PO Q4-6H PRN #20 tab 07/31/19 lidocaine [Lidoderm] 1 patch TOP DAILY #15 each 07/31/19 Allergies Allergy/AdvReac Type Severity Reaction Status Date / Time No Known Drug Allergies Allergy Verified 08/22/19 10:15 Review of Systems Review of Systems ROS Unobtainable: All systems reviewed & are unremarkable except as noted in HPI and below Constitutional Constitutional: Denies chills, Denies fever(s), Reports frequent falls, Denies lethargy and Denies weakness ENT Ears, Nose, Mouth, and Throat: Denies dizziness Cardiovascular Cardiovascular: Denies chest pain, Denies syncope, Denies irregular heart rhythm, Denies lightheadedness, Denies palpitations, Denies dyspnea, Denies dyspnea on exertion and Denies orthopnea Respiratory Respiratory: Denies cough, Denies dyspnea, Denies dyspnea on exertion and Denies wheezing Genitourinary Genitourinary: Denies hematuria, Denies flank pain, Denies urinary incontinence and Denies urinary urgency Musculoskeletal Musculoskeletal: Denies back pain, Denies muscle weakness, Denies numbness and Denies tingling Neurologic Neurologic: Reports confusion, Denies dizziness, Denies syncope, Reports frequent falls, Denies numbness, Denies tingling and Denies weakness Psychiatric Psychiatric: Reports confusion Endocrine Endocrine: Denies palpitations Allergic/Immunologic Allergic/Immunologic: Denies wheezing Patient History Medical History Diabetes (Acute) Hyperlipidemia (Acute) Hypertension (Acute) Social History household members: spouse Smoking Status: Never smoker alcohol intake: never Substance Use Type: does not use Exam Initial Vital Signs Initial Vital Signs: Vital Signs Temperature 98.1 F 09/03/19 03:50 Pulse Rate 87 09/03/19 03:50 Respiratory Rate 15 09/03/19 03:50 Blood Pressure 119/70 09/03/19 03:50 Pulse Oximetry 93 09/03/19 03:50 GENERAL: Alert confused elderly male and in no acute distress. HEENT: Head atraumatic,EOMI, pupils reactive, face symmetric, moist mucous membranes CARDIOVASCULAR: Regular rate and rhythm without murmurs, rubs or gallops. RESPIRATORY: Breath sounds equal bilaterally, no wheezes rales or rhonchi. ABDOMEN: Soft, nontender. Normoactive bowel sounds all 4 quadrants. No guarding or rebound. EXTREMITIES: Normal range of motion, no clubbing or edema. Neurovascularly intact NEUROLOGICAL: Alert and oriented x2.Normal gait and speech. Cranial nerves II through XII grossly intact. Good [id number], good [id number], strength equal bilaterally, no dysarthria or aphasia, sensation in tact to soft touch bilaterally, no visual changes, no facial droop SKIN: Warm, dry, no laceration, no petechiae, no rashes or lesions. Course Orders Ordered: ED Orders 09/03/19 03:55 CT head/brain wo con Stat 09/03/19 04:00 Acetaminophen Stat Complete Blood Count AUTO DIFF Stat Comprehensive Metabolic Panel Stat Ethanol (ETOH) Stat Partial Thromboplastin Time Stat Prolactin Stat Prothrombin Time INR Stat Salicylate Stat Thyroid Stimulating Hormone Stat Troponin I Stat 09/03/19 04:04 EKG-12 Lead Stat 09/03/19 04:28 Blood Culture Stat Lactate (Lactic Acid) Stat 09/03/19 04:40 Urine Culture Stat Urine Drug Screen, Rapid Stat Vital Signs Vital signs: Vital Signs - 8 hr 09/03/19 03:50 09/03/19 05:09 Temperature 98.1 F Pulse Rate 87 90 Respiratory Rate 15 20 Blood Pressure 119/70 Blood Pressure [Left Arm] 133/84 Pulse Oximetry 93 95 Medical Decision Making Lab Data Result diagrams: 09/03/19 04:00 09/03/19 04:00 Labs: Lab Results 09/03/19 09/03/19 09/03/19 Range/Units 04:00 04:00 04:00 WBC 4.3 L (4.5-11.0) X10^3/uL RBC 3.96 L (4.5-5.9) X10^6/uL Hgb 13.4 L (13.5-17.5) g/dL Hct 39.4 L (41-53) % MCV 99.7 (80-100) fL MCH 33.8 (26-34) PG MCHC 33.9 (30-36) % RDW 16.2 H (11.6-14.8) % Plt Count 312 (150-400) X10^3/uL Neut % (Auto) 48.7 L (50-75) % Lymph % (Auto) 34.3 (25-40) % [place] % (Auto) 12.4 (3-14) % Eos % (Auto) 3.1 (2-4) % Baso % (Auto) 1.5 (0-2) % Neut # (Auto) 2100 (4788-9955) /uL Lymph # (Auto) 1500 (1927-2147) /uL [place] # (Auto) 500 (0-900) /uL Eos # (Auto) 100 (0-450) /uL Baso # (Auto) 100 (0-100) /uL PT 11.8 (10.1-12.7) SECONDS INR 1.0 (0.9-1.3) APTT 38 H (26.4-36.2) SECONDS Sodium 140 (137-145) mmol/L Potassium 3.8 (3.4-5.1) mmol/L Chloride 104 (98-107) mmol/L Carbon Dioxide 21 L (22-32) mmol/L BUN 13 (9-20) mg/dL Creatinine 0.90 (0.66-1.25) mg/dL Estimated GFR > 60.0 (>60) mL/min BUN/Creatinine Ratio 14.4 (6-22) Glucose 70 L D (80-110) mg/dL Lactate (0.7-2.1) mmol/L Calcium 8.2 L (8.4-10.2) mg/dL Total Bilirubin 0.7 (0.2-1.3) mg/dL AST 42 (17-59) IU/L ALT 49 (21-72) IU/L Alkaline Phosphatase 81 D (38-126) U/L Troponin I < 0.012 (0.01-0.034) ng/mL Total Protein 6.9 (6.3-8.2) g/dL Albumin 4.1 (3.5-5.0) g/dL Globulin 2.8 (1.7-4.1) g/dL Albumin/Globulin Ratio 1.5 (1.0-2.8) TSH (0.47-4.68) uIU/mL Prolactin 29.4 H (3.7-17.9) ng/mL Salicylates < 1.0 (<20) mg/dL U Morph 300 ng/mL cutoff (Negative) Ur Oxycodone Screen (Negative) Urine Methadone Screen (Negative) Acetaminophen < 10 L (10-30) ug/mL Ur Barbiturates Screen (Negative) U Tricyclic Antidepress (Negative) Ur Phencyclidine Scrn (Negative) Ur Amphetamines Screen (Negative) U Methamphetamines Scrn (Negative) Ur MDMA Scrn (Ecstasy) (Negative) U Benzodiazepines Scrn (Negative) Urine Cocaine Screen (Negative) U Marijuana (THC) Screen (Negative) Ethyl Alcohol < 10 ( - 10) mg/dL 1009/03/19 09/03/19 Range/Units 04:00 04:28 04:40 WBC (4.5-11.0) X10^3/uL RBC (4.5-5.9) X10^6/uL Hgb (13.5-17.5) g/dL Hct (41-53) % MCV (80-100) fL MCH (26-34) PG MCHC (30-36) % RDW (11.6-14.8) % Plt Count (150-400) X10^3/uL Neut % (Auto) (50-75) % Lymph % (Auto) (25-40) % [place] % (Auto) (3-14) % Eos % (Auto) (2-4) % Baso % (Auto) (0-2) % Neut # (Auto) (4426-4384) /uL Lymph # (Auto) (9801-6830) /uL [place] # (Auto) (0-900) /uL Eos # (Auto) (0-450) /uL Baso # (Auto) (0-100) /uL PT (10.1-12.7) SECONDS INR (0.9-1.3) APTT (26.4-36.2) SECONDS Sodium (137-145) mmol/L Potassium (3.4-5.1) mmol/L Chloride (98-107) mmol/L Carbon Dioxide (22-32) mmol/L BUN (9-20) mg/dL Creatinine (0.66-1.25) mg/dL Estimated GFR (>60) mL/min BUN/Creatinine Ratio (6-22) Glucose (80-110) mg/dL Lactate 2.4 H (0.7-2.1) mmol/L Calcium (8.4-10.2) mg/dL Total Bilirubin (0.2-1.3) mg/dL AST (17-59) IU/L ALT (21-72) IU/L Alkaline Phosphatase (38-126) U/L Troponin I (0.01-0.034) ng/mL Total Protein (6.3-8.2) g/dL Albumin (3.5-5.0) g/dL Globulin (1.7-4.1) g/dL Albumin/Globulin Ratio (1.0-2.8) TSH 3.11 (0.47-4.68) uIU/mL Prolactin (3.7-17.9) ng/mL Salicylates (<20) mg/dL U Morph 300 ng/mL cutoff Negative (Negative) Ur Oxycodone Screen Negative (Negative) Urine Methadone Screen Negative (Negative) Acetaminophen (10-30) ug/mL Ur Barbiturates Screen Negative (Negative) U Tricyclic Antidepress Positive H (Negative) Ur Phencyclidine Scrn Negative (Negative) Ur Amphetamines Screen Negative (Negative) U Methamphetamines Scrn Negative (Negative) Ur MDMA Scrn (Ecstasy) Negative (Negative) U Benzodiazepines Scrn Negative (Negative) Urine Cocaine Screen Negative (Negative) U Marijuana (THC) Screen Negative (Negative) Ethyl Alcohol ( - 10) mg/dL 09/03/19 Range/Units 07:00 WBC (4.5-11.0) X10^3/uL RBC (4.5-5.9) X10^6/uL Hgb (13.5-17.5) g/dL Hct (41-53) % MCV (80-100) fL MCH (26-34) PG MCHC (30-36) % RDW (11.6-14.8) % Plt Count (150-400) X10^3/uL Neut % (Auto) (50-75) % Lymph % (Auto) (25-40) % [place] % (Auto) (3-14) % Eos % (Auto) (2-4) % Baso % (Auto) (0-2) % Neut # (Auto) (5716-1115) /uL Lymph # (Auto) (3801-9825) /uL [place] # (Auto) (0-900) /uL Eos # (Auto) (0-450) /uL Baso # (Auto) (0-100) /uL PT (10.1-12.7) SECONDS INR (0.9-1.3) APTT (26.4-36.2) SECONDS Sodium (137-145) mmol/L Potassium (3.4-5.1) mmol/L Chloride (98-107) mmol/L Carbon Dioxide (22-32) mmol/L BUN (9-20) mg/dL Creatinine (0.66-1.25) mg/dL Estimated GFR (>60) mL/min BUN/Creatinine Ratio (6-22) Glucose (80-110) mg/dL Lactate 2.7 H (0.7-2.1) mmol/L Calcium (8.4-10.2) mg/dL Total Bilirubin (0.2-1.3) mg/dL AST (17-59) IU/L ALT (21-72) IU/L Alkaline Phosphatase (38-126) U/L Troponin I (0.01-0.034) ng/mL Total Protein (6.3-8.2) g/dL Albumin (3.5-5.0) g/dL Globulin (1.7-4.1) g/dL Albumin/Globulin Ratio (1.0-2.8) TSH (0.47-4.68) uIU/mL Prolactin (3.7-17.9) ng/mL Salicylates (<20) mg/dL U Morph 300 ng/mL cutoff (Negative) Ur Oxycodone Screen (Negative) Urine Methadone Screen (Negative) Acetaminophen (10-30) ug/mL Ur Barbiturates Screen (Negative) U Tricyclic Antidepress (Negative) Ur Phencyclidine Scrn (Negative) Ur Amphetamines Screen (Negative) U Methamphetamines Scrn (Negative) Ur MDMA Scrn (Ecstasy) (Negative) U Benzodiazepines Scrn (Negative) Urine Cocaine Screen (Negative) U Marijuana (THC) Screen (Negative) Ethyl Alcohol ( - 10) mg/dL Point of Care Testing Glucose POC 100 Point of care testing: Point of Care Testing Glucose POC [address] scan - head: Radiologist's impression: Preliminary report: No acute intracranial pathology. Age-appropriate cerebral volume loss with chronic microvascular gliosis in periventricular white matter ECG Data Attestation: I personally reviewed and interpreted this ECG as follows: Prior ECG tracings: available for review Interpretation: Sinus rhythm rate 88 p.r. interval [address] changes similar to previous EKG MDM Narrative Medical decision making narrative: I called and spoke with the . She said that he woke her up he turned over in bed and startled her. She did confirm that his glucose was 55. His speech was slurring. She called EMS right away was able to eat something get some orange juice. His now have completely resolved his glucose remains above 100 and stable. He still is slightly confused but this might be baseline for him previous reports report some mild dementia. He is given food here in the ED and ambulated without difficulty. waiting for . Discharge Plan Departure Patient Disposition: Home Clinical Impression: Hypoglycemia Discharge Date/Time: 09/03/19 08:15 Instructions: DI for Hypoglycemia Activity Restrictions/Additional Instructions: *You have been diagnosed with hypoglycemia *What to do: Recommend calling in speaking with her doctor about your Lantus medication. There will likely need to be some adjustments *Continue to take medications as directed *Follow up with your primary care provider in 2-3 days *Return to ER if you should have increased confusion, slurred speech, facial droop or any new, worsening or concerning symptoms Prescriptions: No Action hydrocodone-acetaminophen 5-325 mg tablet 1 tab PO Q4-6H PRN (Reason: pain) Qty: 20 RF: 0 lidocaine [Lidoderm] 5 % adhesive patch,medicated 1 patch TOP DAILY Qty: 15 RF: 0 metformin 500 mg Tablet 1,000 mg PO BID RF: 0 Lantus U-100 Insulin 100 unit/mL Solution 70 unit SUBCUT BID RF: 0 lisinopril 20 mg Tablet 40 mg PO DAILY RF: 0 ezetimibe [Zetia] 10 mg Tablet 10 mg PO DAILY RF: 0 metoprolol tartrate 25 mg Tablet 100 mg PO BID RF: 0 amlodipine 10 mg Tablet 10 mg PO DAILY RF: 0 glipizide 5 mg Tablet 5 mg PO BID RF: 0 ibuprofen 200 mg Capsule 400 mg PO Q6H PRN (Reason: Breakthrough Pain, Moderate) RF: 0 gemfibrozil 600 mg Tablet 600 mg PO BID RF: 0 hydrochlorothiazide 25 mg Tablet 25 mg PO 1700 RF: 0 prednisone 5 mg Tablet 5 mg PO DAILY RF: 0 Referrals: Berto Curran MD [Primary Care Provider] -
[2019-09-03 04:56] LABS: Thyroid Stimulating Hormone 3.11 uIU/mL (0.47-4.68)
[2019-09-03 05:09] VITALS: BP 133/84; PULSE 90; RESP 20; O2SAT 95
[2019-09-03 05:14] LABS: Ur Creatinine 50 (Normal); Ur Specific Gravity 1.015 (Normal); Urine Tetrahydrocannabinol Negative (Negative); Urine pH 5 (Normal)
[2019-09-03 05:15] LABS: UR Morphine/Opiate cutoff 300 Negative (Negative); Urine Amphetamines Negative (Negative); Urine Barbiturates Negative (Negative); Urine Benzodiazepines Negative (Negative); Urine Cocaine Negative (Negative); Urine MDMA Negative (Negative); Urine Methadone Negative (Negative); Urine Methamphetamines Negative (Negative); Urine Oxycodone Negative (Negative); Urine Phencyclidine Negative (Negative); Urine Tricyclic Antidepressant Positive (Negative)
[2019-09-03 06:35] LABS: Reflexed Lactate in 2 Hours Y
[2019-09-03 07:07] VITALS: PULSE 109; RESP 23; O2SAT 97
[2019-09-03 07:25] LABS: Lactate 2HR (Lactic Acid Rflx) 2.7 mmol/L (0.7-2.1)
[2019-09-03 08:15] VITALS: BP 98/65; PULSE 87; RESP 18; TEMP 36.8; O2SAT 96
== END 2019-09-03 08:15 | disposition home or self-care (01) ==
PROVIDERS: Emergency Provider Emergency Medicine; PCP Family Medicine
DX: E11.649 Type 2 diabetes mellitus with hypoglycemia without coma (principal); Z91.81 History of falling; R41.82 Altered mental status, unspecified
CPT/HCPCS: 36415; 70450; 80053; 80305; 80320; 80329; 82962; 83605; 84146; 84443; 84484; 85025; 85610; 85730; 87040; 87086; 93005; 99282; 99285; G0480

== ENCOUNTER 2019-09-07 13:10 | Emergency (ER) | payer MEDICARE, OTHER, SELFPAY ==
[2019-08-22 16:03] VITALS: BMI 27.2
[2019-09-07 13:10] VITALS: BP 110/72; PULSE 77; RESP 20; TEMP 37.1; O2SAT 93; BMI 27.2
--- NOTE | 2019-09-07 13:16 | PC.NURSE ---
blood sugar 61, orange juice with 2 packets of sugar added given to patient. pt tolerated well, drank without difficulty.
--- NOTE | 2019-09-07 13:17 | DI.RAD.S_ITS ---
PROCEDURE: XR CHEST 2V INDICATIONS: shortness of breath TECHNIQUE: 2 views of the chest were acquired. COMPARISON: [facility], CR, XR CHEST 2V, 08/22/2019, 10:28. FINDINGS: Surgical changes and devices: None. Lungs and pleura: Mild pulmonary vascular congestion is seen. No definite focal infiltrate. No pleural effusions or pneumothorax. Mediastinum: Tortuous thoracic aorta and aortic arch calcification is seen. Heart size is enlarged. Bones and chest wall: No suspicious bony abnormalities. Soft tissues appear unremarkable. IMPRESSION: Cardiomegaly and mild congestion. No definite focal infiltrate. No pleural effusion or pneumothorax. Dictated by: Jared Sanchez M.D. on 09/07/2019 at 13:41 Approved by: Jared Sanchez M.D. on 09/07/2019 at 13:43
[2019-09-07 13:23] VITALS: BP 109/66; PULSE 77; RESP 19; O2SAT 95
[2019-09-07 13:24] LABS: Add Manual Diff / Slide Review NO; Basophils Absolute Auto 0 /uL (0-100); Basophils Percent Auto 0.4 % (0-2); Eosinophils Absolute Auto 100 /uL (0-450); Eosinophils Percent Auto 2.7 % (2-4); Hematocrit 39.4 % (41-53); Hemoglobin 13.4 g/dL (13.5-17.5); Lymphocytes Absolute Auto 1100 /uL (1100-4500); Lymphocytes Percent Auto 33.8 % (25-40); Mean Corpuscular Hemoglobin 33.9 PG (26-34); Mean Corpuscular Volume 99.5 fL (80-100); Monocytes Absolute Auto 500 /uL (0-900); Monocytes Percent Auto 15.6 % (3-14); Neutrophils Absolute Auto 1600 /uL (1500-7000); Neutrophils Percent Auto 47.5 % (50-75); Platelet Count 395 X10^3/uL (150-400); Red Blood Cell Count 3.96 X10^6/uL (4.5-5.9); Red Cell Distribution Width 15.8 % (11.6-14.8); White Blood Cell Count 3.3 X10^3/uL (4.5-11.0)
[2019-09-07 13:35] LABS: Alanine Aminotransferase 49 IU/L (21-72); Albumin 4.1 g/dL (3.5-5.0); Albumin Globulin Ratio 1.4 (1.0-2.8); Alkaline Phosphatase 71 U/L (38-126); Aspartate Aminotransferase 49 IU/L (17-59); Bilirubin Total 0.6 mg/dL (0.2-1.3); Blood Urea Nitrogen 15 mg/dL (9-20); Carbon Dioxide 22 mmol/L (22-32); Chloride 102 mmol/L (98-107); Estimated Glomerular Filt Rate > 60.0 mL/min (>60); Globulin 2.9 g/dL (1.7-4.1); Glucose 72 mg/dL (80-110); HEMOLYSIS 35 (0-50); Potassium 3.9 mmol/L (3.4-5.1); Sodium 139 mmol/L (137-145)
--- NOTE | 2019-09-07 13:45 | ED.WEAKNESS ---
HPI - Weakness General Chief complaint: Weakness Stated complaint: Weakness Time Seen by Provider: 09/07/19 13:10 Source: patient and EMS Mode of arrival: EMS History of Present Illness HPI Narrative: Patient is a 79-year-old male. I have evaluated him in the emergency department in the past. I have admitted him in the hospital earlier this month for weakness and shortness of breath. He had a couple days stay here in the emergency department was discharged home with was reported to be PT/OT and home nursing. He was seen in the emergency department the day he was discharged from the ER for fall and was discharged home. He has been seen 1 time since then for what appears to be hypoglycemic episode. This was the day after he followed up with his primary doctor. He is now emergency department again for weakness, hypoglycemia, and generally not feeling very well. None 1 was called by the patient's with whom he lives. Patient states he does not know why he is in the emergency department. No specific complaints other than he just does not feel very well. States that he does not know about his medications. Does not know if home health has been out to see him. Related Data Home Medications Medication Instructions Recorded Confirmed Lantus U-100 Insulin 70 unit SUBCUT BID 12/29/18 09/07/19 ezetimibe [Zetia] 10 mg PO DAILY 12/29/18 09/07/19 amlodipine 10 mg PO DAILY 08/22/19 09/07/19 gemfibrozil 600 mg PO BID 08/22/19 09/07/19 hydrochlorothiazide 25 mg PO DAILY 08/22/19 09/07/19 ibuprofen 400 mg PO Q6H PRN 08/22/19 09/07/19 glipizide 5 mg PO BID 09/07/19 09/07/19 ketorolac 10 mg PO Q6H PRN 09/07/19 09/07/19 lisinopril 40 mg PO DAILY 09/07/19 09/07/19 metformin 1,000 mg PO BID 09/07/19 09/07/19 metoprolol tartrate 100 mg PO BID 09/07/19 09/07/19 prednisone 20 mg PO DAILY 09/07/19 Previous Rx's Medication Instructions Recorded hydrocodone-acetaminophen 1 tab PO Q4-6H PRN #20 tab 07/31/19 lidocaine [Lidoderm] 1 patch TOP DAILY #15 each 07/31/19 Allergies Allergy/AdvReac Type Severity Reaction Status Date / Time No Known Drug Allergies Allergy Verified 09/07/19 13:10 Review of Systems Constitutional Constitutional: Reports fatigue, Reports frequent falls, Denies headache(s), Reports lethargy and Reports malaise ENT Ears, Nose, Mouth, and Throat: Denies headache(s) Cardiovascular Cardiovascular: Denies chest pain and Denies dyspnea Respiratory Respiratory: Denies dyspnea Gastrointestinal Gastrointestinal: Denies abdominal pain Musculoskeletal Musculoskeletal: Reports muscle weakness Integumentary/Breasts Skin/Breast: Denies lesions and Denies rash Neurologic Neurologic: Denies behavioral changes, Reports frequent falls and Denies headache(s) Psychiatric Psychiatric: Denies behavioral changes Endocrine Endocrine: Reports fatigue Hematologic/Lymphatic Hematologic/Lymphatic: Denies easy bleeding and Denies easy bruising Patient History Medical History Degenerative disc disease, lumbar (Inactive) Diabetes (Acute) WELLER (dyspnea on exertion) (Inactive) Hyperlipidemia (Acute) Hypertension (Acute) Social History household members: spouse Smoking Status: Never smoker alcohol intake: never Substance Use Type: does not use Exam Initial Vital Signs Initial Vital Signs: Vital Signs Temperature 98.8 F 09/07/19 13:10 Pulse Rate 77 09/07/19 13:10 Respiratory Rate 20 09/07/19 13:10 Blood Pressure 110/72 09/07/19 13:10 Pulse Oximetry 93 09/07/19 13:10 Const General: cooperative, well groomed and No acute distress Orientation: alert, awake and confused HENMT Head: normal to inspection and normocephalic Resp Effort & Inspection: normal respiratory effort Auscultation: clear to auscultation bilaterally Cardio Rate: regular rate Rhythm: regular rhythm GI Inspection: non-distended Palpation: soft, No firm and No tender Skin Lesions: no lesions Rashes: no rashes Neuro General: alert, awake and oriented x3 Speech: speech normal Motor: muscle tone normal throughout Sensory Exam: no sensory deficits noted Extrem General: normal to inspection and capillary refill normal Psych Appearance: grossly normal and well kempt Scores GCS [place] coma scale eye opening: Spontaneous [place] coma scale verbal response: Confused [place] coma scale motor response: Obey commands [place] coma scale total score: 14 Course Orders Ordered: ED Orders 09/07/19 13:15 Complete Blood Count AUTO DIFF Stat Comprehensive Metabolic Panel Stat 09/07/19 13:17 XR chest 2V Stat EKG-12 Lead Stat Measure peak expiratory flow ONCE RT Consult Eval and Treat Now 09/07/19 13:49 Consult to [facility] - Radio Electrician Stat 09/07/19 14:04 CT head/brain wo con Stat Vital Signs Vital signs: Vital Signs - 8 hr 09/07/19 13:10 09/07/19 13:23 09/07/19 14:17 Temperature 98.8 F Pulse Rate 77 77 71 Respiratory Rate 20 19 18 Blood Pressure 110/72 Blood Pressure [Left Arm] 109/66 102/52 L Pulse Oximetry 93 95 96 09/07/19 14:46 09/07/19 15:10 09/07/19 15:15 Temperature Pulse Rate 82 70 80 Respiratory Rate 18 18 20 Blood Pressure Blood Pressure [Left Arm] 117/76 125/72 Pulse Oximetry 96 94 95 MDM - Weakness Lab Data Attestation: I reviewed the patient's lab results. Result diagrams: 09/07/19 13:15 09/07/19 13:15 Labs: Lab Results 09/07/19 09/07/19 09/07/19 Range/Units 13:15 13:15 13:15 WBC 3.3 L (4.5-11.0) X10^3/uL RBC 3.96 L (4.5-5.9) X10^6/uL Hgb 13.4 L (13.5-17.5) g/dL Hct 39.4 L (41-53) % MCV 99.5 (80-100) fL MCH 33.9 (26-34) PG MCHC 34.0 (30-36) % RDW 15.8 H (11.6-14.8) % Plt Count 395 (150-400) X10^3/uL Neut % (Auto) 47.5 L (50-75) % Lymph % (Auto) 33.8 (25-40) % Gove % (Auto) 15.6 H (3-14) % Eos % (Auto) 2.7 (2-4) % Baso % (Auto) 0.4 (0-2) % Neut # (Auto) 1600 (1855-4597) /uL Lymph # (Auto) 1100 (8278-3330) /uL Gove # (Auto) 500 (0-900) /uL Eos # (Auto) 100 (0-450) /uL Baso # (Auto) 0 (0-100) /uL Sodium 139 (137-145) mmol/L Potassium 3.9 (3.4-5.1) mmol/L Chloride 102 (98-107) mmol/L Carbon Dioxide 22 (22-32) mmol/L BUN 15 (9-20) mg/dL Creatinine 1.00 (0.66-1.25) mg/dL Estimated GFR > 60.0 (>60) mL/min BUN/Creatinine Ratio 15.0 (6-22) Glucose 72 L (80-110) mg/dL Lactate Cancelled Calcium 8.0 L (8.4-10.2) mg/dL Total Bilirubin 0.6 (0.2-1.3) mg/dL AST 49 (17-59) IU/L ALT 49 (21-72) IU/L Alkaline Phosphatase 71 (38-126) U/L Total Protein 7.0 (6.3-8.2) g/dL Albumin 4.1 (3.5-5.0) g/dL Globulin 2.9 (1.7-4.1) g/dL Albumin/Globulin Ratio 1.4 (1.0-2.8) Point of Care Testing Glucose POC 99 Urine Dip Bedside Urine Glucose Negative Bedside Urine Bilirubin - Negative Bedside Urine Ketone - Negative Urine Specific [place] 1.020 Bedside Urine Occult Blood - Negative Bedside Urine pH 5.5 Bedside Urine Protein +/- 15 Bedside Urine Urobilinogen - Negative Bedside Urine Nitrite - Negative Bedside Urine Leukocytes - Negative Esterase ECG Data Attestation: I personally reviewed and interpreted this ECG as follows: Prior ECG tracings: not available for review Interpretation: Sinus rhythm Ventricular rate is 74 Left axis deviation Nonspecific ST T wave changes MDM Narrative Medical decision making narrative: Patient was hypoglycemic per EMS. Blood sugar was in the 60s upon arrival here. He was given food to eat. This did improve. He did seem to feel well afterwards. Was able to ambulate around the emergency department with a walker with only slight shortness of breath. Nursing was able to talk to the patient's who stated that prior to EMS arrival at their house she give the patient some yogurt. Patient's stated that the patient ?demanded ?a shot of insulin which she gave him. Most likely this caused his blood sugar to decrease. I did discuss the case with Dr. Mullins who is on-call for the patient's primary doctor. His primary doctor was not in the office. She was able to look up the note from the of this month. Appears at that time the decision was made to stop his night insulin dose. Unsure if the patient has actually done this or not. I do suspect that the patient's symptoms are related to his medication dosing at home. Social Work also saw the patient here in the emergency department. The talk with the patient's . The was once again given resources and also medicate applications. After talking with Dr. Mullins we were able to get the patient scheduled for an appointment tomorrow morning at 1000 hours with his primary provider. We will have the patient stop all of his insulin altogether. He will continue his metformin. I feel that him being hyperglycemic is better than him being hypoglycemic under the current situations. Patient and the expressed understanding and agreement this plan. Discharge Plan Departure Patient Disposition: Home Clinical Impression: Hypoglycemia Instructions: DI for Hypoglycemia Activity Restrictions/Additional Instructions: After talking with Dr. Mullins today who was on-call for Dr. Curran. We feel that it is best if you stop taking all of your insulin. If you have not already done so also recommend that you stop the glipizide. I do recommend you continue with the metformin. I was able to get you scheduled for an appointment tomorrow 09/08/[address] Curran at the [facility]. Continue the rest your medications as directed. Return to the emergency department for any new or worsening symptoms Prescriptions: No Action hydrocodone-acetaminophen 5-325 mg tablet 1 tab PO Q4-6H PRN (Reason: pain) Qty: 20 RF: 0 lidocaine [Lidoderm] 5 % adhesive patch,medicated 1 patch TOP DAILY Qty: 15 RF: 0 prednisone 10 mg tablet 20 mg PO DAILY RF: 0 metoprolol tartrate 100 mg tablet 100 mg PO BID RF: 0 ketorolac 10 mg tablet 10 mg PO Q6H PRN (Reason: pain) RF: 0 metformin 1,000 mg tablet 1,000 mg PO BID RF: 0 lisinopril 40 mg tablet 40 mg PO DAILY RF: 0 glipizide 5 mg tablet 5 mg PO BID RF: 0 Lantus U-100 Insulin 100 unit/mL Solution 70 unit SUBCUT BID RF: 0 ezetimibe [Zetia] 10 mg Tablet 10 mg PO DAILY RF: 0 amlodipine 10 mg Tablet 10 mg PO DAILY RF: 0 ibuprofen 200 mg Capsule 400 mg PO Q6H PRN (Reason: Breakthrough Pain, Moderate) RF: 0 gemfibrozil 600 mg Tablet 600 mg PO BID RF: 0 hydrochlorothiazide 25 mg Tablet 25 mg PO DAILY RF: 0 Referrals: Berto Curran MD [Primary Care Provider] -
--- NOTE | 2019-09-07 14:04 | DI.CT.S_ITS ---
PROCEDURE: CT HEAD/BRAIN WO CON INDICATIONS: Altered mental status. Weakness TECHNIQUE: Noncontrast 4.5 mm thick angled axial sections acquired from the foramen magnum to the vertex, with coronal and sagittal reformats. For radiation dose reduction, the following was used: automated exposure control, adjustment of mA and/or kV according to patient size. COMPARISON: [facility], CT, CT HEAD/BRAIN WO CON, 09/03/2019, 3:58. FINDINGS: Image quality: Diagnostic. CSF spaces: Basal cisterns are patent. No extra-axial fluid collections. Ventricles are prominent with corresponding parenchymal volume loss. Brain: No midline shift. No intracranial masses or hemorrhage. Shine-white matter interface is normal. Periventricular white matter low attenuation is identified within the supratentorial parenchyma which has a similar appearance to the previous study. Skull and face: Calvarium and visualized facial bones are intact, without suspicious lesions. Sinuses: Visualized sinuses and mastoids are clear. IMPRESSION: 1. Stable head CT. No acute intracranial hemorrhage. 2. Chronic small vessels ischemic changes improving volume loss are similar to prior exam. Dictated by: Yaw Levi M.D. on 09/07/2019 at 13:10 Approved by: Yaw Levi M.D. on 09/07/2019 at 13:11
[2019-09-07 14:17] VITALS: BP 102/52; PULSE 71; RESP 18; O2SAT 96
[2019-09-07 14:46] VITALS: BP 117/76; PULSE 82; RESP 18; O2SAT 96
[2019-09-07 15:10] VITALS: BP 125/72; PULSE 70; RESP 18; O2SAT 94
[2019-09-07 15:15] VITALS: PULSE 80; RESP 20; O2SAT 95
--- NOTE | 2019-09-07 15:19 | PC.NURSE ---
verbalized understanding of discontinuation of Lantus insulin. Will only be on metformin for blood sugar control until primary provider makes any other decisions. BLENDING LINE ATTENDANT / care mgt in w/ pt and family to discuss ongoing caregiver concerns. Please see Caremgt note.
--- NOTE | 2019-09-07 16:08 | CM.DPNOTE ---
Addendum entered by Michelle Rothman R.N. 09/07/19 16:34: Met with ROE Lanette marilin in the ED to asses patient. Michelle Rothman RN Original Note: DCP: CM spent 90 minutes working on case.. CM met with patient and his in the ED at patients bedside. Patient is a 79 yr old male who presented to the ED for Hypoglycemia. Patient has been to the ED 4 times in the last month and had an acute obs stay on 08/23/2019. Patient's PCP Dr. Curran was contacted and a f/u ED appointment was scheduled for tomorrow 09/08/2019 @ 10am. Patient and patients were notified and agreed to the PCP appt. Patients (ginny) stated she lives in a two story house and it makes it difficult to care for the patient when he isn't mobile. ED staff ambulated patient around the ED and determined he was fine with ambulation. Patient has been having difficulty managing his DM medications and patients helps with this. Patient was on 70units of lantus two times a day as well as PO metformin. ED doctor spoke with patients PCP and they determined to stop patients insulin injections at this time and only have PO metformin currently for managing patients DM. Patient and patients stated understanding to nurse while CM was in the room. Patient has HH through [facility] set up from last hospital stay on 08/23/2019. CM contacted [facility] at [phone] and spoke with patient nurse (RN) Jason Lagunas and he as an appointment with them set up for tomorrow 09/08/2019 @ 1pm with home based PT set up to follow that appointment. CM let patient know of scheduled appointments with [facility] and PCP. Patient stated understanding. OSMAN spoke to the patient and the patients (Ginny) about options for respite stays at care facilities. Patients stated she wasn't interested in that option currently but might be in the future. OSMAN gave information to patient about senior resources as well as an application for Medicaid to see if they qualify for some resources through medicaid like [facility] and dental care that could assist the patient in the future with managing his health care needs. Michelle Rothman RN
== END 2019-09-07 15:42 | disposition home or self-care (01) ==
PROVIDERS: Emergency Provider Emergency Medicine; PCP Family Medicine
DX: E16.2 Hypoglycemia, unspecified (principal); R06.02 Shortness of breath; R41.82 Altered mental status, unspecified; R53.1 Weakness
CPT/HCPCS: 36415; 70450; 71046; 80053; 81003; 82962; 85025; 93005; 93010; 99283; 99285

== ENCOUNTER → 2019-09-20 13:34 | Outpatient (CLI) | payer MEDICARE, OTHER, SELFPAY ==
[2019-08-22 16:03] VITALS: BMI 27.2
[2019-09-20 14:59] LABS: Hematocrit 41.5 % (41-53); Hemoglobin 13.9 g/dL (13.5-17.5); Mean Corpuscular HGB Conc 33.5 % (30-36); Mean Corpuscular Hemoglobin 33.4 PG (26-34); Mean Corpuscular Volume 99.5 fL (80-100); Platelet Count 285 X10^3/uL (150-400); Red Blood Cell Count 4.17 X10^6/uL (4.5-5.9); Red Cell Distribution Width 15.6 % (11.6-14.8); White Blood Cell Count 4.1 X10^3/uL (4.5-11.0)
[2019-09-20 15:48] LABS: Blood Urea Nitrogen 9 mg/dL (9-20); Calcium 8.9 mg/dL (8.4-10.2); Carbon Dioxide 24 mmol/L (22-32); Chloride 99 mmol/L (98-107); Estimated Glomerular Filt Rate > 60.0 mL/min (>60); Glucose 170 mg/dL (80-110); HEMOLYSIS < 15 (0-50); Potassium 4.1 mmol/L (3.4-5.1); Sodium 138 mmol/L (137-145)
[2019-09-20 15:57] LABS: Creatinine Urine Random 99.1 mg/dL; Protein (Total) Urine Random 37 mg/dL (0-12); Protein Creatinine Ratio Urine 0.37 GRAM/24H
== END ==
PROVIDERS: PCP Family Medicine; Visit Provider Student in an Organized Health Care Education/Training Program
DX: N05.9 Unspecified nephritic syndrome with unspecified morphologic changes (principal); D70.9 Neutropenia, unspecified; D63.1 Anemia in chronic kidney disease
CPT/HCPCS: 36415; 80048; 82570; 84156; 85027

== ENCOUNTER → 2020-01-03 16:32 | Outpatient (CLI) | payer MEDICARE, OTHER, SELFPAY ==
[2019-08-22 16:03] VITALS: BMI 27.2
[2020-01-03 18:02] LABS: Hematocrit 41.2 % (41-53); Hemoglobin 14.4 g/dL (13.5-17.5); Mean Corpuscular HGB Conc 34.9 % (30-36); Mean Corpuscular Hemoglobin 31.6 PG (26-34); Mean Corpuscular Volume 90.8 fL (80-100); Platelet Count 235 X10^3/uL (150-400); Red Blood Cell Count 4.54 X10^6/uL (4.5-5.9); Red Cell Distribution Width 13.8 % (11.6-14.8); White Blood Cell Count 3.7 X10^3/uL (4.5-11.0)
[2020-01-03 18:26] LABS: BUN Creatinine Ratio 21.7 (6-22); Blood Urea Nitrogen 13 mg/dL (9-20); Calcium 9.6 mg/dL (8.4-10.2); Carbon Dioxide 22 mmol/L (22-32); Chloride 104 mmol/L (98-107); Estimated Glomerular Filt Rate > 60.0 mL/min (>60); Glucose 250 mg/dL (80-110); HEMOLYSIS < 15 (0-50); Potassium 4.1 mmol/L (3.4-5.1); Sodium 141 mmol/L (137-145)
[2020-01-03 18:51] LABS: Protein (Total) Urine Random 142 mg/dL (0-12); Protein Creatinine Ratio Urine 0.88 GRAM/24H
[2020-01-03 18:56] LABS: Thyroid Stimulating Hormone 2.11 uIU/mL (0.47-4.68)
== END ==
PROVIDERS: PCP Family Medicine; Referring Provider Student in an Organized Health Care Education/Training Program; Visit Provider Student in an Organized Health Care Education/Training Program
DX: N05.9 Unspecified nephritic syndrome with unspecified morphologic changes (principal); D70.9 Neutropenia, unspecified; D63.1 Anemia in chronic kidney disease; R80.9 Proteinuria, unspecified
CPT/HCPCS: 36415; 80048; 82570; 84156; 84443; 85027

== ENCOUNTER → 2020-09-08 14:23 | Outpatient (CLI) | payer MEDICARE, OTHER, SELFPAY ==
[2019-08-22 16:03] VITALS: BMI 27.2
[2020-09-08 15:32] LABS: Hematocrit 40.7 % (41-53); Hemoglobin 14.2 g/dL (13.5-17.5); Mean Corpuscular HGB Conc 34.9 % (30-36); Mean Corpuscular Hemoglobin 31.4 PG (26-34); Mean Corpuscular Volume 89.8 fL (80-100); Platelet Count 233 X10^3/uL (150-400); Red Blood Cell Count 4.54 X10^6/uL (4.5-5.9); Red Cell Distribution Width 14.5 % (11.6-14.8)
[2020-09-08 15:45] LABS: BUN Creatinine Ratio 17.3 (6-22); Blood Urea Nitrogen 13 mg/dL (9-20); Calcium 9.2 mg/dL (8.4-10.2); Carbon Dioxide 26 mmol/L (22-32); Chloride 101 mmol/L (98-107); Estimated Glomerular Filt Rate > 60.0 mL/min (>60); Glucose 272 mg/dL (80-110); HEMOLYSIS < 15 (0-50); Potassium 4.4 mmol/L (3.4-5.1); Sodium 137 mmol/L (137-145)
== END ==
PROVIDERS: PCP Family Medicine; Referring Provider Student in an Organized Health Care Education/Training Program; Visit Provider Student in an Organized Health Care Education/Training Program
DX: N05.9 Unspecified nephritic syndrome with unspecified morphologic changes (principal); D70.9 Neutropenia, unspecified; D63.1 Anemia in chronic kidney disease; R80.9 Proteinuria, unspecified
CPT/HCPCS: 36415; 80048; 85027

== ENCOUNTER → 2020-09-28 16:33 | Outpatient (CLI) | payer MEDICARE, OTHER, SELFPAY ==
[2019-08-22 16:03] VITALS: BMI 27.2
--- NOTE | 2020-09-28 | DI.RAD.S_ITS ---
PROCEDURE: XR SHOULDER RT MIN 2V INDICATIONS: Right shoulder pain TECHNIQUE: 3 views of the shoulder were acquired. COMPARISON: None. FINDINGS: Bones: No fracture . Moderate shoulder joint degeneration. Soft tissues: No suspicious soft tissue calcifications. IMPRESSION: Moderate shoulder joint degeneration. If the patient's pain or other symptoms persist, consider further evaluation with MRI Dictated by: Tay Aranda M.D. on 09/29/2020 at 9:35 Approved by: Tay Aranda M.D. on 09/29/2020 at 10:16
== END ==
PROVIDERS: PCP Student in an Organized Health Care Education/Training Program; Referring Provider Student in an Organized Health Care Education/Training Program; Visit Provider Student in an Organized Health Care Education/Training Program
DX: M25.511 Pain in right shoulder (principal); M19.011 Primary osteoarthritis, right shoulder
CPT/HCPCS: 73030

== ENCOUNTER 2020-12-07 00:08 | Emergency (ER) | payer MEDICARE, OTHER, SELFPAY ==
[2019-08-22 16:03] VITALS: BMI 27.2
[2020-12-07 00:20] VITALS: BP 163/98; PULSE 105; RESP 17; TEMP 36.7; O2SAT 98; BMI 25.8
--- NOTE | 2020-12-07 00:43 | ED.GENADULT ---
HPI - General Adult General Chief complaint: Skin/Abscess/Foreign Body Stated complaint: diabetes, rash under right arm Time Seen by Provider: 12/07/20 00:13 Source: patient and family Mode of arrival: Ambulatory Limitations: no limitations History of Present Illness HPI narrative: Patient is an 80-year-old male. He is an insulin-dependent diabetic is here with his for evaluation of a rash in his right armpit. Patient's states that he does not shower often. He does keep his right arm tucked in secondary to a shoulder injury in the past and wears a sling. She was going to give him a shower this evening when she noted redness in his right armpit. They have not tried anything for symptoms prior to arrival. Related Data Home Medications Medication Instructions Recorded Confirmed Lantus U-100 Insulin 70 unit SUBCUT BID 12/29/18 09/07/19 ezetimibe [Zetia] 10 mg PO DAILY 12/29/18 09/07/19 amlodipine 10 mg PO DAILY 08/22/19 09/07/19 gemfibrozil 600 mg PO BID 08/22/19 09/07/19 hydrochlorothiazide 25 mg PO DAILY 08/22/19 09/07/19 ibuprofen 400 mg PO Q6H PRN 08/22/19 09/07/19 glipizide 5 mg PO BID 09/07/19 09/07/19 ketorolac 10 mg PO Q6H PRN 09/07/19 09/07/19 lisinopril 40 mg PO DAILY 09/07/19 09/07/19 metformin 1,000 mg PO BID 09/07/19 09/07/19 metoprolol tartrate 100 mg PO BID 09/07/19 09/07/19 prednisone 20 mg PO DAILY 09/07/19 Previous Rx's Medication Instructions Recorded hydrocodone-acetaminophen 1 tab PO Q4-6H PRN #20 tab 07/31/19 lidocaine [Lidoderm] 1 patch TOP DAILY #15 each 07/31/19 nystatin 1 applic TOPICAL TID #30 g 12/07/20 Allergies Allergy/AdvReac Type Severity Reaction Status Date / Time No Known Drug Allergies Allergy Verified 09/07/19 13:10 Review of Systems Constitutional Constitutional: Denies fever(s) Integumentary/Breasts Comments: Rash right armpit Neurologic Neurologic: Denies behavioral changes Psychiatric Psychiatric: Denies behavioral changes Hematologic/Lymphatic On Anticoagulants: No Allergic/Immunologic Allergic/Immunologic: Denies urticaria Patient History Medical History Degenerative disc disease, lumbar Diabetes WELLER (dyspnea on exertion) Hyperlipidemia Hypertension Insomnia Obstructive sleep apnea Snoring Social History household members: spouse Smoking Status: Never smoker alcohol intake: never Smoking Status: Never smoker Substance Use Type: does not use Exam Initial Vital Signs Initial Vital Signs: Vital Signs Temperature 98.1 F 12/07/20 00:20 Pulse Rate 105 H 12/07/20 00:20 Respiratory Rate 17 12/07/20 00:20 Blood Pressure 163/98 H 12/07/20 00:20 Pulse Oximetry 98 12/07/20 00:20 Const General: cooperative and comfortable Limitations: mental status not altered HENMT Head: normal to inspection and normocephalic Skin Other: Patient has beefy red skin located in the right armpit has the appearance of a yeast infection. Extrem Other: Limited range of motion right shoulder secondary to discomfort this is not new. Psych Appearance: well kempt Course Vital Signs Vital signs: Vital Signs - 8 hr 12/07/20 00:20 12/07/20 00:57 Temperature 98.1 F Pulse Rate 105 H 102 H Respiratory Rate 17 16 Blood Pressure 163/98 H 128/87 Pulse Oximetry 98 94 Medical Decision Making MDM Narrative Medical decision making narrative: The physical exam is very consistent with a yeast infection his right armpit. This is most likely secondary to the fact that he keeps his arm tucked in closest body secondary to a shoulder injury. There does not appear to be any signs of cellulitis over the area. Will treat with topical cream for now. They were given other instructions thickened tried at home to try to keep the area as clean and dry as possible. They were given return precautions. They expressed understanding and agreement. Discharge Plan Departure Patient Disposition: Home Clinical Impression: Yeast infection of the skin Instructions: DI for Yeast Infection-Skin Activity Restrictions/Additional Instructions: Continue all of your medications as directed. Prescription for antifungal cream was electronically transmitted to the pharmacy [facility]. Please use it has directed. Also recommend that you try to keep your right armpit as clean and dry as possible like we discussed. Contact your primary provider for follow-up. Return to the emergency department for any new or worsening symptoms Prescriptions: New nystatin 100,000 unit/gram cream 1 applic topical TID Qty: 30 RF: 2 No Action hydrocodone-acetaminophen 5-325 mg tablet 1 tab PO Q4-6H PRN (Reason: pain) Qty: 20 RF: 0 lidocaine [Lidoderm] 5 % adhesive patch,medicated 1 patch TOP DAILY Qty: 15 RF: 0 prednisone 10 mg tablet 20 mg PO DAILY RF: 0 metoprolol tartrate 100 mg tablet 100 mg PO BID RF: 0 ketorolac 10 mg tablet 10 mg PO Q6H PRN (Reason: pain) RF: 0 metformin 1,000 mg tablet 1,000 mg PO BID RF: 0 lisinopril 40 mg tablet 40 mg PO DAILY RF: 0 glipizide 5 mg tablet 5 mg PO BID RF: 0 Lantus U-100 Insulin 100 unit/mL Solution 70 unit SUBCUT BID RF: 0 ezetimibe [Zetia] 10 mg Tablet 10 mg PO DAILY RF: 0 amlodipine 10 mg Tablet 10 mg PO DAILY RF: 0 ibuprofen 200 mg Capsule 400 mg PO Q6H PRN (Reason: Breakthrough Pain, Moderate) RF: 0 gemfibrozil 600 mg Tablet 600 mg PO BID RF: 0 hydrochlorothiazide 25 mg Tablet 25 mg PO DAILY RF: 0 Referrals: Milly Simpson MD [Primary Care Provider] -
[2020-12-07 00:57] VITALS: BP 128/87; PULSE 102; RESP 16; O2SAT 94
== END 2020-12-07 00:55 | disposition home or self-care (01) ==
PROVIDERS: Emergency Provider Emergency Medicine; PCP Student in an Organized Health Care Education/Training Program
DX: B37.2 Candidiasis of skin and nail (principal); E11.9 Type 2 diabetes mellitus without complications; Z79.4 Long term (current) use of insulin; E78.5 Hyperlipidemia, unspecified; I10 Essential (primary) hypertension
CPT/HCPCS: 99281

== ENCOUNTER → 2022-02-12 16:09 | Outpatient (CLI) | payer MEDICARE, OTHER, SELFPAY ==
[2019-08-22 16:03] VITALS: BMI 27.2
[2022-02-12 17:12] LABS: Hemoglobin A1C% w Est Avg Glu 7.6 % (4.0-6.0)
== END ==
PROVIDERS: PCP Student in an Organized Health Care Education/Training Program; Referring Provider Family Medicine; Visit Provider Family Medicine
DX: E11.9 Type 2 diabetes mellitus without complications (principal)
CPT/HCPCS: 36415; 83036

== ENCOUNTER → 2022-04-15 15:52 | Outpatient (CLI) | payer MEDICARE, OTHER, SELFPAY ==
[2019-08-22 16:03] VITALS: BMI 27.2
[2022-04-15 16:48] LABS: Add Manual Diff / Slide Review NO; Basophils Absolute Auto 100 /uL (0-100); Basophils Percent Auto 1.1 % (0-2); Eosinophils Absolute Auto 100 /uL (0-450); Eosinophils Percent Auto 2.9 % (2-4); Hematocrit 39.2 % (41-53); Hemoglobin 13.6 g/dL (13.5-17.5); Lymphocytes Absolute Auto 1300 /uL (1100-4500); Mean Corpuscular HGB Conc 34.6 % (30-36); Mean Corpuscular Hemoglobin 31.2 PG (26-34); Mean Corpuscular Volume 90.2 fL (80-100); Monocytes Absolute Auto 400 /uL (0-900); Monocytes Percent Auto 8.1 % (3-14); Neutrophils Absolute Auto 3000 /uL (1500-7000); Neutrophils Percent Auto 61.9 % (50-75); Platelet Count 206 X10^3/uL (150-400); Red Blood Cell Count 4.34 X10^6/uL (4.5-5.9); Red Cell Distribution Width 14.5 % (11.6-14.8); White Blood Cell Count 4.8 X10^3/uL (4.5-11.0)
[2022-04-15 17:13] LABS: BUN Creatinine Ratio 16.1 (6-22); Blood Urea Nitrogen 20 mg/dL (9-20); Carbon Dioxide 23 mmol/L (22-32); Chloride 101 mmol/L (98-107); Estimated Glomerular Filt Rate 58 mL/min (>60); Glucose 188 mg/dL (80-110); HEMOLYSIS < 15 (0-50); Potassium 4.1 mmol/L (3.4-5.1); Sodium 138 mmol/L (137-145)
[2022-04-15 20:10] LABS: Creatinine Urine Random 70.2 mg/dL
[2022-04-15 20:21] LABS: Protein (Total) Urine Random 448 mg/dL (0-12); Protein Creatinine Ratio Urine 6.38 GRAM/24H
== END ==
PROVIDERS: PCP Student in an Organized Health Care Education/Training Program; Referring Provider Student in an Organized Health Care Education/Training Program; Visit Provider Student in an Organized Health Care Education/Training Program
DX: N05.9 Unspecified nephritic syndrome with unspecified morphologic changes (principal); D70.9 Neutropenia, unspecified; D63.1 Anemia in chronic kidney disease; R80.9 Proteinuria, unspecified
CPT/HCPCS: 36415; 80048; 82570; 84156; 85025

== ENCOUNTER → 2022-05-27 15:13 | Outpatient (CLI) | payer MEDICARE, OTHER, SELFPAY ==
[2019-08-22 16:03] VITALS: BMI 27.2
[2022-05-27 16:37] LABS: BUN Creatinine Ratio 15.1 (6-22); Blood Urea Nitrogen 18 mg/dL (9-20); Calcium 9.1 mg/dL (8.4-10.2); Carbon Dioxide 27 mmol/L (22-32); Chloride 104 mmol/L (98-107); Estimated Glomerular Filt Rate > 60 mL/min (>60); Glucose 167 mg/dL (80-110); HEMOLYSIS < 15 (0-50); Potassium 4.8 mmol/L (3.4-5.1); Sodium 142 mmol/L (137-145)
[2022-05-27 17:45] LABS: Creatinine Urine Random 252.1 mg/dL
[2022-05-27 18:38] LABS: Protein (Total) Urine Random 2923 mg/dL (0-12); Protein Creatinine Ratio Urine 11.59 GRAM/24H
[2022-05-28 06:01] LABS: Parathyroid Hormone Int 64 pg/mL (15-65)
== END ==
PROVIDERS: PCP Student in an Organized Health Care Education/Training Program; Referring Provider Student in an Organized Health Care Education/Training Program; Visit Provider Student in an Organized Health Care Education/Training Program
DX: N05.9 Unspecified nephritic syndrome with unspecified morphologic changes (principal); N25.81 Secondary hyperparathyroidism of renal origin; R80.9 Proteinuria, unspecified
CPT/HCPCS: 36415; 80048; 82570; 83970; 84156

== ENCOUNTER → 2022-07-09 12:19 | Outpatient (CLI) | payer MEDICARE, OTHER, SELFPAY ==
[2019-08-22 16:03] VITALS: BMI 27.2
[2022-07-09 14:52] LABS: BUN Creatinine Ratio 12.2 (6-22); Blood Urea Nitrogen 11 mg/dL (9-20); Calcium 8.4 mg/dL (8.4-10.2); Carbon Dioxide 23 mmol/L (22-32); Chloride 103 mmol/L (98-107); Estimated Glomerular Filt Rate > 60 mL/min (>60); Glucose 173 mg/dL (80-110); HEMOLYSIS < 15 (0-50); Potassium 4.4 mmol/L (3.4-5.1); Sodium 138 mmol/L (137-145)
[2022-07-09 18:40] LABS: Protein (Total) Urine Random 941 mg/dL (0-12); Protein Creatinine Ratio Urine 11.47 GRAM/24H
== END ==
PROVIDERS: PCP Family Medicine; Referring Provider Student in an Organized Health Care Education/Training Program; Visit Provider Student in an Organized Health Care Education/Training Program
DX: N05.9 Unspecified nephritic syndrome with unspecified morphologic changes (principal); R80.9 Proteinuria, unspecified
CPT/HCPCS: 36415; 80048; 82570; 84156

== ENCOUNTER → 2023-02-06 13:05 | Outpatient (CLI) | payer MEDICARE, OTHER, SELFPAY ==
[2019-08-22 16:03] VITALS: BMI 27.2
--- NOTE | 2023-02-06 | DI.US.S_ITS ---
LIMITED ULTRASOUND OF RIGHT BREAST: 02/06/2023 CLINICAL: Palpable right breast lump. Comparison is made to exam dated: 02/06/2023 mammogram - [facility]. Color flow ultrasound of the right breast retroareolar was performed. Shine scale images of the real-time examination were reviewed. There is gynecomastia in the right breast central to the nipple that correlates with palpable abnormality. No other suspicious sonographic findings or findings to explain palpable abnormality. IMPRESSION: BENIGN There is no sonographic evidence of malignancy. Asymmetric gynecomastia is present and corresponds to the palpable abnormality. The patient should follow up with his primary care physician to discuss possible contributing factors including medication changes, and hormonal or lifestyle factors. Findings and recommendations were conveyed to the patient at time of exam. This exam was interpreted at Station ID: [id number]. Electronically Signed By: Alivia vilchis/:02/06/2023 14:00:38 letter sent: Normal Exam Ultrasound BI-RADS: 2 Benign
--- NOTE | 2023-02-06 | DI.MG.S_ITS ---
MALE BILATERAL DIGITAL DIAGNOSTIC MAMMOGRAM 3D/2D: 02/06/2023 CLINICAL: Right breast lump. No prior exams were available for comparison. There is asymmetric gynecomastia in the right breast that correlates with palpable abnormality. No significant masses, calcifications, or other findings are seen in either breast. IMPRESSION: INCOMPLETE: NEEDS ADDITIONAL IMAGING EVALUATION Asymmetric gynecomastia is present and correlates with the palpable area. Ultrasound is recommended for full evaluation of this area. This was performed immediately following this exam. This exam was interpreted at Station ID: [id number]. NOTE: For mammograms, a report in lay terms will be sent to the patient. Approximately 15% of breast malignancies will not be visualized mammographically. In the management of a palpable breast mass, a negative mammogram must not discourage biopsy of a clinically suspicious lesion. Electronically Signed By: Alivia vilchis/:02/06/2023 13:46:23 ACR BI-RADS Category 0: Incomplete [id number]
== END ==
PROVIDERS: PCP Family Medicine; Referring Provider Family Medicine; Visit Provider Family Medicine
DX: N63.15 Unspecified lump in the right breast, overlapping quadrants (principal); N62 Hypertrophy of breast; N63.10 Unspecified lump in the right breast, unspecified quadrant
CPT/HCPCS: 76642; 77066; G0279

== ENCOUNTER → 2023-02-06 14:03 | Outpatient (CLI) | payer MEDICARE, OTHER, SELFPAY ==
[2019-08-22 16:03] VITALS: BMI 27.2
[2023-02-06 14:26] LABS: Hematocrit 39.5 % (41-53); Hemoglobin 13.7 g/dL (13.5-17.5)
[2023-02-06 15:19] LABS: Creatinine Urine Random 108.5 mg/dL
[2023-02-06 15:26] LABS: BUN Creatinine Ratio 11.7 (6-22); Blood Urea Nitrogen 14 mg/dL (9-20); Calcium 8.8 mg/dL (8.4-10.2); Carbon Dioxide 27 mmol/L (22-32); Chloride 100 mmol/L (98-107); Estimated Glomerular Filt Rate > 60 mL/min (>60); Glucose 110 mg/dL (80-110); HEMOLYSIS < 15 (0-50); Potassium 3.9 mmol/L (3.4-5.1); Sodium 139 mmol/L (137-145)
[2023-02-06 15:57] LABS: Protein (Total) Urine Random 1718 mg/dL (0-12); Protein Creatinine Ratio Urine 15.83 GRAM/24H
[2023-02-08 12:27] LABS: Parathyroid Hormone Int 92 pg/mL (15-65)
== END ==
PROVIDERS: PCP Family Medicine; Referring Provider Student in an Organized Health Care Education/Training Program; Visit Provider Student in an Organized Health Care Education/Training Program
DX: N05.9 Unspecified nephritic syndrome with unspecified morphologic changes (principal); D64.9 Anemia, unspecified; N25.81 Secondary hyperparathyroidism of renal origin; R80.9 Proteinuria, unspecified
CPT/HCPCS: 36415; 80048; 82570; 83970; 84156; 85014; 85018

== ENCOUNTER → 2024-01-14 11:38 | Outpatient (CLI) | payer MEDICARE, OTHER, SELFPAY ==
[2019-08-22 16:03] VITALS: BMI 27.2
[2024-01-14 12:27] LABS: Hematocrit 37.2 % (41-53); Hemoglobin 12.7 g/dL (13.5-17.5)
[2024-01-14 12:43] LABS: BUN Creatinine Ratio 10.8 (6-22); Blood Urea Nitrogen 14 mg/dL (9-20); Calcium 8.5 mg/dL (8.4-10.2); Carbon Dioxide 24 mmol/L (22-32); Chloride 106 mmol/L (98-107); Estimated Glomerular Filt Rate 55 mL/min (>60); Glucose 166 mg/dL (80-110); HEMOLYSIS < 15 (0-50); Potassium 4.6 mmol/L (3.4-5.1); Sodium 139 mmol/L (137-145)
[2024-01-14 16:19] LABS: Creatinine Urine Random 108.6 mg/dL
[2024-01-14 17:06] LABS: Protein (Total) Urine Random 1233 mg/dL (0-12); Protein Creatinine Ratio Urine 11.35 GRAM/24H
[2024-01-16 10:57] LABS: Parathyroid Hormone Int 80 pg/mL (15-65)
== END ==
PROVIDERS: PCP Family Medicine; Referring Provider Student in an Organized Health Care Education/Training Program; Visit Provider Student in an Organized Health Care Education/Training Program
DX: N05.9 Unspecified nephritic syndrome with unspecified morphologic changes (principal); D70.9 Neutropenia, unspecified; D63.1 Anemia in chronic kidney disease; N25.81 Secondary hyperparathyroidism of renal origin; R80.9 Proteinuria, unspecified
CPT/HCPCS: 36415; 80048; 82570; 83970; 84156; 85014; 85018

== ENCOUNTER → 2024-02-11 13:32 | Outpatient (CLI) | payer MEDICARE, OTHER, SELFPAY ==
[2019-08-22 16:03] VITALS: BMI 27.2
--- NOTE | 2024-02-11 13:35 | DI.MG.S_ITS ---
MALE BILATERAL DIGITAL DIAGNOSTIC MAMMOGRAM 3D/2D: 02/11/2024 CLINICAL: Right Breast lump. Comparison is made to exam dated: 02/06/2023 mammogram - [facility]. There is stable asymmetric gynecomastia in both breasts, right greater than left. No significant masses, calcifications, or other findings are seen in either breast. Specifically, no finding to correspond to the patient's new right upper inner palpable abnormality. The right breast is slightly globally enlarged due to increased adipose. IMPRESSION: INCOMPLETE: NEEDS ADDITIONAL IMAGING EVALUATION Mammograms are stable including gynecomastia. There is no abnormality seen in the right breast to correspond with the palpable abnormality in the anterior depth in the upper inner quadrant. Ultrasound is recommended for full evaluation of this area. This was performed immediately following this exam. This exam was interpreted at Station ID: [id number]. NOTE: For mammograms, a report in lay terms will be sent to the patient. Approximately 15% of breast malignancies will not be visualized mammographically. In the management of a palpable breast mass, a negative mammogram must not discourage biopsy of a clinically suspicious lesion. Electronically Signed By: Alivia vilchis/:02/11/2024 14:29:21 ACR BI-RADS Category 0: Incomplete [id number]
--- NOTE | 2024-02-11 13:36 | DI.US.S_ITS ---
LIMITED ULTRASOUND OF RIGHT BREAST: 02/11/2024 CLINICAL: Palpable right breast lump. Comparison is made to exams dated: 02/11/2024 mammogram, 02/06/2023 ultrasound, and 02/06/2023 mammogram - [facility]. Color flow ultrasound of the right breast 2 o'clock, and retroareolar regions was performed. Shine scale images of the real-time examination were reviewed. No significant abnormalities were seen sonographically in the right breast. Right breast gynecomastia is stable. No new masses or fluid collections. No change to account for palpable abnormality. IMPRESSION: NEGATIVE There is no sonographic evidence of malignancy. Gynecomastia is present, unchanged from prior exam. Clinical follow up is recommended for symptoms as needed, including surgical consult if warranted. Findings and recommendations were conveyed to the patient at time of exam. This exam was interpreted at Station ID: [id number]. Electronically Signed By: Alivia vilchis/:02/11/2024 16:01:53 letter sent: Normal Exam Ultrasound BI-RADS: 1 Negative
== END ==
LOC: MAMMO 13:34
PROVIDERS: PCP Family Medicine; Referring Provider Family Medicine; Visit Provider Family Medicine
DX: N63.41 Unspecified lump in right breast, subareolar; N62 Hypertrophy of breast; R92.8 Other abnormal and inconclusive findings on diagnostic imaging of breast
CPT/HCPCS: 76642; 77066; G0279

== ENCOUNTER → 2024-09-29 10:25 | Outpatient (CLI) | payer MEDICARE, OTHER, SELFPAY ==
[2019-08-22 16:03] VITALS: BMI 27.2
[2024-09-29 11:16] LABS: Add Manual Diff / Slide Review NO; Basophils Absolute Auto 100 /uL (0-100); Basophils Percent Auto 1.1 % (0-2); Eosinophils Absolute Auto 200 /uL (0-450); Hematocrit 37.4 % (41-53); Hemoglobin 12.4 g/dL (13.5-17.5); Lymphocytes Absolute Auto 1300 /uL (1100-4500); Lymphocytes Percent Auto 25.7 % (25-40); Mean Corpuscular HGB Conc 33.1 % (30-36); Mean Corpuscular Hemoglobin 31.7 PG (26-34); Mean Corpuscular Volume 95.8 fL (80-100); Monocytes Absolute Auto 400 /uL (0-900); Monocytes Percent Auto 9.1 % (3-14); Neutrophils Absolute Auto 3000 /uL (1500-7000); Neutrophils Percent Auto 60.1 % (50-75); Platelet Count 238 X10^3/uL (150-400); Red Cell Distribution Width 15.5 % (11.6-14.8); White Blood Cell Count 4.9 X10^3/uL (4.5-11.0)
[2024-09-29 11:33] LABS: Hemoglobin A1C% w Est Avg Glu 7.1 % (4.0-6.0)
[2024-09-29 11:37] LABS: Alanine Aminotransferase 20 IU/L (<50); Alkaline Phosphatase 88 U/L (38-126); Aspartate Aminotransferase 24 IU/L (17-59); BUN Creatinine Ratio 15.7 (6-22); Bilirubin Total 0.4 mg/dL (0.2-1.3); Blood Urea Nitrogen 22 mg/dL (9-20); Carbon Dioxide 17 mmol/L (22-32); Estimated Glomerular Filt Rate 50 mL/min (>60); HEMOLYSIS < 15 (0-50)
[2024-09-29 11:39] LABS: Albumin Globulin Ratio 1.6 (1.0-2.8); Calcium 8.9 mg/dL (8.4-10.2); Chloride 109 mmol/L (98-107); Cholesterol 141 mg/dL (140-199); Globulin 2.5 g/dL (1.7-4.1); Glucose 219 mg/dL (80-110); HDL Cholesterol 29 mg/dL (40-60); Potassium 4.3 mmol/L (3.4-5.1); Sodium 140 mmol/L (137-145); Total Protein 6.5 g/dL (6.3-8.2)
[2024-09-29 11:52] LABS: Triglycerides 955 mg/dL (35-150)
[2024-09-29 12:06] LABS: Thyroid Stimulating Hormone 3.67 uIU/mL (0.47-4.68)
== END ==
LOC: LAB 10:27
PROVIDERS: PCP Family Medicine; Referring Provider Family Medicine; Visit Provider Family Medicine
DX: E11.9 Type 2 diabetes mellitus without complications (principal); I10 Essential (primary) hypertension; E78.5 Hyperlipidemia, unspecified
CPT/HCPCS: 36415; 80053; 80061; 83036; 84443; 85025

== ENCOUNTER → 2024-11-18 14:48 | Outpatient (CLI) | payer MEDICARE, OTHER, SELFPAY ==
[2019-08-22 16:03] VITALS: BMI 27.2
[2024-11-18 16:33] LABS: Hemoglobin 12.5 g/dL (13.5-17.5)
[2024-11-18 16:54] LABS: Calcium 8.7 mg/dL (8.4-10.2); Carbon Dioxide 25 mmol/L (22-32); Chloride 104 mmol/L (98-107); Glucose 176 mg/dL (80-110); HEMOLYSIS < 15 (0-50); Potassium 3.6 mmol/L (3.4-5.1); Sodium 137 mmol/L (137-145)
[2024-11-18 16:58] LABS: Blood Urea Nitrogen 16 mg/dL (9-20); Estimated Glomerular Filt Rate 53 mL/min (>60)
[2024-11-19 10:08] LABS: Parathyroid Hormone Int 66 pg/mL (15-65)
== END ==
PROVIDERS: PCP Family Medicine; Referring Provider Student in an Organized Health Care Education/Training Program; Visit Provider Student in an Organized Health Care Education/Training Program
DX: D70.9 Neutropenia, unspecified (principal); E03.9 Hypothyroidism, unspecified
CPT/HCPCS: 36415; 80048; 83970; 85014; 85018

== ENCOUNTER 2025-06-04 17:50 | Emergency (ER) | payer MEDICARE, OTHER, SELFPAY ==
[2019-08-22 16:03] VITALS: BMI 27.2
[2025-06-04] VITALS (20 sets, daily range): BP systolic 167–219; BP diastolic 93–114; PULSE 72–77; RESP 20–27; TEMP 36.8; O2SAT 93–97; BMI 24.7
--- NOTE | 2025-06-04 18:05 | DI.RAD.S_ITS ---
PROCEDURE: XR CHEST 1V INDICATIONS: Chest Pain TECHNIQUE: One view of the chest was acquired. COMPARISON: [facility], CR, XR CHEST 2V, 09/07/2019, 13:24. FINDINGS: Surgical changes and devices: None. Lungs and pleura: Elevated right hemidiaphragm, stable. Left basilar atelectasis and or infiltrate Mediastinum: Mediastinal contours appear normal. Heart size is normal. Atherosclerotic vascular calcification noted in the aortic arch. Bones and chest wall: No suspicious bony lesions. Overlying soft tissues appear unremarkable. IMPRESSION: Left basilar atelectasis and or infiltrate Approved by: Chin Ryan M.D. on 06/04/2025 at 17:39
--- NOTE | 2025-06-04 18:09 | EKG_ITS ---
[place] [id number] [place] [id number] Test Date: 2025-06-04 Pat Name: Mendy Quarles Department: [facility] Room: Gender: Male [employer]: RAUL : 1940 Requested By: Order Number: [id number] Reading MD: Devendra Arguello Measurements Intervals [place] Rate: 76 P: 22 [place]: 176 QRS: -22 QRSD: 94 T: 60 QT: 418 QTc: 470 Interpretive Statements Normal sinus rhythm Inferior infarct , age undetermined Electronically Signed On 06-17-2025 8:13:57 PDT by Devendra Arguello
--- NOTE | 2025-06-04 18:44 | PC.NURSE ---
pt denies chest pain, reprts has been feeling short of breath with exertion over last week and a half
[2025-06-04 18:50] LABS: Add Manual Diff / Slide Review NO; Hematocrit 34.9 % (41-53); Hemoglobin 11.8 g/dL (13.5-17.5); Lymphocytes Absolute Auto 900 /uL (1100-4500); Mean Corpuscular HGB Conc 34.0 % (30-36); Mean Corpuscular Hemoglobin 31.9 PG (26-34); Mean Corpuscular Volume 93.8 fL (80-100); Platelet Count 232 X10^3/uL (150-400)
[2025-06-04 18:52] LABS: INR 1.0 (0.9-1.3); Prothrombin Time 10.8 SECONDS (9.4-12.5)
[2025-06-04 18:55] LABS: PTT Partial Thromboplastin Tim 31 SECONDS (25.1-36.5)
[2025-06-04 18:56] LABS: Alanine Aminotransferase 19 IU/L (<50); Albumin 4.1 g/dL (3.5-5.0); Albumin Globulin Ratio 1.5 (1.0-2.8); Alkaline Phosphatase 50 U/L (38-126); Blood Urea Nitrogen 20 mg/dL (9-20); Calcium 8.7 mg/dL (8.4-10.2); Carbon Dioxide 20 mmol/L (22-32); Chloride 106 mmol/L (98-107); Creatine Kinase 54 U/L (55-170); Estimated Glomerular Filt Rate 42 mL/min (>60); Globulin 2.8 g/dL (1.7-4.1); Glucose 183 mg/dL (70-99); HEMOLYSIS < 15 (0-50); Lipase 132 U/L (23-300); Magnesium 1.4 mg/dL (1.6-2.3); Potassium 4.7 mmol/L (3.4-5.1); Sodium 138 mmol/L (137-145); Total Protein 6.9 g/dL (6.3-8.2)
[2025-06-04 19:08] LABS: NT-proBNP (BNP-Adult 18+) 2030 pg/mL (<450); Troponin I 0.018 ng/mL (0.01-0.034)
--- NOTE | 2025-06-04 20:23 | ED.CHESTPAIN ---
HPI - Chest Pain General Chief Complaint: Chest Pain Stated Complaint: High BP, Lightheaded, Strange feeling in chest Time Seen by Provider: 06/04/25 20:04 Source: patient Mode of arrival: Ambulatory Limitations: no limitations History of Present Illness HPI narrative: 85-year-old male with no known history of CAD, does not recall CHF, has history of diabetes and hypertension, no chronic lung disease. Has one-week duration of increased dyspnea with minimal exertion, as a change from his baseline, quite short of breath when attempting to go upstairs for example. He has had some intermittent chest discomfort, none current. No recent cough, fevers or chills. No changes in medications, no missed doses of his blood pressure or other chronic medications. No lower extremity edema. Related Data Home Medications ?Medication ?Instructions ?Recorded ?Confirmed ezetimibe 10 mg tablet (Zetia) 10 mg PO DAILY 12/29/18 01/02/22 insulin glargine 100 unit/mL 70 unit SUBCUT BID 12/29/18 01/02/22 subcutaneous solution (Lantus U-100 Insulin) amlodipine 10 mg tablet 10 mg PO DAILY 08/22/19 01/02/22 gemfibrozil 600 mg tablet 600 mg PO BID 08/22/19 01/02/22 hydrochlorothiazide 25 mg tablet 25 mg PO DAILY 08/22/19 01/02/22 ibuprofen 200 mg capsule 400 mg PO Q6H PRN Breakthrough 08/22/19 01/02/22 Pain, Moderate glipizide 5 mg tablet 5 mg PO BID 09/07/19 01/02/22 ketorolac 10 mg tablet 10 mg PO Q6H PRN pain 09/07/19 01/02/22 lisinopril 40 mg tablet 40 mg PO DAILY 09/07/19 01/02/22 metformin 1,000 mg tablet 1,000 mg PO BID 09/07/19 01/02/22 metoprolol tartrate 100 mg tablet 100 mg PO BID 09/07/19 01/02/22 prednisone 10 mg tablet 20 mg PO DAILY 09/07/19 01/02/22 Respironics DreamStation BI PAP 01/02/22 01/02/22 empagliflozin [Jardiance] PO 01/02/22 01/02/22 Previous Rx's ?Medication ?Instructions ?Recorded hydrocodone 5 mg-acetaminophen 325 1 tab PO Q4-6H PRN pain #20 tabs 07/31/19 mg tablet lidocaine 5 % topical patch 1 patch topical DAILY #15 ea 07/31/19 (Lidoderm) nystatin 100,000 unit/gram topical 1 applic topical TID #30 grams 12/07/20 cream amlodipine 10 mg tablet 10 mg PO DAILY #7 tabs 06/04/25 amoxicillin 875 mg tablet 875 mg PO BID dental infection 10 06/04/25 days #20 tabs doxycycline hyclate 100 mg capsule 100 mg PO BID #20 caps 06/04/25 Allergies Allergy/AdvReac Type Severity Reaction Status Date / Time No Known Drug Allergies Allergy Verified 06/04/25 18:11 Patient History Medical History (Updated 06/04/25 @ 22:12 by Aaron Engel MD) Snoring Obstructive sleep apnea Insomnia Diabetes Hyperlipidemia Hypertension WELLER (dyspnea on exertion) Degenerative disc disease, lumbar Social History household members: spouse Smoking Status: Never smoker alcohol intake: never Smoking Status: Never smoker Exam Narrative Exam Narrative: GENERAL: Well-developed patient, in mild distress. HEAD: Atraumatic. Normocephalic. EYES: Pupils equal round and reactive. Extraocular motions intact. No scleral icterus. No injection or drainage. ENT: Nose without bleeding, purulent drainage. Throat without erythema, tonsillar hypertrophy or exudate. Airway patent. NECK: Trachea midline. Non tender CARDIOVASCULAR: Regular rate and rhythm without murmurs, gallops, or rubs. RESPIRATORY: Clear to auscultation. Breath sounds equal bilaterally. No wheezes, rales, or rhonchi. GASTROINTESTINAL: Abdomen soft, non-tender, nondistended. EXTREMITIES: No edema or joint tenderness. BACK: Nontender without deformity or crepitance. No flank tenderness. NEURO: AOx3. Motor functions grossly nonfocal. SKIN: No rash or erythema of visible areas Initial Vital Signs Initial Vital Signs: Vital Signs Temperature 98.3 F 06/04/25 18:05 Pulse Rate 75 06/04/25 18:05 Respiratory Rate 20 06/04/25 18:05 Blood Pressure 169/93 H 06/04/25 18:05 Pulse Oximetry 97 06/04/25 18:05 Oxygen Delivery Method Room Air 06/04/25 18:05 Course Orders Ordered: ED Orders 06/04/25 18:36 Complete Blood Count AUTO DIFF Stat Comprehensive Metabolic Panel Stat Lipase Stat Magnesium Stat NT-proBNP (BNP-Adult 18+) Stat PTT Partial Thromboplastin Crescencio Stat Prothrombin Time INR Stat Troponin & CK Cardiac Panel Stat 06/04/25 20:25 Troponin I Stat 06/04/25 20:30 EKG-12 Lead Stat 06/04/25 20:50 Lactate (Lactic Acid) Stat Procalcitonin Stat Troponin I Stat 06/04/25 20:59 Blood Culture Stat Discontinued Medications Albuterol (Albuterol Hfa Prepack) 1 box MISC DIRECTED ONE Stop: 06/04/25 22:13 Last Admin: 06/04/25 22:24 Dose: 1 box Documented By: CROW Amlodipine Besylate (Amlodipine 5 Mg Tablet) 5 mg PO NOW ONE Stop: 06/04/25 21:47 Last Admin: 06/04/25 22:24 Dose: 5 mg Documented By: CROW Aspirin (Aspirin 81 Mg Chew Tab) 324 mg PO NOW ONE Stop: 06/04/25 18:06 Doxycycline Hyclate (Doxycycline Hyclate 100 Mg Tablet) 100 mg PO NOW ONE Stop: 06/04/25 20:29 Last Admin: 06/04/25 20:37 Dose: 100 mg Documented By: CROW Magnesium Sulfate (Magnesium Sulfate) 2 gm in 50 mls @ 150 mls/hr IV NOW ONE Stop: 06/04/25 20:44 Last Infusion: 06/04/25 22:18 Dose: Infused Documented By: CROW Co-signed By: IRVIN Admin: 06/04/25 21:33 Dose: 150 mls/hr Documented By: CROW Co-signed By: Ceftriaxone Sodium 1,000 mg/ (Sodium Chloride) 100 mls @ 200 mls/hr IV NOW ONE Stop: 06/04/25 20:29 Last Infusion: 06/04/25 21:32 Dose: Infused Documented By: Admin: 06/04/25 20:36 Dose: 200 mls/hr Documented By: CROW Nitroglycerin (Nitroglycerin Oint 1 Inch/Gm Oint...G.) 1 inch TOP NOW ONE Stop: 06/04/25 20:51 Last Admin: 06/04/25 21:04 Dose: 1 inch Documented By: CROW Vital Signs Vital signs: Vital Signs - 8 hr 06/04/25 19:30 06/04/25 19:30 06/04/25 20:00 Pulse Rate 73 74 Respiratory Rate 21 22 Blood Pressure 180/95 H Pulse Oximetry 96 93 Oxygen Delivery Method 06/04/25 20:01 06/04/25 20:01 06/04/25 20:30 Pulse Rate 74 75 Respiratory Rate 22 27 H Blood Pressure 215/110 H Pulse Oximetry 93 95 Oxygen Delivery Method 06/04/25 20:31 06/04/25 20:31 06/04/25 20:57 Pulse Rate 75 77 Respiratory Rate 20 24 Blood Pressure 219/114 H Pulse Oximetry 95 94 Oxygen Delivery Method 06/04/25 20:57 06/04/25 21:00 06/04/25 21:00 Pulse Rate 76 Respiratory Rate 22 Blood Pressure 203/107 H 198/105 H Pulse Oximetry 94 Oxygen Delivery Method Room Air 06/04/25 21:04 06/04/25 21:30 06/04/25 21:30 Pulse Rate 76 77 Respiratory Rate 21 Blood Pressure 198/105 H 197/100 H Pulse Oximetry 94 Oxygen Delivery Method 06/04/25 22:00 06/04/25 22:00 06/04/25 22:29 Pulse Rate 77 73 Respiratory Rate 24 24 Blood Pressure 187/101 H Pulse Oximetry 97 94 Oxygen Delivery Method 06/04/25 22:30 06/04/25 22:31 06/04/25 22:32 Pulse Rate 73 72 Respiratory Rate 22 24 Blood Pressure 203/99 H Pulse Oximetry 97 Oxygen Delivery Method 06/04/25 22:32 06/04/25 22:36 06/04/25 22:36 Pulse Rate 72 Respiratory Rate 22 Blood Pressure 207/105 H 195/106 H Pulse Oximetry 95 Oxygen Delivery Method MDM - Chest Pain Lab Data Attestation: I reviewed the patient's lab results. Lab results narrative: White blood cell count 4000, hemoglobin 11.8, platelets adequate. BUN 20 with creatinine 1.6 noted. Glucose 183. Electrolytes unremarkable. Serum CO2 20 noted slight low. Magnesium 1.4 low. Liver functions normal. Lipase normal. BNP 2030 elevated. Troponin 0.18 measurable but quite low. 06/04/25 18:36 06/04/25 18:36 Labs: Lab Results 06/04/25 06/04/25 06/04/25 Range/Units 18:36 20:25 20:50 WBC 4.0 L (4.5-11.0) X10^3/uL RBC 3.72 L (4.5-5.9) X10^6/uL Hgb 11.8 L (13.5-17.5) g/dL Hct 34.9 L (41-53) % MCV 93.8 (80-100) fL MCH 31.9 (26-34) PG MCHC 34.0 (30-36) % RDW 16.7 H (11.6-14.8) % Plt Count 232 (150-400) X10^3/uL Neut % (Auto) 65.0 (50-75) % Lymph % (Auto) 23.4 L (25-40) % Darke % (Auto) 8.3 (3-14) % Eos % (Auto) 2.5 (2-4) % Baso % (Auto) 0.8 (0-2) % Neut # (Auto) 2600 (2515-8318) /uL Lymph # (Auto) 900 L (6717-9555) /uL Darke # (Auto) 300 (0-900) /uL Eos # (Auto) 100 (0-450) /uL Baso # (Auto) 0 (0-100) /uL PT 10.8 (9.4-12.5) SECONDS INR 1.0 (0.9-1.3) APTT 31 (25.1-36.5) SECONDS Sodium 138 (137-145) mmol/L Potassium 4.7 (3.4-5.1) mmol/L Chloride 106 (98-107) mmol/L Carbon Dioxide 20 L (22-32) mmol/L BUN 20 (9-20) mg/dL Creatinine 1.61 H (0.66-1.25) mg/dL Estimated GFR 42 L (>60) mL/min BUN/Creatinine Ratio 12.4 (6-22) Glucose 183 H (70-99) mg/dL Lactate 1.9 (0.7-2.1) mmol/L Calcium 8.7 (8.4-10.2) mg/dL Magnesium 1.4 L (1.6-2.3) mg/dL Total Bilirubin 0.5 (0.2-1.3) mg/dL AST 26 (17-59) IU/L ALT 19 (<50) IU/L Alkaline Phosphatase 50 (38-126) U/L Total Creatine Kinase 54 L (55-170) U/L Troponin I 0.018 0.018 0.017 (0.01-0.034) ng/mL NT-Pro-B Natriuret Pep 2030 H (<450) pg/mL Total Protein 6.9 (6.3-8.2) g/dL Albumin 4.1 (3.5-5.0) g/dL Globulin 2.8 (1.7-4.1) g/dL Albumin/Globulin Ratio 1.5 (1.0-2.8) Lipase 132 (23-300) U/L Procalcitonin 0.086 (<0.5) ng/mL Imaging Data Chest x-ray: Radiologist's Impression: [address] [address] XRay Report Signed Patient: Mendy Quarles MR#: [id number] : 1940 Acct:[id number] Age/Sex: 85 / M Date of Service: 06/04/25 Loc: ED Accession Number: [id number] Procedure: XR chest 1V Ordering Provider: Jennifer Renee MD PROCEDURE: XR CHEST 1V INDICATIONS: Chest Pain TECHNIQUE: One view of the chest was acquired. COMPARISON: [facility], , XR CHEST 2V, 09/07/2019, 13:24. FINDINGS: Surgical changes and devices: None. Lungs and pleura: Elevated right hemidiaphragm, stable. Left basilar atelectasis and or infiltrate Mediastinum: Mediastinal contours appear normal. Heart size is normal. Atherosclerotic vascular calcification noted in the aortic arch. Bones and chest wall: No suspicious bony lesions. Overlying soft tissues appear unremarkable. IMPRESSION: Left basilar atelectasis and or infiltrate Approved by: Chin Ryan M.D. on 06/04/2025 at 17:39 ECG Data Attestation: I personally reviewed and interpreted this ECG as follows: Interpretation: 1809, normal sinus rhythm with rate of 76, no obvious ST segment elevation or depression changes. ME 176, QRS 94, QTC 470. 2030, normal sinus rhythm with rate of 75, no obvious ST segment elevation or depression changes. ME 190, QRS 94, QTC 466. MDM Narrative Medical decision making narrative: 85-year-old male with recent dyspnea on exertion change from baseline for the last 1 week. Intermittent chest discomfort none current. No recent cough. Room air sat adequate. Speaking in full sentences. No lower extremity edema. EKG, chest x-ray, labs pending. DDX consider ACS, CHF, pneumonia, reactive airways, other. Lab data: White blood cell count 4000, hemoglobin 11.8, platelets adequate. BUN 20 with creatinine 1.6 noted. Glucose 183. Electrolytes unremarkable. Serum CO2 20 noted slight low. Magnesium 1.4 low. Liver functions normal. Lipase normal. BNP 2030 elevated. Troponin 0.018 measurable but quite low. Hypomagnesemia, IV magnesium 2 g ordered. Chest x-ray shows left basilar infiltrate versus atelectasis. See radiology report. We will hold IV fluids given elevated BNP. Blood pressure elevated. Nitro patch for now. We will repeat interval troponin. Blood cultures, IV ceftriaxone, oral doxycycline. Consider admission. We will discussed with cross cover physician Dr. Bernard on-call. Case discussed with Dr. Bernard cross cover for PCP Dr. Schroeder, who felt that patient could be discharged home for now, and treated with oral antibiotics and inhaler. Patient/ agreeable to this plan. Prescription for amoxicillin and doxycycline sent to his pharmacy, dispensed albuterol inhaler with spacer. Discharged home with family. Advised recheck with PCP early next week. Return precautions discussed. Discharge Plan Departure Patient Disposition: Home Clinical Impression: Hypomagnesemia, Exertional dyspnea, Pneumonia Activity Restrictions/Additional Instructions: Recent shortness of breath with minimal exertion, as it change from recent baseline. No cough or fever. Normal oxygenation on room air noted. No respiratory distress, able to speak in full sentences with clear lungs on examination. No swelling to the legs. EKG and blood testing not suggestive of heart attack at this time. Chest x-ray suspicious for possible left basilar pneumonia. Antibiotics initiated in the emergency department, further antibiotics to take at home prescription sent to your pharmacy. Trial of inhaler with spacer, 2 puffs 4 times daily for the next week and then as needed. Case was discussed with Dr. Bernard who was covering for your regular doctor, who was able to review records, thought that you can be treated as an outpatient for now with a trial of antibiotics and inhaler. Blood pressure was elevated, we gave nitroglycerin and amlodipine. You had taken amlodipine in the past. We will give a refill of amlodipine 10 mg daily for now, no allergic reaction or intolerance recalled, one-week supply prescription sent also to your pharmacy. Recheck symptoms in blood pressure with your regular doctor later this week. Trial of outpatient treatment for now. Return earlier to this/nearest emergency department for any change worsening symptoms or any concerns prior. Prescriptions: New amlodipine 10 mg tablet 10 mg PO DAILY Qty: 7 0RF amoxicillin 875 mg tablet 875 mg PO BID 10 Days Qty: 20 0RF doxycycline hyclate 100 mg capsule 100 mg PO BID Qty: 20 0RF No Action hydrocodone-acetaminophen 5-325 mg tablet 1 tab PO Q4-6H PRN (Reason: pain) Qty: 20 0RF lidocaine [Lidoderm] 5 % adhesive patch,medicated 1 patch TOP DAILY Qty: 15 0RF Patient Comments: lower back/saccrum area Rx Instructions: leave on most painful area for 12 hrs prednisone 10 mg tablet 20 mg PO DAILY Patient Comments: take 2 tablets by mouth twice a day metoprolol tartrate 100 mg tablet 100 mg PO BID Patient Comments: take 1 tablet by mouth twice a day ketorolac 10 mg tablet 10 mg PO Q6H PRN (Reason: pain) Patient Comments: take 1 tablet by mouth every 6 hours if needed for pain metformin 1,000 mg tablet 1,000 mg PO BID Patient Comments: take 1 tablet by mouth twice a day lisinopril 40 mg tablet 40 mg PO DAILY Patient Comments: take 1 tablet by mouth once daily glipizide 5 mg tablet 5 mg PO BID Patient Comments: take 1 tablet by mouth twice a day before meals for diabetes Lantus U-100 Insulin 100 unit/mL Solution 70 unit SUBCUT BID ezetimibe [Zetia] 10 mg Tablet 10 mg PO DAILY amlodipine 10 mg Tablet 10 mg PO DAILY ibuprofen 200 mg Capsule 400 mg PO Q6H PRN (Reason: Breakthrough Pain, Moderate) Rx Instructions: taking since breaking his nose beginning of august 2019 gemfibrozil 600 mg Tablet 600 mg PO BID hydrochlorothiazide 25 mg Tablet 25 mg PO DAILY nystatin 100,000 unit/gram cream 1 applic topical TID Qty: 30 2RF (DME) Respironics DreamStation BI PAP See Rx Instructions .ROUTE .MEDSUPPLY Rx Instructions: BIPAP Auto Max IPAP: 16 Min EPAP: 8 Max PS: 4 Min PS: 2 DME: [employer] empagliflozin [Jardiance] PO Referrals: Sawyer Schroeder MD [Primary Care Provider, Family Practice] Stand Alone Forms: Patient Portal/API
--- NOTE | 2025-06-04 20:31 | EKG_ITS ---
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
[2025-06-04] MEDS: DOXYCYCLINE HYCLATE 100 MG TABLET PO (20:37)
[2025-06-04] MEDS: NITROGLYCERIN OINT 1 INCH/GM OINT...G. TOP (21:04)
[2025-06-04 21:06] LABS: Troponin I 0.018 ng/mL (0.01-0.034)
[2025-06-04 21:17] LABS: Lactate (Lactic Acid) 1.9 mmol/L (0.7-2.1)
[2025-06-04 21:30] LABS: Troponin I 0.017 ng/mL (0.01-0.034)
[2025-06-04] MEDS: MAGNESIUM SULFATE 2 GM/50 ML PIGGYBACK IV (21:33)
[2025-06-04 21:35] LABS: Procalcitonin 0.086 ng/mL (<0.5)
[2025-06-04] MEDS: ALBUTEROL HFA PREPACK 1 BOX MISC (22:24)
[2025-06-04] MEDS: AMLODIPINE 5 MG TABLET PO (22:24)
== END 2025-06-04 22:44 | disposition home or self-care (01) ==
PROVIDERS: Emergency Medicine; Emergency Provider Emergency Medicine; PCP Family Medicine
DX: R06.09 Other forms of dyspnea (principal); J18.9 Pneumonia, unspecified organism; E83.42 Hypomagnesemia; R07.9 Chest pain, unspecified
CPT/HCPCS: 36415; 71045; 80053; 82550; 83605; 83690; 83735; 83880; 84145; 84484; 85025; 85610; 85730; 87040; 87077; 87186; 93005; 96365; 96367; 99284; J0696; J3475